=== PATIENT | female | born 1955 | race Two or more races ===

== ENCOUNTER 2024-01-04 19:39 | Inpatient (IN) | payer MEDICARE, MEDICAID ==
[~2024-01-04] VITALS: Ht 154.9 cm; Wt 107.6 kg
[2024-01-04 20:25] LABS: Basophils # (auto) 0 10 ^3/uL (0-0.2); Basophils % (auto) 0.6 % (0.0-2.0); Eosinophils # (auto) 0.1 10 ^3/uL (0-0.8); Hematocrit 40.1 % (36.0-46.0); Hemoglobin 13.9 g/dL (12.2-16.2); Lymphocytes # (auto) 2.1 10 ^3/uL (0.4-5.4); Lymphocytes % (auto) 28.7 % (10.0-50.0); Mean Corpuscular Hemoglobin 30.6 pg (28.0-32.0); Mean Corpuscular Hgb Conc. 34.7 g/dL (32.0-36.0); Mean Corpuscular Volume 88.1 fL (80.0-100.0); Monocytes # (auto) 0.8 10 ^3/uL (0-1.3); Monocytes % (auto) 10.5 % (0.0-12.0); Neutrophils # (auto) 4.2 10 ^3/uL (1.6-8.6); Neutrophils % (auto) 58.2 % (37.0-80.0); Nucleated Red Blood Cells % 0.2 %; Platelet Count (auto) 289 10^3/uL (140-450); Red Blood Cells 4.55 10^6/uL (4.0-5.20); Red Cell Distribution Width 13.6 % (11.8-14.3); White Blood Cell 7.3 10^3/uL (4.4-10.8)
[2024-01-04 20:43] LABS: Alanine Aminotransferase 28 U/L (7-40); Alkaline Phosphatase 104 U/L (46-116); Anion Gap 3 (5-15); Aspartate Aminotransferase 57 U/L (13-40); BUN/Creatinine Ratio 18.8 (10.0-20.0); Blood Urea Nitrogen 15 mg/dL (9-23); Calcium 10.1 mg/dL (8.7-10.4); Carbon Dioxide 29 mmol/L (20-30); Chloride 106 mmol/L (98-107); Glucose 92 mg/dL (74-106); Lipase 21 U/L (12-53); Potassium 4.5 mmol/L (3.5-5.1); Sodium 138 mmol/L (136-145)
[2024-01-04 20:44] LABS: Albumin 3.9 g/dL (3.2-4.8); Bilirubin, Total 0.5 mg/dL (0.2-1.0); Total Protein 7.4 g/dL (5.7-8.2)
[2024-01-04 21:49] VITALS: PULSE 92; RESP 16; O2SAT 97
[2024-01-04] MEDS: HYDROcodone-ACET 10/325MG TAB PO ONE (23:04)
[2024-01-04 23:56] LABS: Urine Bacteria FEW /hpf (None Seen); Urine Blood Negative /uL (Negative); Urine Clarity Clear (Clear); Urine Color Light-Yellow (Yellow); Urine Mucus FEW (None Seen); Urine Protein, UAD Negative (Negative); Urine Specific Gravity 1.015 (1.001-1.035); Urine Urobilinogen Normal (Negative); Urine WBC 1 /hpf (0 - 5)
[2024-01-05] MEDS: ONDANSETRON ODT 4 MG TAB PO ONE (00:20)
[2024-01-05] MEDS: MORPHINE SULFATE 4 MG/ML SYR/VIAL IV ONE (00:22)
[2024-01-05 01:00] VITALS: PULSE 99; RESP 14; O2SAT 94
[2024-01-05] MEDS ORDERED: DOCUSATE SOD 100 MG CAP PO PRN (01:30)
[2024-01-05] MEDS ORDERED: ACETAMINOPHEN 325 MG TAB PO PRN (01:30)
[2024-01-05] MEDS ORDERED: hydrALAZINE HCL 20 MG/ML VL IV PRN (01:30)
[2024-01-05] MEDS ORDERED: DEXTROSE (50%) 50ML SYRG IV PRN (01:30)
[2024-01-05] MEDS: hydrALAZINE HCL 20 MG/ML VL IV ONE (02:44)
[2024-01-05] MEDS: MORPHINE SULFATE INJ 2 MG/ml SYRG IV PRN (03:42)
[2024-01-05] MEDS: ONDANSETRON HCL 4 MG/2 ML VIAL IV PRN (03:42)
[2024-01-05] MEDS: TEMAZEPAM 15 MG CAP PO ONE (05:00)
[2024-01-05 05:18] LABS: Basophils # (auto) 0.1 10 ^3/uL (0-0.2); Basophils % (auto) 0.7 % (0.0-2.0); Eosinophils # (auto) 0.2 10 ^3/uL (0-0.8); Eosinophils % (auto) 2.1 % (0.0-7.0); Hematocrit 39.8 % (36.0-46.0); Hemoglobin 13.8 g/dL (12.2-16.2); Lymphocytes # (auto) 3.1 10 ^3/uL (0.4-5.4); Lymphocytes % (auto) 41.1 % (10.0-50.0); Mean Corpuscular Hemoglobin 30.9 pg (28.0-32.0); Mean Corpuscular Hgb Conc. 34.6 g/dL (32.0-36.0); Mean Corpuscular Volume 89.2 fL (80.0-100.0); Monocytes # (auto) 0.7 10 ^3/uL (0-1.3); Monocytes % (auto) 8.7 % (0.0-12.0); Neutrophils # (auto) 3.6 10 ^3/uL (1.6-8.6); Neutrophils % (auto) 47.4 % (37.0-80.0); Nucleated Red Blood Cells % 0.4 %; Platelet Count (auto) 284 10^3/uL (140-450); Red Blood Cells 4.46 10^6/uL (4.0-5.20); Red Cell Distribution Width 13.4 % (11.8-14.3); White Blood Cell 7.6 10^3/uL (4.4-10.8)
[2024-01-05 05:21] LABS: Alanine Aminotransferase 23 U/L (7-40); Albumin 3.7 g/dL (3.2-4.8); Alkaline Phosphatase 93 U/L (46-116); Anion Gap 10 (5-15); Aspartate Aminotransferase 57 U/L (13-40); BUN/Creatinine Ratio 16.2 (10.0-20.0); Bilirubin, Total 0.6 mg/dL (0.2-1.0); Blood Urea Nitrogen 12 mg/dL (9-23); Calcium 9.8 mg/dL (8.7-10.4); Carbon Dioxide 24 mmol/L (20-30); Chloride 105 mmol/L (98-107); Glucose 124 mg/dL (74-106); Potassium 4.1 mmol/L (3.5-5.1); Sodium 139 mmol/L (136-145); Total Protein 7.2 g/dL (5.7-8.2)
[2024-01-05] MEDS: SODIUM CHLOR 0.9% PF (SALINE LOCK) 10ML VIAL/SYR IV SCH (06:11)
[2024-01-05] MEDS: GABAPENTIN 300 MG CAP PO ONE (06:19)
[2024-01-05] MEDS: ACCU-CHEK COMFORT CURVE STRIP VI SCH (06:19)
[2024-01-05] MEDS: HYDROcodone-ACET 5/325MG TAB PO PRN (06:19)
[2024-01-05] MEDS: InsuLIN REG 1unit/0.01ml Soln (100units/ml) SC SCH ×2 (06:28→21:11)
[2024-01-05] MEDS ORDERED: MORPHINE SULFATE INJ 2 MG/ml SYRG IV PRN (06:30)
[2024-01-05] MEDS ORDERED: NITROGLYCERIN 0.4 MG SL TAB SL PRN (06:30)
[2024-01-05 08:00] VITALS: PULSE 104; RESP 21; O2SAT 93
[2024-01-05 16:15] VITALS: PULSE 86; RESP 18; O2SAT 96
[2024-01-05 16:43] VITALS: BP 145/83; PULSE 104; RESP 19; TEMP 98.3; O2SAT 96
[2024-01-05 21:00] VITALS: BP 152/79; PULSE 104; RESP 18; TEMP 99; O2SAT 95
[2024-01-05] MEDS: GABAPENTIN 400 MG CAP PO SCH (21:10)
[2024-01-06 01:00] VITALS: BP 105/76; PULSE 98; RESP 20; TEMP 98.4; O2SAT 94
[2024-01-06 05:00] VITALS: BP 106/58; PULSE 75; RESP 20; TEMP 98.1; O2SAT 93
[2024-01-06 07:13] LABS: Basophils # (auto) 0 10 ^3/uL (0-0.2); Basophils % (auto) 0.4 % (0.0-2.0); Eosinophils # (auto) 0.2 10 ^3/uL (0-0.8); Eosinophils % (auto) 2.4 % (0.0-7.0); Hemoglobin 13.4 g/dL (12.2-16.2); Lymphocytes # (auto) 2.7 10 ^3/uL (0.4-5.4); Lymphocytes % (auto) 35.4 % (10.0-50.0); Mean Corpuscular Hemoglobin 31.7 pg (28.0-32.0); Mean Corpuscular Hgb Conc. 35.2 g/dL (32.0-36.0); Mean Corpuscular Volume 89.9 fL (80.0-100.0); Monocytes # (auto) 0.7 10 ^3/uL (0-1.3); Monocytes % (auto) 9.5 % (0.0-12.0); Neutrophils % (auto) 52.3 % (37.0-80.0); Platelet Count (auto) 274 10^3/uL (140-450); Red Blood Cells 4.23 10^6/uL (4.0-5.20); Red Cell Distribution Width 13.7 % (11.8-14.3); White Blood Cell 7.5 10^3/uL (4.4-10.8)
[2024-01-06 07:35] LABS: Alanine Aminotransferase 23 U/L (7-40); Alkaline Phosphatase 86 U/L (46-116); Anion Gap 7 (5-15); BUN/Creatinine Ratio 14.8 (10.0-20.0); Blood Urea Nitrogen 12 mg/dL (9-23); Calcium 9.7 mg/dL (8.7-10.4); Carbon Dioxide 26 mmol/L (20-30); Chloride 102 mmol/L (98-107); Glucose 231 mg/dL (74-106); Potassium 4.8 mmol/L (3.5-5.1); Sodium 135 mmol/L (136-145)
[2024-01-06 07:36] LABS: Albumin 3.4 g/dL (3.2-4.8); Aspartate Aminotransferase 47 U/L (13-40); Bilirubin, Total 0.5 mg/dL (0.2-1.0); Total Protein 6.7 g/dL (5.7-8.2)
[2024-01-06 09:00] VITALS: BP 112/65; PULSE 74; RESP 20; TEMP 98.7; O2SAT 93
[2024-01-06 12:57] VITALS: BP 108/54; PULSE 72; RESP 18; TEMP 97.7; O2SAT 90
[2024-01-06 17:00] VITALS: BP 108/58; PULSE 71; RESP 18; TEMP 98.1; O2SAT 94
[2024-01-06 21:00] VITALS: BP 117/71; PULSE 94; RESP 18; TEMP 98.8; O2SAT 96
[2024-01-07 01:00] VITALS: BP 144/69; PULSE 98; RESP 18; TEMP 99; O2SAT 95
[2024-01-07 05:00] VITALS: BP 107/68; PULSE 76; RESP 16; TEMP 98.3; O2SAT 96
[2024-01-07 09:00] VITALS: BP 104/64; PULSE 73; RESP 16; TEMP 98.5; O2SAT 90
[2024-01-07 13:00] VITALS: BP 105/62; PULSE 78; RESP 16; TEMP 98.6; O2SAT 92
[2024-01-07 17:00] VITALS: BP 120/69; PULSE 79; RESP 16; TEMP 98.4; O2SAT 93
[2024-01-07 21:00] VITALS: BP 105/59; PULSE 94; RESP 17; TEMP 98; O2SAT 93
[2024-01-07] MEDS: TEMAZEPAM 15 MG CAP PO PRN (22:32)
[2024-01-08 01:00] VITALS: BP 119/94; PULSE 102; RESP 17; TEMP 98.2; O2SAT 94
[2024-01-08 05:00] VITALS: BP 123/75; PULSE 88; RESP 17; TEMP 97.9; O2SAT 94
[2024-01-08 09:00] VITALS: BP 113/76; PULSE 85; RESP 16; TEMP 97.6; O2SAT 92
[2024-01-08] MEDS ORDERED: HYDR-4902 PO (09:54)
[2024-01-08 13:00] VITALS: BP 99/63; PULSE 93; RESP 16; TEMP 98.2; O2SAT 92
[2024-01-08 17:25] VITALS: BP 127/71; PULSE 94; RESP 16; TEMP 98.1; O2SAT 97
== END 2024-01-08 18:00 | disposition home health service (06) | DRG 552 ==
LOC: ER 19:39 → EDBD 19:39 → OVERFLOW 01-05 06:27 → EAST 01-05 16:23
PROVIDERS: ADMIT Nurse Practitioner Family; ATTEND Family Medicine
DX: M47.26 Other spondylosis with radiculopathy, lumbar region (principal); M31.8 Other specified necrotizing vasculopathies; M51.17 Intervertebral disc disorders with radiculopathy, lumbosacral region; M48.062 Spinal stenosis, lumbar region with neurogenic claudication; E11.40 Type 2 diabetes mellitus with diabetic neuropathy, unspecified; E11.65 Type 2 diabetes mellitus with hyperglycemia; E66.01 Morbid (severe) obesity due to excess calories; E11.42 Type 2 diabetes mellitus with diabetic polyneuropathy; E11.41 Type 2 diabetes mellitus with diabetic mononeuropathy; G89.29 Other chronic pain; Z79.899 Other long term (current) drug therapy; Z68.35 Body mass index [BMI] 35.0-35.9, adult
CPT/HCPCS: 36415; 72131; 72148; 80053; 81001; 82962; 83605; 83690; 83880; 84484; 85025; 93925; 93970; 97163; G0378; J1815; J2405; Q0162

== ENCOUNTER 2024-03-29 02:34 | Inpatient (IN) | payer MEDICARE, MEDICAID ==
[~2024-03-29] VITALS: Ht 154.9 cm; Wt 110.1 kg
[~2024-03-29 02:34] MED LIST: HYDR-4902 PO
--- NOTE | 2024-03-29 02:54 | ED.PDOC ---
History of Present Illness HPI Comments 68-year-old female who came to ER via EMS for weakness. Patient does have history of degenerative joint disease lumbosacral spine, and diabetic neuropathy. States for the past 3 days, she has been experiencing generalized body weakness, and generalized body/muscle and joint pains. Also complaining of left lower extremity pain, and recent stuttering in her speech. Chief Complaint: Weakness Time Seen by MD: 02:54 Reviewed Notes: Nurses Notes Allergies: Coded Allergies: NO KNOWN ALLERGIES (Unverified , 01/05/24) Home Meds Active Scripts Hydrocodone-Acetaminophen (Hydrocodone Bitartrate/AC 5-325 mg) 1 Tab Tab, 1 TAB PO QID PRN, #30 TAB Prov:GABRIELLA ANDUJAR MD 01/08/24 Information Source: Patient Mode of Arrival: EMS Severity: Moderate Timing: Hours Duration: Since onset Prehospital treatment: None Past Medical History PAST MEDICAL HISTORY: DM, Denies Past Medical History (Other): Degenerative joint disease lumbosacral spine, diabetic neuropathy Surgical History: Denies all surgeries 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 History Family History Family History: Reviewed,noncontributory to illness Social History Smoker: Non-Smoker Alcohol: Denies ETOH Use Drugs: Denies Drug Use Lives In: Home Constitutional: reports: weakness, others (Generalized muscle and joint pains); denies: chills, diaphoresis, fatigue, fever, malaise, sweats EENTM: denies: blurred vision, double vision, ear bleeding, ear discharge, ear drainage, ear pain, ear ringing, eye pain, eye redness, hearing loss, mouth pain, mouth swelling, nasal discharge, nose bleeding, nose congestion, nose pain, photophobia, tearing, throat pain, throat swelling, voice changes, others Respiratory: denies: cough, hemoptysis, orthopnea, SOB at rest, shortness of breath, SOB with excertion, stridor, wheezing, others Cardiovascular: denies: chest pain, dizzy spells, diaphoresis, Dyspnea on exertion, edema, irregular heart beat, left arm pain, lightheadedness, palpitations, PND, syncope, others Gastrointestinal: denies: abdomen distended, abdominal pain, blood streaked bowels, constipated, diarrhea, dysphagia, difficulty swallowing, hematemesis, melena, nausea, poor appetite, poor fluid intake, rectal bleeding, rectal pain, vomiting, others Genitourinary: denies: abnormal vagina bleeding, burning, dyspareunia, dysuria, flank pain, frequency, hematuria, incontinence, pain, , vagina discharge, urgency, others Neurological: denies: dizziness, fainting, headache, left sided numbness, left sided weakness, numbness, paresthesia, pre-existing deficit, right sided numbness, right sided weakness, seizure, speech problems, tingling, tremors, weakness, others Musculoskeletal: denies: back pain, gout, joint pain, joint swelling, muscle pain, muscle stiffness, neck pain, others Integumetry: denies: bruises, change in color, change in hair/nails, dryness, laceration, lesions, lumps, rash, wounds, others Allergic/Immunocompromised: denies: Difficulty Healing, Frequent Infections, Hives, Itching, others Hematologic/Lymphatic: denies: anemia, blood clots, easy bleeding, easy bruising, swollen glands, others Endocrine: denies: excessive hunger, excessive sweating, excessive thirst, excessive urination, flushing, intolerance to cold, intolerance to heat, unexplained weight gain, unexplained weight loss, others Psychiatric: denies: anxiety, bipolar disorder, depression, hopeless, panic disorder, schizophrenia, sleepless, suicidal, others Physical Exam General Appearance: No Apparent Distress, Normal HEENT: Normal ENT Inspection, Pharynx Normal, TMs Normal Neck: Full Range of Motion, Non-Tender, Normal, Normal Inspection Respiratory: Chest Non-Tender, Lungs Clear, No Accessory Muscle Use, No Respiratory Distress, Normal Breath Sounds Cardiovascular: No Edema, No JVD, No Murmur, No Gallop, Normal Peripheral Pulses, Regular Rate/Rhythm Breast Exam: Deferred Gastrointestinal: No Organomegaly, Non Tender, No Pulsatile Mass, Normal Bowel Sounds, Soft Genitalia: Deferred Pelvic: Deferred Rectal: Deferred Extremities: No calf tenderness, Normal capillary refill, Normal inspection, Normal range of motion, Non-tender, No pedal edema Musculoskeletal : Apperance: Normal Neurologic: Alert, clinical psychology professor II-XII nml as Tested, No Motor Deficits, Normal Affect, Normal Mood, No Sensory Deficits Cerebellar Function: Normal Reflexes: Normal Skin: Dry, Normal Color, Warm Lymphatic: No Adenopathy Was a procedure done? Was a procedure done?: No Differential Dx Considerations may include: Anemia, electrolyte imbalance, degenerative joint disease, diabetic neuropathy X-Ray, Labs, Meds, VS Vital Signs Date Time Temp Pulse Resp B/P (MAP) Pulse Ox O2 Delivery O2 Flow Rate FiO2 03/29/24 04:16 101 20 162/97 03/29/24 02:34 97.6 102 14 129/82 (98) 99 Lab Test 03/29/24 03:50 03/29/24 03:00 Range/Units Urine Color Yellow Yellow Urine Clarity Turbid H Clear Urine pH 6.0 5.0-9.0 Urine Specific [place] 1.023 1.001-1.035 Urine Protein Trace H Negative Urine Ketones Negative Negative Urine Blood Negative Negative /uL Urine Nitrite Negative Negative Urine Bilirubin Negative Negative Urine Urobilinogen Normal Negative mg/dL Urine Leukocyte Esterase 2+ Negative /uL Urine RBC 1 0 - 4 /hpf Urine WBC 41 0 - 5 /hpf Urine Squamous Epithelial Cells Few <5 /hpf Urine Bacteria Few H None Seen /hpf Urine Mucus Few None Seen Urine Glucose 4+ H Normal mg/dL Troponin I High Sensitivity Pending 3 L </=34 ng/L White Blood Count 9.6 4.4-10.8 10^3/uL Red Blood Count 4.99 4.0-5.20 10^6/uL Hemoglobin 15.3 12.2-16.2 g/dL Hematocrit 45.2 36.0-46.0 % Mean Corpuscular Volume 90.5 80.0-100.0 fL Mean Corpuscular Hemoglobin 30.6 28.0-32.0 pg Mean Corpuscular Hemoglobin Concent 33.9 32.0-36.0 g/dL Red Cell Distribution Width 14.4 H 11.8-14.3 % Platelet Count 273 140-450 10^3/uL Mean Platelet Volume 8.0 6.9-10.8 fL Neutrophils (%) (Auto) 66.1 37.0-80.0 % Lymphocytes (%) (Auto) 25.6 10.0-50.0 % Monocytes (%) (Auto) 7.2 0.0-12.0 % Eosinophils (%) (Auto) 0.5 0.0-7.0 % Basophils (%) (Auto) 0.6 0.0-2.0 % Neutrophils # (Auto) 6.4 1.6-8.6 10 ^3/uL Lymphocytes # (Auto) 2.5 0.4-5.4 10 ^3/uL Monocytes # (Auto) 0.7 0-1.3 10 ^3/uL Eosinophils # (Auto) 0 0-0.8 10 ^3/uL Basophils # (Auto) 0.1 0-0.2 10 ^3/uL Nucleated Red Blood Cells 0.1 % Sodium Level 138 136-145 mmol/L Potassium Level 3.5 3.5-5.1 mmol/L Chloride Level 102 98-107 mmol/L Carbon Dioxide Level 28 20-31 mmol/L Anion Gap 8 5-15 Blood Urea Nitrogen 9 9-23 mg/dL Creatinine 0.73 0.550-1.02 mg/dL Glomerular Filtration Rate Calc 91 >90 mL/min BUN/Creatinine Ratio 12.3 10.0-20.0 Serum Glucose 224 H 74-106 mg/dL Calcium Level 9.9 8.7-10.4 mg/dL Current Medications Medications (Trade) Dose Ordered Sig/Ibrahima Route Start Time Stop Time Status Last Admin Morphine Sulfate 4 mg ONCE ONCE IV 03/29/24 04:00 03/29/24 04:01 DC 03/29/24 04:16 Ondansetron HCl (Zofran) 4 mg ONCE ONCE IV 03/29/24 04:00 03/29/24 04:01 DC 03/29/24 04:15 Time of 1ST Reevaluation: 02:49 Reevaluation 1ST: Unchanged Patient Education/Counseling: Diagnosis, Treatment Family Education/Counseling: Diagnosis, Treatment Departure 1 Departure Time of Disposition: 04:36 (Patient with worsening weakness and fatigue. Found to have a urinary tract infection. Treating patient with antibiotics and we will admit patient for further workup.) Impression: Primary Impression: Generalized weakness Additional Impression: Urinary tract infection Qualified Codes: N30.00 - Acute cystitis without hematuria Disposition: ADMITTED INPATIENT Admit to: Med Surg Condition: Serious Critical Care Note Critical Care Time?: No Stability Stability form required: No Heart Score Heart Score: Heart Score Response (Comments) Value History N/A 0 EKG N/A 0 Age N/A 0 Risk Factors N/A 0 Troponin N/A 0 Total 0 I personally scribed for HUMERA MCKINNON MD ([email or web address]) on 03/29/24 at 02:54. Electronically submitted by Olayinka Tobias ([email or web address]). HUMERA MCKINNON MD Mar 29, 2024 02:54
[2024-03-29 03:00] VITALS: PULSE 101; RESP 12; O2SAT 93
[2024-03-29 03:27] LABS: Basophils # (auto) 0.1 10 ^3/uL (0-0.2); Basophils % (auto) 0.6 % (0.0-2.0); Eosinophils # (auto) 0 10 ^3/uL (0-0.8); Eosinophils % (auto) 0.5 % (0.0-7.0); Hematocrit 45.2 % (36.0-46.0); Hemoglobin 15.3 g/dL (12.2-16.2); Lymphocytes # (auto) 2.5 10 ^3/uL (0.4-5.4); Lymphocytes % (auto) 25.6 % (10.0-50.0); Mean Corpuscular Hemoglobin 30.6 pg (28.0-32.0); Mean Corpuscular Hgb Conc. 33.9 g/dL (32.0-36.0); Mean Corpuscular Volume 90.5 fL (80.0-100.0); Monocytes # (auto) 0.7 10 ^3/uL (0-1.3); Monocytes % (auto) 7.2 % (0.0-12.0); Neutrophils # (auto) 6.4 10 ^3/uL (1.6-8.6); Neutrophils % (auto) 66.1 % (37.0-80.0); Nucleated Red Blood Cells % 0.1 %; Platelet Count (auto) 273 10^3/uL (140-450); Red Blood Cells 4.99 10^6/uL (4.0-5.20); Red Cell Distribution Width 14.4 % (11.8-14.3); White Blood Cell 9.6 10^3/uL (4.4-10.8)
[2024-03-29 03:32] LABS: Chloride 102 mmol/L (98-107); Potassium 3.5 mmol/L (3.5-5.1); Sodium 138 mmol/L (136-145)
[2024-03-29 03:33] LABS: Anion Gap 8 (5-15); Calcium 9.9 mg/dL (8.7-10.4); Carbon Dioxide 28 mmol/L (20-31)
[2024-03-29 03:38] LABS: BUN/Creatinine Ratio 12.3 (10.0-20.0); Blood Urea Nitrogen 9 mg/dL (9-23)
[2024-03-29 03:55] LABS: Glucose 224 mg/dL (74-106)
--- NOTE | 2024-03-29 04:07 | DVH ---
EXAM: CT HEAD WITHOUT CONTRAST INDICATION: weakness TECHNIQUE: CT of the head without intravenous contrast. Radiation Dose Information: CT Dose: CTDI volume is 25 mGy. Dose-length product is 250 mGy*cm The dose indicators for CT are the volume Computed Tomography (CT) Dose Index (CTDIvol) and the Dose Length Product (DLP), and are measured in units of mGy and mGy-cm, respectively. These indicators are not patient dose, but values generated from the CT scanner acquisition factors. The report includes radiation exposure data for exposures received during this examination. COMPARISON: CT LS SPINE WO CONTRAST on DOS: 01/04/24 FINDINGS: There is no evidence of acute intracranial hemorrhage, extra-axial collection, mass effect, midline s hift, herniation or hydrocephalus. The ventricles, sulci and cisterns are age appropriate. The purvis-white differentiation is intact. Patchy periventricular and subcortical white matter hypoattenuation is nonspecific but may be related to small vessel ischemic disease. The visualized paranasal sinuses and mastoid air cells are clear. The surrounding soft tissues and osseous structures are unremarkable. IMPRESSION: No acute intracranial abnormality.
[2024-03-29 04:09] LABS: Urine Bacteria FEW /hpf (None Seen); Urine Blood Negative /uL (Negative); Urine Clarity Turbid (Clear); Urine Color Yellow (Yellow); Urine Mucus FEW (None Seen); Urine Protein, UAD TRACE (Negative); Urine Specific Gravity 1.023 (1.001-1.035); Urine Urobilinogen Normal (Negative); Urine WBC 41 /hpf (0 - 5)
[2024-03-29] MEDS: ONDANSETRON HCL 4 MG/2 ML VIAL IV ONE (04:15)
[2024-03-29] MEDS: MORPHINE SULFATE 4 MG/ML SYR/VIAL IV ONE (04:16)
--- NOTE | 2024-03-29 04:21 | DVH ---
CHEST RADIOGRAPH Indication: weakness Technique: Single frontal view of the chest was obtained Comparison: None IMPRESSION: The heart is prominent in size. No sizable effusion, focal airspace opacity, or pneumothorax. Calcif ications of the aortic knob.
[2024-03-29] MEDS ORDERED: ACETAMINOPHEN 325 MG TAB PO PRN (04:45)
[2024-03-29] MEDS ORDERED: DOCUSATE SOD 100 MG CAP PO PRN (04:45)
[2024-03-29] MEDS ORDERED: hydrALAZINE HCL 20 MG/ML VL IV PRN (04:45)
[2024-03-29] MEDS ORDERED: DEXTROSE (50%) 50ML SYRG IV PRN (04:45)
[2024-03-29 05:22] LABS: Anion Gap 8 (5-15); BUN/Creatinine Ratio 12.3 (10.0-20.0); Blood Urea Nitrogen 9 mg/dL (9-23); Calcium 9.8 mg/dL (8.7-10.4); Carbon Dioxide 27 mmol/L (20-31); Chloride 103 mmol/L (98-107); Potassium 3.9 mmol/L (3.5-5.1); Sodium 138 mmol/L (136-145)
[2024-03-29 05:23] LABS: Bilirubin, Total 0.6 mg/dL (0.2-1.0)
[2024-03-29 05:25] LABS: Alanine Aminotransferase 49 U/L (7-40); Alkaline Phosphatase 133 U/L (46-116); Aspartate Aminotransferase 53 U/L (13-40); Glucose 234 mg/dL (74-106)
[2024-03-29] MEDS: SODIUM CHLORIDE 0.9% 1,000 ML IV SCH (05:34)
[2024-03-29] MEDS: cefTRIAXone 1GM/50ML D5W 50 ML IV ONE (05:34)
--- NOTE | 2024-03-29 05:49 | DVHHP2 ---
History of Present Illness Reason for Visit: Generalized weakness History of Present Illness The patient is a 68-year-old female with past medical history of diabetes mellitus, hypertension, and DJD who presented to [facility] ED with complaint of generalized weakness. Patient reports for the past 3 days, she has been experiencing generalized body weakness, left lower extremity pain, and recent stuttering in her speech, generalized body/muscle and joint pains. Patient was seen and evaluated in the ED, laboratory data shows WBC 9.6, platelets 273, sodium 138, potassium 3.5, BUN 9, creatinine 0.73, glucose 224, troponin 3, urinalysis positive for urinary tract infection. Patient was started on IV antibiotic regimen Rocephin, please see medication orders section in the computer. On my assessment, patient denied chest pain, no headache, no dizziness, no diaphoresis, no shortness of breath, no nausea, no vomiting, no fever, no chills. Patient was admitted for further evaluation and medical management. Past Medical History DM, Hypertension, Degenerative joint disease, Lumbosacral spine, Diabetic neuropathy Past Surgical History Denies all surgeries Family History Reviewed, noncontributory to the management of this case. Past Social History The patient lives at home, denies smoking, alcohol or illicit drugs abuse. Review of Systems Constitutional: Yes: Weakness; No: Fever, Chills, Sweats, Malaise, Other Eyes: No: Pain, Vision change, Conjunctivae inflammation, Eyelid inflammation, Other, Redness ENT: No: Ear pain, Ear discharge, Nose pain, Nose discharge, Nose congestion, Mouth pain, Mouth swelling, Throat pain, Throat swelling, Other Respiratory: No: Cough, Dry, Shortness of breath, SOB with excertion, Wheezing, Hemoptysis, Pleuritic Pain, Sputum, Wheezing, Other Cardiovascular: No: Chest Pain, Palpitations, Orthopnea, Paroxysmal Noc. Dyspnea, Edema, Lt Headedness, Other Gastrointestinal: No: Nausea, Vomiting, Abdominal Pain, Diarrhea, Constipation, Melena, Hematochezia, Other Genitourinary: No Dysuria, No Frequency, No Incontinence, No Hematuria, No Retention, No Other Musculoskeletal: No: other, neck pain, shoulder pain, arm pain, back pain, hand pain, leg pain, foot pain Skin: No: Rash, Lesions, Jaundice, Bruising, Other Neurological: No: Weakness, Numbness, Incoordination, Change in speech, Confusion, Seizures, Other Allergies: Coded Allergies: NO KNOWN ALLERGIES (Unverified , 01/05/24) Medications Current Medications Medications Dose Ordered Sig/Ibrahima Route Start Time Stop Time Status Last Admin Dose Admin Ceftriaxone Sodium 50 ml @ 100 mls/hr DAILY@09 IV 03/30/24 09:00 Hydralazine HCl 10 mg Q6HP PRN IV 03/29/24 04:45 Diagnostic Test (Pha) 1 strip ACHS 03/29/24 07:00 Insulin Human Regular HS SC 03/29/24 22:00 Insulin Human Regular AC SC 03/29/24 07:00 Dextrose 50 ml UD PRN IV 03/29/24 04:45 Sodium Chloride 1,000 ml @ 60 mls/hr [id number] IV 03/29/24 04:45 03/29/24 05:34 60 MLS/HR Acetaminophen/ Hydrocodone Bitart 1 tab Q4HP PRN PO 03/29/24 04:45 Ondansetron HCl 4 mg Q4HP PRN IV 03/29/24 04:45 Docusate Sodium 100 mg BIDPRN PRN PO 03/29/24 04:45 Acetaminophen 650 mg Q6HP PRN PO 03/29/24 04:45 Morphine Sulfate 2 mg Q4HPRN PRN IV 03/29/24 04:45 Exam Vital Signs Vital Signs Date Time Temp Pulse Resp B/P (MAP) Pulse Ox O2 Delivery O2 Flow Rate FiO2 03/29/24 05:00 95 16 127/74 (91) 100 03/29/24 03:00 Room Air* 0 21 21 03/29/24 03:00 98.3 98.3 General Appearance: Alert, Oriented X3, Cooperative, No acute distress HEENT: Atraumatic, PERRLA, EOMI, Mucous membr. moist/pink Respiratory: Clear to auscultation, Normal air movement Cardiovascular: Regular rate, Normal S1, Normal S2, No murmurs Abdominal: Normal bowel sounds, Soft, No tenderness, No hepatospenomegaly, No masses Extremities: No clubbing, No cyanosis, No edema, Normal pulses, No tenderness/swelling Skin: No rashes, No breakdown, No significant lesion Neuro: Normal speech, Normal tone, Sensation intact, Cranial nerves 3-12 NL, Reflexes 2+, Other (Generalized weakness) Psych/Mental Status: Mental status NL, Mood NL Labs/Xrays Labs Test 03/29/24 03:50 03/29/24 03:00 Range/Units Urine Color Yellow Yellow Urine Clarity Turbid H Clear Urine pH 6.0 5.0-9.0 Urine Specific [place] 1.023 1.001-1.035 Urine Protein Trace H Negative Urine Ketones Negative Negative Urine Blood Negative Negative /uL Urine Nitrite Negative Negative Urine Bilirubin Negative Negative Urine Urobilinogen Normal Negative mg/dL Urine Leukocyte Esterase 2+ Negative /uL Urine RBC 1 0 - 4 /hpf Urine WBC 41 0 - 5 /hpf Urine Squamous Epithelial Cells Few <5 /hpf Urine Bacteria Few H None Seen /hpf Urine Mucus Few None Seen Urine Glucose 4+ H Normal mg/dL Sodium Level 138 136-145 mmol/L Potassium Level 3.9 3.5-5.1 mmol/L Chloride Level 103 98-107 mmol/L Carbon Dioxide Level 27 20-31 mmol/L Anion Gap 8 5-15 Blood Urea Nitrogen 9 9-23 mg/dL Creatinine 0.73 0.550-1.02 mg/dL Glomerular Filtration Rate Calc 91 >90 mL/min BUN/Creatinine Ratio 12.3 10.0-20.0 Serum Glucose 234 H 74-106 mg/dL Calcium Level 9.8 8.7-10.4 mg/dL Total Bilirubin 0.6 0.2-1.0 mg/dL Aspartate Amino Transferase (AST) 53 H 13-40 U/L Alanine Aminotransferase (ALT) 49 H 7-40 U/L Alkaline Phosphatase 133 H 46-116 U/L Troponin I High Sensitivity < 3 L </=34 ng/L Total Protein 8.0 5.7-8.2 g/dL Albumin 4.0 3.2-4.8 g/dL White Blood Count 9.6 4.4-10.8 10^3/uL Red Blood Count 4.99 4.0-5.20 10^6/uL Hemoglobin 15.3 12.2-16.2 g/dL Hematocrit 45.2 36.0-46.0 % Mean Corpuscular Volume 90.5 80.0-100.0 fL Mean Corpuscular Hemoglobin 30.6 28.0-32.0 pg Mean Corpuscular Hemoglobin Concent 33.9 32.0-36.0 g/dL Red Cell Distribution Width 14.4 H 11.8-14.3 % Platelet Count 273 140-450 10^3/uL Mean Platelet Volume 8.0 6.9-10.8 fL Neutrophils (%) (Auto) 66.1 37.0-80.0 % Lymphocytes (%) (Auto) 25.6 10.0-50.0 % Monocytes (%) (Auto) 7.2 0.0-12.0 % Eosinophils (%) (Auto) 0.5 0.0-7.0 % Basophils (%) (Auto) 0.6 0.0-2.0 % Neutrophils # (Auto) 6.4 1.6-8.6 10 ^3/uL Lymphocytes # (Auto) 2.5 0.4-5.4 10 ^3/uL Monocytes # (Auto) 0.7 0-1.3 10 ^3/uL Eosinophils # (Auto) 0 0-0.8 10 ^3/uL Basophils # (Auto) 0.1 0-0.2 10 ^3/uL Nucleated Red Blood Cells 0.1 % PATIENT: OVIDIO ZENDEJASACCT: [id number] UNIT: [id number] : 1955 LOC: ER ROOM / BED: / AGE / SEX: 68 / F ADM STATUS: REG ER SERVICE 025 ORDERING PHYSICIAN: HUMERA MCKINNON MD PROCEDURE(s): HWOCT - HEAD WITHOUT CONTRAST REASON: weakness ORDER NUMBER(s): [id number], ACCESSION NUMBER(s): [id number] EXAM: CT HEAD WITHOUT CONTRAST INDICATION: weakness TECHNIQUE: CT of the head without intravenous contrast. Radiation Dose Information: CT Dose: CTDI volume is 25 mGy. Dose-length product is 250 mGy*cm The dose indicators for CT are the volume Computed Tomography (CT) Dose Index (CTDIvol) and the Dose Length Product (DLP), and are measured in units of mGy and mGy-cm, respectively. These indicators are not patient dose, but values generated from the CT scanner acquisition factors. The report includes radiation exposure data for exposures received during this examination. COMPARISON: CT LS SPINE WO CONTRAST on DOS: 01/04/24 FINDINGS: There is no evidence of acute intracranial hemorrhage, extra-axial collection, mass effect, midline shift, herniation or hydrocephalus. The ventricles, sulci and cisterns are age appropriate. The purvis-white differentiation is intact. Patchy periventricular and subcortical white matter hypoattenuation is nonspecific but may be related to small vessel ischemic disease. The visualized paranasal sinuses and mastoid air cells are clear. The surrounding soft tissues and osseous structures are unremarkable. IMPRESSION: No acute intracranial abnormality. ORDERING PHYSICIAN: HUMERA MCKINNON MD PROCEDURE(s): CXRP - CHEST PORTABLE REASON: weakness ORDER NUMBER(s): [id number], ACCESSION NUMBER(s): [id number] CHEST RADIOGRAPH Indication: weakness Technique: Single frontal view of the chest was obtained Comparison: None IMPRESSION: The heart is prominent in size. No sizable effusion, focal airspace opacity, or pneumothorax. Calcifications of the aortic knob. Assessment/Plan Assessment/Plan Generalized weakness Urinary tract infection Acute cystitis without hematuria Diabetes mellitus with hyperglycemia Plan 1. Admit to med surge unit 2. Breathing treatment 3. Pain control management 4. IV antibiotic management 5. Management of fluids and electrolytes 6. Consultation for hospitalist 7. Diagnostic test chest x-ray 8. DVT prophylaxis-on SCDs 9. Repeat labs CBC, CMP in a.m. 10. Home medication reviewed and reconciled 11. Continue with current medical management 12. Treatment plan discussed with patient and RN. Patient verbalized understanding. Plan discussed with: Patient, Other (RN) My Orders Orders - ANGELA LION DNP Procedure Category Date Status Time Consistent DIET 03/29/24 Transmitted Carb(Ccho)Diabetes Breakfast Hydralazine Injection PHA 03/29/24 In Process (Apresoline Inject 04:45 Glucose Blood PHA 03/29/24 In Process (Accu-Chek Comfort 07:00 Insulin R (Human) PHA 03/29/24 In Process (Insulin R) 22:00 Insulin R (Human) PHA 03/29/24 In Process (Insulin R) 07:00 Dextrose 50% Syringe PHA 03/29/24 In Process 04:45 Allergies MAI 03/29/24 In Process 04:41 Code Status CODE 03/29/24 Transmitted 04:41 Sodium Chloride 0.9% PHA 03/29/24 In Process 04:45 Oxygen Per Hour RT 03/29/24 Transmitted 04:41 Hydrocodone-Acet PHA 03/29/24 In Process 5/325mg Tab ([place] 04:45 Ondansetron Hcl PHA 03/29/24 In Process (Zofran) 04:45 Docusate Sodium PHA 03/29/24 In Process Capsule (Colace 04:45 Complete Blood Count LAB 03/30/24 Verified 04:00 Comprehensive LAB 03/30/24 Verified Metabolic Panel 04:00 Condition: Serious MAI 03/29/24 In Process 04:41 Acetaminophen Tablet PHA 03/29/24 In Process (Tylenol Tablet) 04:45 Bedrest With Bathroom MAI 03/29/24 In Process Privileg 04:41 Morphine Sulfate PHA 03/29/24 In Process Injection 04:45 Sequential MAI 03/29/24 In Process Compression Device Urine Bacterial CARMEN 03/29/24 In Process Culture 04:46 Ceftriaxone 1gm/50ml PHA 03/30/24 In Process D5w (Rocephin) 09:00 Admit ADMIT 03/29/24 Verified 05:46 Nitroglycerin PHA 03/29/24 Verified Sublingual (Ntrostat 06:00 Morphine Sulfate PHA 03/29/24 Verified Injection 06:00 Notify Md Of Changes MAI 03/29/24 Verified From Base 05:46 Emergency Dysrhythmia [facility] 03/29/24 Verified Protocol 05:46 Oxygen By Nasal RT 03/29/24 Verified Cannula 05:46 Problem List: (1) Generalized weakness (2) Urinary tract infection (3) Acute cystitis without hematuria (4) Diabetes mellitus with hyperglycemia Date of Service: Mar 29, 2024 Billing Provider: ANGELA LION DNP Common Visit Codes: 40654-GXGQFSY INP/OBS CARE (HIGH) ANGELA LION DNP Mar 29, 2024 05:49
[2024-03-29] MEDS ORDERED: NITROGLYCERIN 0.4 MG SL TAB SL PRN (06:00)
[2024-03-29] MEDS: ACCU-CHEK COMFORT CURVE STRIP VI SCH (06:01)
[2024-03-29] MEDS: InsuLIN REG 1unit/0.01ml Soln (100units/ml) SC SCH ×2 (06:07→22:00)
[2024-03-29 09:00] VITALS: PULSE 98; RESP 18; O2SAT 96
[2024-03-29] MEDS: MORPHINE SULFATE INJ 2 MG/ml SYRG IV PRN (09:25)
[2024-03-29] MEDS: HYDROcodone-ACET 5/325MG TAB PO PRN (11:56)
--- NOTE | 2024-03-29 12:53 | DVHPN2 ---
Reviewed: Care Plan, H&P, Labs, Medications, Previous Orders, Radiology Changes from previous H/P or p: No Changes Eyes: No Pain, No Vision change, No Conjunctivae inflammation, No Eyelid inflammation, No Other, No Redness ENT: No Ear pain, No Ear discharge, No Nose pain, No Nose discharge, No Nose congestion, No Mouth pain, No Mouth swelling, No Throat pain, No Throat swelling, No Other Cardiovascular: No Chest Pain, No Palpitations, No Orthopnea, No Paroxysmal Noc. Dyspnea, No Edema, No Lt Headedness, No Other Respiratory: No Cough, No Dry, No Shortness of breath, No SOB with excertion, No Wheezing, No Hemoptysis, No Pleuritic Pain, No Sputum, No Other Gastrointestinal: No Nausea, No Vomiting, No Abdominal Pain, No Diarrhea, No Constipation, No Melena, No Hematochezia, No Other Genitourinary: No Dysuria, No Frequency, No Incontinence, No Hematuria, No Retention, No Other Musculoskeletal: No other, No neck pain, No shoulder pain, No arm pain, No back pain, No hand pain, No leg pain, No foot pain Skin: No Rash, No Lesions, No Jaundice, No Bruising, No Other Objective Vitals Vital Signs Date Time Temp Pulse Resp B/P (MAP) Pulse Ox O2 Delivery O2 Flow Rate FiO2 03/29/24 10:15 96 16 138/83 03/29/24 09:43 95 03/29/24 09:00 Nasal Cannula* 2 28 03/29/24 03:00 98.3 98.3 Intake/Output Intake and Output 03/29/24 07:00 Intake Total 90 ml Balance 90 ml Intake IV Total 90 ml Medications Current Medications Medications Dose Ordered Sig/Ibrahima Route Start Time Stop Time Status Last Admin Dose Admin Ceftriaxone Sodium 50 ml @ 100 mls/hr DAILY@09 IV 03/30/24 09:00 Hydralazine HCl 10 mg Q6HP PRN IV 03/29/24 04:45 Diagnostic Test (Pha) 1 strip ACHS 03/29/24 07:00 03/29/24 11:42 1 STRIP Insulin Human Regular HS SC 03/29/24 22:00 Insulin Human Regular AC SC 03/29/24 07:00 03/29/24 11:53 9 UNITS Dextrose 50 ml UD PRN IV 03/29/24 04:45 Sodium Chloride 1,000 ml @ 60 mls/hr [id number] IV 03/29/24 04:45 03/29/24 05:34 60 MLS/HR Acetaminophen/ Hydrocodone Bitart 1 tab Q4HP PRN PO 03/29/24 04:45 03/29/24 11:56 1 TAB Ondansetron HCl 4 mg Q4HP PRN IV 03/29/24 04:45 Docusate Sodium 100 mg BIDPRN PRN PO 03/29/24 04:45 Acetaminophen 650 mg Q6HP PRN PO 03/29/24 04:45 Morphine Sulfate 2 mg Q4HPRN PRN IV 03/29/24 04:45 03/29/24 09:25 2 MG Nitroglycerin 0.4 mg Q5MINP PRN SL 03/29/24 06:00 Morphine Sulfate 2 mg Q30M PRN IV 03/29/24 06:00 Laboratory Results Laboratory Tests 03/29/24 03:00 03/29/24 03:50 Chemistry Test 03/29/24 03:00 03/29/24 03:50 Calcium Level 9.9 mg/dL (8.7-10.4) 9.8 mg/dL (8.7-10.4) Albumin 4.0 g/dL (3.2-4.8) Total Protein 8.0 g/dL (5.7-8.2) LFT Test 03/29/24 03:50 Alanine Aminotransferase (ALT) 49 U/L (7-40) H Alkaline Phosphatase 133 U/L (46-116) H Aspartate Amino Transferase (AST) 53 U/L (13-40) H Total Bilirubin 0.6 mg/dL (0.2-1.0) Urinalysis Test 03/29/24 03:50 Urine Color Yellow (Yellow) Urine Clarity Turbid (Clear) H Urine pH 6.0 (5.0-9.0) Urine Specific [place] 1.023 (1.001-1.035) Urine Protein Trace (Negative) H Urine Ketones Negative (Negative) Urine Blood Negative /uL (Negative) Urine Nitrite Negative (Negative) Urine Bilirubin Negative (Negative) Urine Urobilinogen Normal mg/dL (Negative) Urine Leukocyte Esterase 2+ /uL (Negative) Urine RBC 1 /hpf (0 - 4) Urine WBC 41 /hpf (0 - 5) Urine Squamous Epithelial Cells Few /hpf (<5) Urine Bacteria Few /hpf (None Seen) H Urine Mucus Few (None Seen) Urine Glucose 4+ mg/dL (Normal) H Labs and/or images reviewed: Labs reviewed by me, Image(s) reviewed by me Assessment/Plan Assessment/Plan Secondary to urinary tract infection: Blood cultures urine cultures Acute urinary tract infection: Rocephin 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 Oro advised conservative management pain medication and physical therapy Uncontrolled diabetes: Insulin sliding scale Diabetic neuropathy vasculopathy: Gabapentin Peripheral arterial disease and DVT ruled out during the previous visit Time spent 45 minutes Patient is full code Advanced care planning time 20 minutes Plan discussed with: Patient Date of Service: Mar 29, 2024 Billing Provider: GABRIELLA ANDUJAR MD Common Visit Codes: [id number] INP/OBS CARE(HIGH) Secondary Visit Codes: [id number] CARE PLAN 30 MINUTES GABRIELLA ANDUJAR MD Mar 29, 2024 12:53
[2024-03-29] MEDS: OXYCODONE W/ ACETAMINOPHEN 5/325MG TABLET PO SCH (18:32)
[2024-03-29 19:58] VITALS: PULSE 91; RESP 16; O2SAT 94
[2024-03-29 21:35] VITALS: BP 142/76; PULSE 54; RESP 22; TEMP 98.3; O2SAT 97
[2024-03-29 21:52] VITALS: PULSE 54; RESP 22; O2SAT 2
[2024-03-30] VITALS (8 sets, daily range): BP systolic 142–170; BP diastolic 70–92; PULSE 75–104; RESP 18–20; TEMP 97.8–98.7; O2SAT 93–99
[2024-03-30 07:04] LABS: Basophils # (auto) 0 10 ^3/uL (0-0.2); Basophils % (auto) 0.3 % (0.0-2.0); Eosinophils # (auto) 0.2 10 ^3/uL (0-0.8); Eosinophils % (auto) 2.3 % (0.0-7.0); Hematocrit 41.7 % (36.0-46.0); Hemoglobin 13.8 g/dL (12.2-16.2); Lymphocytes # (auto) 2.9 10 ^3/uL (0.4-5.4); Mean Corpuscular Hemoglobin 29.8 pg (28.0-32.0); Mean Corpuscular Hgb Conc. 33.2 g/dL (32.0-36.0); Mean Corpuscular Volume 89.9 fL (80.0-100.0); Monocytes # (auto) 0.7 10 ^3/uL (0-1.3); Monocytes % (auto) 8.8 % (0.0-12.0); Neutrophils # (auto) 4.3 10 ^3/uL (1.6-8.6); Neutrophils % (auto) 52.6 % (37.0-80.0); Nucleated Red Blood Cells % 0.1 %; Platelet Count (auto) 243 10^3/uL (140-450); Red Blood Cells 4.64 10^6/uL (4.0-5.20); Red Cell Distribution Width 14.1 % (11.8-14.3); White Blood Cell 8.2 10^3/uL (4.4-10.8)
[2024-03-30 07:14] LABS: Albumin 3.4 g/dL (3.2-4.8); Alkaline Phosphatase 112 U/L (46-116); Anion Gap 5 (5-15); BUN/Creatinine Ratio 17.6 (10.0-20.0); Bilirubin, Total 0.5 mg/dL (0.2-1.0); Blood Urea Nitrogen 12 mg/dL (9-23); Calcium 9.6 mg/dL (8.7-10.4); Carbon Dioxide 28 mmol/L (20-31); Chloride 105 mmol/L (98-107); Potassium 4.1 mmol/L (3.5-5.1); Sodium 138 mmol/L (136-145); Total Protein 6.8 g/dL (5.7-8.2)
[2024-03-30 07:16] LABS: Alanine Aminotransferase 42 U/L (7-40); Aspartate Aminotransferase 49 U/L (13-40); Glucose 146 mg/dL (74-106)
[2024-03-30] MEDS: cefTRIAXone 1GM/50ML D5W 50 ML IV SCH (08:59)
--- NOTE | 2024-03-30 09:34 | DVHPN2 ---
Reviewed: Care Plan, H&P, Labs, Medications, Previous Orders, Radiology Changes from previous H/P or p: No Changes Eyes: No Pain, No Vision change, No Conjunctivae inflammation, No Eyelid inflammation, No Other, No Redness ENT: No Ear pain, No Ear discharge, No Nose pain, No Nose discharge, No Nose congestion, No Mouth pain, No Mouth swelling, No Throat pain, No Throat swelling, No Other Cardiovascular: No Chest Pain, No Palpitations, No Orthopnea, No Paroxysmal Noc. Dyspnea, No Edema, No Lt Headedness, No Other Respiratory: No Cough, No Dry, No Shortness of breath, No SOB with excertion, No Wheezing, No Hemoptysis, No Pleuritic Pain, No Sputum, No Other Gastrointestinal: No Nausea, No Vomiting, No Abdominal Pain, No Diarrhea, No Constipation, No Melena, No Hematochezia, No Other Genitourinary: No Dysuria, No Frequency, No Incontinence, No Hematuria, No Retention, No Other Musculoskeletal: No other, No neck pain, No shoulder pain, No arm pain, No back pain, No hand pain, No leg pain, No foot pain Skin: No Rash, No Lesions, No Jaundice, No Bruising, No Other Objective Vitals Vital Signs Date Time Temp Pulse Resp B/P (MAP) Pulse Ox O2 Delivery O2 Flow Rate FiO2 03/30/24 08:28 97.8 88 20 160/92 (114) 95 97.8 03/29/24 21:52 Nasal Cannula* 2 28 Intake/Output Intake and Output 03/30/24 07:00 Intake Total 720 ml Balance 720 ml Intake IV Total 720 ml Medications Current Medications Medications Dose Ordered Sig/Ibrahima Route Start Time Stop Time Status Last Admin Dose Admin Ceftriaxone Sodium 50 ml @ 100 mls/hr DAILY@09 IV 03/30/24 09:00 03/30/24 08:59 100 MLS/HR Hydralazine HCl 10 mg Q6HP PRN IV 03/29/24 04:45 Diagnostic Test (Pha) 1 strip ACHS 03/29/24 07:00 03/30/24 06:14 1 STRIP Insulin Human Regular HS SC 03/29/24 22:00 03/29/24 22:00 6 UNITS Insulin Human Regular AC SC 03/29/24 07:00 03/30/24 06:17 2 UNITS Dextrose 50 ml UD PRN IV 03/29/24 04:45 Sodium Chloride 1,000 ml @ 60 mls/hr [id number] IV 03/29/24 04:45 03/29/24 21:25 60 MLS/HR Ondansetron HCl 4 mg Q4HP PRN IV 03/29/24 04:45 Docusate Sodium 100 mg BIDPRN PRN PO 03/29/24 04:45 Nitroglycerin 0.4 mg Q5MINP PRN SL 03/29/24 06:00 Morphine Sulfate 2 mg Q30M PRN IV 03/29/24 06:00 Oxycodone/ Acetaminophen 2 tab Q6HP PO 03/29/24 18:00 03/30/24 06:02 2 TAB Laboratory Results Laboratory Tests 03/30/24 05:49 Chemistry Test 03/30/24 05:49 Albumin 3.4 g/dL (3.2-4.8) Calcium Level 9.6 mg/dL (8.7-10.4) Total Protein 6.8 g/dL (5.7-8.2) LFT Test 03/30/24 05:49 Alanine Aminotransferase (ALT) 42 U/L (7-40) H Alkaline Phosphatase 112 U/L (46-116) Aspartate Amino Transferase (AST) 49 U/L (13-40) H Total Bilirubin 0.5 mg/dL (0.2-1.0) Urinalysis Test 03/29/24 03:50 Urine Color Yellow (Yellow) Urine Clarity Turbid (Clear) H Urine pH 6.0 (5.0-9.0) Urine Specific [place] 1.023 (1.001-1.035) Urine Protein Trace (Negative) H Urine Ketones Negative (Negative) Urine Blood Negative /uL (Negative) Urine Nitrite Negative (Negative) Urine Bilirubin Negative (Negative) Urine Urobilinogen Normal mg/dL (Negative) Urine Leukocyte Esterase 2+ /uL (Negative) Urine RBC 1 /hpf (0 - 4) Urine WBC 41 /hpf (0 - 5) Urine Squamous Epithelial Cells Few /hpf (<5) Urine Bacteria Few /hpf (None Seen) H Urine Mucus Few (None Seen) Urine Glucose 4+ mg/dL (Normal) H Microbiology Microbiology Date/Time Source Procedure Growth Status 03/29/24 03:50 Voided Urine Urine Culture - Preliminary Resulted Labs and/or images reviewed: Labs reviewed by me, Image(s) reviewed by me Assessment/Plan Assessment/Plan Sepsis Secondary to urinary tract infection: Blood cultures pending, urine cultures growing Gram-negative rods and Enterococcus species, add Zyvox, continue Rocephin until final culture results Acute urinary tract infection: Rocephin 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 Oro advised conservative management pain medication and physical therapy Uncontrolled diabetes: Insulin sliding scale Diabetic neuropathy vasculopathy: Gabapentin Peripheral arterial disease and DVT ruled out during the previous visit Time spent 45 minutes Patient is full code Advanced care planning time 20 minutes Plan discussed with: Patient My Orders Orders - GABRIELLA ANDUJAR MD Procedure Category Date Status Time Blood Culture CARMEN 03/29/24 In Process 12:54 Oxycodone W/ Acet PHA 03/29/24 In Process 5/325mg Tab (Percocet 18:00 Date of Service: Mar 30, 2024 Billing Provider: GABRIELLA ANDUJAR MD Common Visit Codes: [id number] INP/OBS CARE(HIGH) GABRIELLA ANDUJAR MD Mar 30, 2024 09:34
[2024-03-30] MEDS: OXYCODONE W/ ACETAMINOPHEN 5/325MG TABLET PO SCH (10:07)
[2024-03-30] MEDS: LINEZOLID 600MG/300ML 300 ML IV SCH (10:09)
[2024-03-31 01:00] VITALS: BP 177/81; PULSE 97; RESP 19; TEMP 98.1; O2SAT 97
[2024-03-31] MEDS: ZOLPIDEM TARTRATE 5 MG TAB PO PRN (01:21)
[2024-03-31 05:00] VITALS: BP 137/59; PULSE 87; RESP 19; TEMP 98.6; O2SAT 93
[2024-03-31 09:14] VITALS: BP 155/92; PULSE 90; RESP 17; TEMP 97.9; O2SAT 95
--- NOTE | 2024-03-31 09:47 | DVHPN2 ---
Reviewed: Care Plan, H&P, Labs, Medications, Previous Orders, Radiology Changes from previous H/P or p: No Changes Eyes: No Pain, No Vision change, No Conjunctivae inflammation, No Eyelid inflammation, No Other, No Redness ENT: No Ear pain, No Ear discharge, No Nose pain, No Nose discharge, No Nose congestion, No Mouth pain, No Mouth swelling, No Throat pain, No Throat swelling, No Other Cardiovascular: No Chest Pain, No Palpitations, No Orthopnea, No Paroxysmal Noc. Dyspnea, No Edema, No Lt Headedness, No Other Respiratory: No Cough, No Dry, No Shortness of breath, No SOB with excertion, No Wheezing, No Hemoptysis, No Pleuritic Pain, No Sputum, No Other Gastrointestinal: No Nausea, No Vomiting, No Abdominal Pain, No Diarrhea, No Constipation, No Melena, No Hematochezia, No Other Genitourinary: No Dysuria, No Frequency, No Incontinence, No Hematuria, No Retention, No Other Musculoskeletal: No other, No neck pain, No shoulder pain, No arm pain, No back pain, No hand pain, No leg pain, No foot pain Skin: No Rash, No Lesions, No Jaundice, No Bruising, No Other Objective Vitals Vital Signs Date Time Temp Pulse Resp B/P (MAP) Pulse Ox O2 Delivery O2 Flow Rate FiO2 03/31/24 09:14 97.9 90 17 155/92 (113) 95 97.9 03/30/24 20:00 Room Air* 0 21 Intake/Output Intake and Output 03/31/24 07:00 Intake Total 2820 ml Output Total 1575 ml Balance 1245 ml Intake Oral 1570 ml IV Total 1250 ml Output Urine Total 1575 ml # Voids 4 Medications Current Medications Medications Dose Ordered Sig/Ibrahima Route Start Time Stop Time Status Last Admin Dose Admin Ceftriaxone Sodium 50 ml @ 100 mls/hr DAILY@09 IV 03/30/24 09:00 03/30/24 08:59 100 MLS/HR Hydralazine HCl 10 mg Q6HP PRN IV 03/29/24 04:45 Diagnostic Test (Pha) 1 strip ACHS 03/29/24 07:00 03/31/24 06:24 1 STRIP Insulin Human Regular HS SC 03/29/24 22:00 03/30/24 22:28 6 UNITS Insulin Human Regular AC SC 03/29/24 07:00 03/31/24 06:18 3 UNITS Dextrose 50 ml UD PRN IV 03/29/24 04:45 Sodium Chloride 1,000 ml @ 60 mls/hr [id number] IV 03/29/24 04:45 03/30/24 14:05 60 MLS/HR Ondansetron HCl 4 mg Q4HP PRN IV 03/29/24 04:45 Docusate Sodium 100 mg BIDPRN PRN PO 03/29/24 04:45 Nitroglycerin 0.4 mg Q5MINP PRN SL 03/29/24 06:00 Morphine Sulfate 2 mg Q30M PRN IV 03/29/24 06:00 Linezolid 300 ml @ 150 mls/hr Q12HR IV 03/30/24 10:00 03/30/24 22:00 150 MLS/HR Oxycodone/ Acetaminophen 2 tab Q4HR PO 03/30/24 10:00 03/31/24 06:17 2 TAB Zolpidem Tartrate 10 mg HSPRN PRN PO 03/30/24 09:45 03/31/24 01:21 10 MG Laboratory Results Laboratory Tests 03/30/24 05:49 Urinalysis Test 03/29/24 03:50 Urine Color Yellow (Yellow) Urine Clarity Turbid (Clear) H Urine pH 6.0 (5.0-9.0) Urine Specific [place] 1.023 (1.001-1.035) Urine Protein Trace (Negative) H Urine Ketones Negative (Negative) Urine Blood Negative /uL (Negative) Urine Nitrite Negative (Negative) Urine Bilirubin Negative (Negative) Urine Urobilinogen Normal mg/dL (Negative) Urine Leukocyte Esterase 2+ /uL (Negative) Urine RBC 1 /hpf (0 - 4) Urine WBC 41 /hpf (0 - 5) Urine Squamous Epithelial Cells Few /hpf (<5) Urine Bacteria Few /hpf (None Seen) H Urine Mucus Few (None Seen) Urine Glucose 4+ mg/dL (Normal) H Microbiology Microbiology Date/Time Source Procedure Growth Status 03/29/24 13:27 Blood Blood Culture - Preliminary NO GROWTH AFTER 24 HOURS OF INCUBATION. 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 Oro advised conservative management pain medication and physical therapy Uncontrolled diabetes: Insulin sliding scale Diabetic neuropathy vasculopathy: Gabapentin Peripheral arterial disease and DVT ruled out during the previous visit Physical therapy ordered A1c ordered Time spent 45 minutes Patient is full code Advanced care planning time 20 minutes Plan discussed with: Patient Date of Service: Mar 31, 2024 Billing Provider: GABRIELLA ANDUJAR MD Common Visit Codes: [id number] INP/OBS CARE(HIGH) GABRIELLA ANDUJAR MD Mar 31, 2024 09:47
--- NOTE | 2024-03-31 11:39 | DVH ---
CLINICAL INFORMATION: 68 years old, Female; Pain and swelling. TECHNIQUE: Axial CT images of the right knee were obtained without IV contrast. Coronal and sagittal reformatted images were obtained, reviewed, and stored. All CT scans at this medical facility are performed using dose modulation techniques as appropriate to a performed exam including the following : Automated exposure control was utilized; adjustment of the MA and/or KV according to patient size; and use of iterative reconstruction technique. CTDIvol = 0.07, 0.07, 7.99, 8.03 mGy DLP = 464.63 mGy-cm COMPARISON: No prior imaging of the right knee was available for comparison at the time of dictation. 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 Beam hardening artifact from the pro sthesis limits evaluation of adjacent structures. No abnormal lucency visualized adjacent to the femo ral or tibial components of the prosthesis to suggest loosening. The prosthesis appears intact. There is patella baja with low-lying patella, and in Insall-Salvati ratio of 1.8. No evidence of acute fra cture. No significant soft tissue abnormality identified. IMPRESSION: 1. 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 2. Patella baja. 3. No evidence of acute fracture. No CT evidence for loosening of the femoral or tibial components of the prosthesis.
--- NOTE | 2024-03-31 11:45 | DVH ---
CLINICAL INFORMATION: 68 years old, Female; Pain and swelling. TECHNIQUE: Axial CT images of the left knee were obtained without IV contrast. Coronal and sagittal r eformatted images were obtained, reviewed, and stored. All CT scans at this medical facility are p erformed using dose modulation techniques as appropriate to a performed exam including the following: Automated exposure control was utilized; adjustment of the MA and/or KV according to patient size; a nd use of iterative reconstruction technique. CTDIvol = 0.07, 0.07, 7.99, 8.03 mGy DLP = 464.63 mGy-cm COMPARISON: None. FINDINGS: Severe tricompartmental arthritic changes with joint space narrowing, subchondral sclerosis , subchondral cystic change, and prominent marginal osteophytes, greatest in the medial and patellofe moral compartments. No evidence of acute fracture. Severe arthritic changes also noted at the proxima l tibiofibular joint. There is [id number] subcutaneous edema along the anterolateral aspect of the knee. No significant joint effusion. No other significant findings are seen. IMPRESSION: 1. Severe arthritic changes involving all 3 compartments of the right knee and severe arthritic martines es in the proximal tibiofibular joint. 2. Nonspecific lykp-bq-wcdaaeen subcutaneous edema along the anterolateral aspect of the knee, may be inflammatory or due to soft tissue contusion.
[2024-03-31 12:41] VITALS: BP 138/89; PULSE 67; RESP 17; TEMP 96.9; O2SAT 97
[2024-03-31 16:30] VITALS: BP 145/97; PULSE 85; RESP 17; TEMP 97.7; O2SAT 96
[2024-03-31 21:00] VITALS: BP 160/94; PULSE 93; RESP 18; TEMP 97.8; O2SAT 95
[2024-04-01] VITALS (8 sets, daily range): BP systolic 138–162; BP diastolic 72–103; PULSE 91–107; RESP 17–19; TEMP 97.9–98.6; O2SAT 94–97
--- NOTE | 2024-04-01 11:04 | DVHPN2 ---
Reviewed: Care Plan, H&P, Labs, Medications, Previous Orders, Radiology Changes from previous H/P or p: No Changes Eyes: No Pain, No Vision change, No Conjunctivae inflammation, No Eyelid inflammation, No Other, No Redness ENT: No Ear pain, No Ear discharge, No Nose pain, No Nose discharge, No Nose congestion, No Mouth pain, No Mouth swelling, No Throat pain, No Throat swelling, No Other Cardiovascular: No Chest Pain, No Palpitations, No Orthopnea, No Paroxysmal Noc. Dyspnea, No Edema, No Lt Headedness, No Other Respiratory: No Cough, No Dry, No Shortness of breath, No SOB with excertion, No Wheezing, No Hemoptysis, No Pleuritic Pain, No Sputum, No Other Gastrointestinal: No Nausea, No Vomiting, No Abdominal Pain, No Diarrhea, No Constipation, No Melena, No Hematochezia, No Other Genitourinary: No Dysuria, No Frequency, No Incontinence, No Hematuria, No Retention, No Other Musculoskeletal: No other, No neck pain, No shoulder pain, No arm pain, No back pain, No hand pain, No leg pain, No foot pain Skin: No Rash, No Lesions, No Jaundice, No Bruising, No Other Objective Vitals Vital Signs Date Time Temp Pulse Resp B/P (MAP) Pulse Ox O2 Delivery O2 Flow Rate FiO2 04/01/24 09:00 97.9 91 18 138/72 (94) 95 97.9 03/31/24 20:00 Room Air* 0 21 Intake/Output Intake and Output 04/01/24 07:00 Intake Total 1600 ml Balance 1600 ml Intake Oral 1250 ml IV Total 350 ml # Voids 22 Medications Current Medications Medications Dose Ordered Sig/Ibrahima Route Start Time Stop Time Status Last Admin Dose Admin Ceftriaxone Sodium 50 ml @ 100 mls/hr DAILY@09 IV 03/30/24 09:00 04/01/24 08:41 100 MLS/HR Hydralazine HCl 10 mg Q6HP PRN IV 03/29/24 04:45 Diagnostic Test (Pha) 1 strip ACHS 03/29/24 07:00 04/01/24 06:01 1 STRIP Insulin Human Regular HS SC 03/29/24 22:00 03/31/24 22:42 3 UNITS Insulin Human Regular AC SC 03/29/24 07:00 04/01/24 06:03 238 UNITS Dextrose 50 ml UD PRN IV 03/29/24 04:45 Ondansetron HCl 4 mg Q4HP PRN IV 03/29/24 04:45 Docusate Sodium 100 mg BIDPRN PRN PO 03/29/24 04:45 Nitroglycerin 0.4 mg Q5MINP PRN SL 03/29/24 06:00 Morphine Sulfate 2 mg Q30M PRN IV 03/29/24 06:00 Linezolid 300 ml @ 150 mls/hr Q12HR IV 03/30/24 10:00 03/31/24 22:29 150 MLS/HR Oxycodone/ Acetaminophen 2 tab Q4HR PO 03/30/24 10:00 04/01/24 07:33 2 TAB Zolpidem Tartrate 10 mg HSPRN PRN PO 03/30/24 09:45 03/31/24 22:29 10 MG Laboratory Results Laboratory Tests 03/30/24 05:49 Urinalysis Test 03/29/24 03:50 Urine Color Yellow (Yellow) Urine Clarity Turbid (Clear) H Urine pH 6.0 (5.0-9.0) Urine Specific [place] 1.023 (1.001-1.035) Urine Protein Trace (Negative) H Urine Ketones Negative (Negative) Urine Blood Negative /uL (Negative) Urine Nitrite Negative (Negative) Urine Bilirubin Negative (Negative) Urine Urobilinogen Normal mg/dL (Negative) Urine Leukocyte Esterase 2+ /uL (Negative) Urine RBC 1 /hpf (0 - 4) Urine WBC 41 /hpf (0 - 5) Urine Squamous Epithelial Cells Few /hpf (<5) Urine Bacteria Few /hpf (None Seen) H Urine Mucus Few (None Seen) Urine Glucose 4+ mg/dL (Normal) H Microbiology Microbiology Date/Time Source Procedure Growth Status 03/29/24 13:27 Blood Blood Culture - Preliminary NO GROWTH AFTER 48 HOURS OF INCUBATION. 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 Oro advised conservative management pain medication and physical therapy Uncontrolled diabetes: Insulin sliding scale Diabetic neuropathy vasculopathy: Gabapentin Peripheral arterial disease and DVT ruled out during the previous visit Physical therapy ordered A1c 9.2 Time spent 45 minutes Physical therapy ordered Brianna test ordered Patient is full code Advanced care planning time 20 minutes Plan discussed with: Patient My Orders Orders - GABRIELLA ANDUJAR MD Procedure Category Date Status Time Levofloxacin Levaquin PHA 04/02/24 Transmitted 10:00 Levofloxacin Levaquin PHA 04/01/24 Transmitted 11:15 Date of Service: Apr 01, 2024 Billing Provider: GABRIELLA ANDUJAR MD Common Visit Codes: [id number] INP/OBS CARE(HIGH) GABRIELLA ANDUJAR MD Apr 01, 2024 11:04
[2024-04-01] MEDS ORDERED: levoFLOXacin 500MG 100 ML IV ONE (11:15)
[2024-04-01] MEDS: levoFLOXacin 250MG 100 ML IV ONE (13:38)
[2024-04-01] MEDS: MORPHINE SULFATE INJ 2 MG/ml SYRG IV PRN (14:03)
[2024-04-01] MEDS: levoFLOXacin 250MG 50 ML IV SCH (16:23)
[2024-04-01] MEDS: HYDROcodone-ACET 5/325MG TAB PO PRN (21:26)
[2024-04-02] VITALS (7 sets, daily range): BP systolic 138–169; BP diastolic 65–99; PULSE 97–111; RESP 19–20; TEMP 98.2–98.5; O2SAT 93–97
[2024-04-02] MEDS: levoFLOXacin 250MG 50 ML IV SCH (10:00)
--- NOTE | 2024-04-02 11:03 | DVHPN2 ---
Reviewed: Care Plan, H&P, Labs, Medications, Previous Orders, Radiology Changes from previous H/P or p: No Changes Eyes: No Pain, No Vision change, No Conjunctivae inflammation, No Eyelid inflammation, No Other, No Redness ENT: No Ear pain, No Ear discharge, No Nose pain, No Nose discharge, No Nose congestion, No Mouth pain, No Mouth swelling, No Throat pain, No Throat swelling, No Other Cardiovascular: No Chest Pain, No Palpitations, No Orthopnea, No Paroxysmal Noc. Dyspnea, No Edema, No Lt Headedness, No Other Respiratory: No Cough, No Dry, No Shortness of breath, No SOB with excertion, No Wheezing, No Hemoptysis, No Pleuritic Pain, No Sputum, No Other Gastrointestinal: No Nausea, No Vomiting, No Abdominal Pain, No Diarrhea, No Constipation, No Melena, No Hematochezia, No Other Genitourinary: No Dysuria, No Frequency, No Incontinence, No Hematuria, No Retention, No Other Musculoskeletal: No other, No neck pain, No shoulder pain, No arm pain, No back pain, No hand pain, No leg pain, No foot pain Skin: No Rash, No Lesions, No Jaundice, No Bruising, No Other Objective Vitals Vital Signs Date Time Temp Pulse Resp B/P (MAP) Pulse Ox O2 Delivery O2 Flow Rate FiO2 04/02/24 05:00 98.5 111 19 142/78 (99) 93 98.5 04/01/24 20:00 Room Air* 0 21 Intake/Output Intake and Output 04/02/24 07:00 Intake Total 1194 ml Balance 1194 ml Intake Oral 944 ml IV Total 250 ml # Voids 6 # Bowel Movements 2 Medications Current Medications Medications Dose Ordered Sig/Ibrahima Route Start Time Stop Time Status Last Admin Dose Admin Hydralazine HCl 10 mg Q6HP PRN IV 03/29/24 04:45 Diagnostic Test (Pha) 1 strip ACHS 03/29/24 07:00 04/01/24 21:27 1 STRIP Insulin Human Regular HS SC 03/29/24 22:00 04/01/24 21:31 4 UNITS Insulin Human Regular AC SC 03/29/24 07:00 04/01/24 17:58 2 UNITS Dextrose 50 ml UD PRN IV 03/29/24 04:45 Ondansetron HCl 4 mg Q4HP PRN IV 03/29/24 04:45 Docusate Sodium 100 mg BIDPRN PRN PO 03/29/24 04:45 Nitroglycerin 0.4 mg Q5MINP PRN SL 03/29/24 06:00 Morphine Sulfate 2 mg Q30M PRN IV 03/29/24 06:00 04/01/24 14:03 2 MG Zolpidem Tartrate 10 mg HSPRN PRN PO 03/30/24 09:45 04/01/24 21:26 10 MG Acetaminophen/ Hydrocodone Bitart 1 tab Q8HPRN PRN PO 04/01/24 21:00 04/01/24 21:26 1 TAB Levofloxacin 50 ml @ 50 mls/hr DAILY@1000,1100 IV 04/02/24 10:00 Laboratory Results Laboratory Tests 03/30/24 05:49 Urinalysis Test 03/29/24 03:50 Urine Color Yellow (Yellow) Urine Clarity Turbid (Clear) H Urine pH 6.0 (5.0-9.0) Urine Specific [place] 1.023 (1.001-1.035) Urine Protein Trace (Negative) H Urine Ketones Negative (Negative) Urine Blood Negative /uL (Negative) Urine Nitrite Negative (Negative) Urine Bilirubin Negative (Negative) Urine Urobilinogen Normal mg/dL (Negative) Urine Leukocyte Esterase 2+ /uL (Negative) Urine RBC 1 /hpf (0 - 4) Urine WBC 41 /hpf (0 - 5) Urine Squamous Epithelial Cells Few /hpf (<5) Urine Bacteria Few /hpf (None Seen) H Urine Mucus Few (None Seen) Urine Glucose 4+ mg/dL (Normal) H Microbiology Microbiology Date/Time Source Procedure Growth Status 03/29/24 13:27 Blood Blood Culture - Preliminary NO GROWTH AFTER 72 HOURS OF INCUBATION. 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 Oro advised conservative management pain medication and physical therapy Uncontrolled diabetes: Insulin sliding scale Diabetic neuropathy vasculopathy: Gabapentin Peripheral arterial disease and DVT ruled out during the previous visit Physical therapy ordered A1c 9.2 Time spent 45 minutes Physical therapy ordered Brianna test ordered Patient is full code Advanced care planning time 20 minutes Discussed with the patient's daughter Manasa who lives in [place] [phone] and she is in agreement for the patient to be discharged to nursing home facility for IV antibiotics for two weeks for sepsis for UTI Plan discussed with: Patient My Orders Orders - GABRIELLA ANDUJAR MD Procedure Category Date Status Time Covid19 Antigen Anastasiya LAB 04/01/24 Logged Levofloxacin 250mg PHA 04/02/24 In Process (Levaquin 250mg) 10:00 Date of Service: Apr 02, 2024 Billing Provider: GABRIELLA ANDUJAR MD Common Visit Codes: [id number] INP/OBS CARE(HIGH) GABRIELLA ANDUJAR MD Apr 02, 2024 11:03
--- NOTE | 2024-04-02 13:22 | DVHDS2 ---
Discharge Summary Date of Admission Mar 29, 2024 at 05:46 Date of Discharge: Apr 02, 2024 Admitting Diagnosis Generalized weakness and altered mental status Wounds: None Labs/Diagnostic Data: Laboratory Results Test 04/02/24 11:14 03/31/24 10:26 03/30/24 05:49 03/29/24 06:45 POC Glucose 311 mg/dl (70-106) Hemoglobin A1c 9.2 % A1C (<5.7) White Blood Count 8.2 10^3/uL (4.4-10.8) Red Blood Count 4.64 10^6/uL (4.0-5.20) Hemoglobin 13.8 g/dL (12.2-16.2) Hematocrit 41.7 % (36.0-46.0) Mean Corpuscular Volume 89.9 fL (80.0-100.0) Mean Corpuscular Hemoglobin 29.8 pg (28.0-32.0) Mean Corpuscular Hemoglobin Concent 33.2 g/dL (32.0-36.0) Red Cell Distribution Width 14.1 % (11.8-14.3) Platelet Count 243 10^3/uL (140-450) Mean Platelet Volume 8.1 fL (6.9-10.8) Neutrophils (%) (Auto) 52.6 % (37.0-80.0) Lymphocytes (%) (Auto) 36.0 % (10.0-50.0) Monocytes (%) (Auto) 8.8 % (0.0-12.0) Eosinophils (%) (Auto) 2.3 % (0.0-7.0) Basophils (%) (Auto) 0.3 % (0.0-2.0) Neutrophils # (Auto) 4.3 10 ^3/uL (1.6-8.6) Lymphocytes # (Auto) 2.9 10 ^3/uL (0.4-5.4) Monocytes # (Auto) 0.7 10 ^3/uL (0-1.3) Eosinophils # (Auto) 0.2 10 ^3/uL (0-0.8) Basophils # (Auto) 0 10 ^3/uL (0-0.2) Nucleated Red Blood Cells 0.1 % Sodium Level 138 mmol/L (136-145) Potassium Level 4.1 mmol/L (3.5-5.1) Chloride Level 105 mmol/L (98-107) Carbon Dioxide Level 28 mmol/L (20-31) Anion Gap 5 (5-15) Blood Urea Nitrogen 12 mg/dL (9-23) Creatinine 0.68 mg/dL (0.550-1.02) Glomerular Filtration Rate Calc 96 mL/min (>90) BUN/Creatinine Ratio 17.6 (10.0-20.0) Serum Glucose 146 mg/dL (74-106) Calcium Level 9.6 mg/dL (8.7-10.4) Total Bilirubin 0.5 mg/dL (0.2-1.0) Aspartate Amino Transferase (AST) 49 U/L (13-40) Alanine Aminotransferase (ALT) 42 U/L (7-40) Alkaline Phosphatase 112 U/L (46-116) Total Protein 6.8 g/dL (5.7-8.2) Albumin 3.4 g/dL (3.2-4.8) Troponin I High Sensitivity 3 ng/L (</=34) Test 03/29/24 03:50 Urine Color Yellow (Yellow) Urine Clarity Turbid (Clear) Urine pH 6.0 (5.0-9.0) Urine Specific [place] 1.023 (1.001-1.035) Urine Protein Trace (Negative) Urine Ketones Negative (Negative) Urine Blood Negative /uL (Negative) Urine Nitrite Negative (Negative) Urine Bilirubin Negative (Negative) Urine Urobilinogen Normal mg/dL (Negative) Urine Leukocyte Esterase 2+ /uL (Negative) Urine RBC 1 /hpf (0 - 4) Urine WBC 41 /hpf (0 - 5) Urine Squamous Epithelial Cells Few /hpf (<5) Urine Bacteria Few /hpf (None Seen) Urine Mucus Few (None Seen) Urine Glucose 4+ mg/dL (Normal) Other Laboratory Tests 03/30/24 05:49 Brief Hx & Hospital Course: 68-year-old female with a history of uncontrolled diabetes peripheral arterial disease ruled out last visit history of diabetic neuropathy severe DJD of the LS spine and pain medication came in for altered mental status and confusion found to have sepsis secondary to urinary tract infection blood cultures negative urine cultures grew E: E faecalis placed on Rocephin and changed to Levaquin. Discussed with the patient's daughter who advised penitentiary placement for rehab and for IV antibiotics but the patient does not want to go to penitentiary and wants to be discharged home. 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 Oro advised conservative management pain medication and physical therapy Uncontrolled diabetes: Insulin sliding scale Diabetic neuropathy vasculopathy: Gabapentin Peripheral arterial disease and DVT ruled out during the previous visit Physical therapy ordered A1c 9.2 Discharge Disposition: Home with Health Services Discharge Instruct/Medications Diet: Consistent carbohydrate Activity: Light activity Follow Up/Referral: Follow up with the primary Dr Continue all home medications Medications: Levaquin 500 mg IV daily for two weeks for sepsis and UTI 35 (Time taken for discharge summary 35 minutes) Discharge Statement: "Patient was advised to return to the ER or call 911 if any headaches, dizziness, shortness of breath, chest pain, abdominal pain, bleeding, fevers, or worsening of medical condition. Patient was counseled about treatment plan, medications, possible side effects, patientverbalized understanding. All questions were answered to the best of my ability. 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 Oro advised conservative management pain medication and physical therapy Uncontrolled diabetes: Insulin sliding scale Diabetic neuropathy vasculopathy: Gabapentin Peripheral arterial disease and DVT ruled out during the previous visit Physical therapy ordered A1c 9.2 Date of Service: Apr 02, 2024 Billing Provider: GABRIELLA ANDUJAR MD Common Visit Codes: [id number] DISCH DAY >30min GABRIELLA ANDUJAR MD Apr 02, 2024 13:21
[2024-04-03 01:00] VITALS: BP 139/84; PULSE 118; RESP 17; TEMP 98.5; O2SAT 94
[2024-04-03] MEDS: HYDROcodone-ACET 5/325MG TAB PO PRN (03:19)
[2024-04-03 05:00] VITALS: BP 146/85; PULSE 105; RESP 19; TEMP 98.7; O2SAT 96
[2024-04-03 08:00] VITALS: BP 123/81; PULSE 100; PULSE 98; RESP 17; RESP 18; TEMP 97.4; O2SAT 94
--- NOTE | 2024-04-03 10:15 | DVHPN2 ---
Reviewed: Care Plan, H&P, Labs, Medications, Previous Orders, Radiology Changes from previous H/P or p: No Changes Eyes: No Pain, No Vision change, No Conjunctivae inflammation, No Eyelid inflammation, No Other, No Redness ENT: No Ear pain, No Ear discharge, No Nose pain, No Nose discharge, No Nose congestion, No Mouth pain, No Mouth swelling, No Throat pain, No Throat swelling, No Other Cardiovascular: No Chest Pain, No Palpitations, No Orthopnea, No Paroxysmal Noc. Dyspnea, No Edema, No Lt Headedness, No Other Respiratory: No Cough, No Dry, No Shortness of breath, No SOB with excertion, No Wheezing, No Hemoptysis, No Pleuritic Pain, No Sputum, No Other Gastrointestinal: No Nausea, No Vomiting, No Abdominal Pain, No Diarrhea, No Constipation, No Melena, No Hematochezia, No Other Genitourinary: No Dysuria, No Frequency, No Incontinence, No Hematuria, No Retention, No Other Musculoskeletal: No other, No neck pain, No shoulder pain, No arm pain, No back pain, No hand pain, No leg pain, No foot pain Skin: No Rash, No Lesions, No Jaundice, No Bruising, No Other Objective Vitals Vital Signs Date Time Temp Pulse Resp B/P (MAP) Pulse Ox O2 Delivery O2 Flow Rate FiO2 04/03/24 08:00 98 18 94 Room Air* 0 21 04/03/24 08:00 97.4 123/81 (95) 97.4 Intake/Output Intake and Output 04/03/24 07:00 Intake Total 1272 ml Output Total 400 ml Balance 872 ml Intake Oral 1272 ml Output Urine Total 400 ml # Voids 5 # Bowel Movements 1 Medications Current Medications Medications Dose Ordered Sig/Ibrahima Route Start Time Stop Time Status Last Admin Dose Admin Hydralazine HCl 10 mg Q6HP PRN IV 03/29/24 04:45 Diagnostic Test (Pha) 1 strip ACHS 03/29/24 07:00 04/03/24 07:49 1 STRIP Insulin Human Regular HS SC 03/29/24 22:00 04/02/24 22:00 3 UNITS Insulin Human Regular AC SC 03/29/24 07:00 04/03/24 07:59 12 UNITS Dextrose 50 ml UD PRN IV 03/29/24 04:45 Ondansetron HCl 4 mg Q4HP PRN IV 03/29/24 04:45 Docusate Sodium 100 mg BIDPRN PRN PO 03/29/24 04:45 Nitroglycerin 0.4 mg Q5MINP PRN SL 03/29/24 06:00 Morphine Sulfate 2 mg Q30M PRN IV 03/29/24 06:00 04/01/24 14:03 2 MG Zolpidem Tartrate 10 mg HSPRN PRN PO 03/30/24 09:45 04/02/24 23:39 10 MG Levofloxacin 50 ml @ 50 mls/hr DAILY@1000,1100 IV 04/02/24 10:00 Acetaminophen/ Hydrocodone Bitart 1 tab Q4HPRN PRN PO 04/03/24 03:15 04/03/24 03:19 1 TAB Laboratory Results Laboratory Tests 03/30/24 05:49 Urinalysis Test 03/29/24 03:50 Urine Color Yellow (Yellow) Urine Clarity Turbid (Clear) H Urine pH 6.0 (5.0-9.0) Urine Specific [place] 1.023 (1.001-1.035) Urine Protein Trace (Negative) H Urine Ketones Negative (Negative) Urine Blood Negative /uL (Negative) Urine Nitrite Negative (Negative) Urine Bilirubin Negative (Negative) Urine Urobilinogen Normal mg/dL (Negative) Urine Leukocyte Esterase 2+ /uL (Negative) Urine RBC 1 /hpf (0 - 4) Urine WBC 41 /hpf (0 - 5) Urine Squamous Epithelial Cells Few /hpf (<5) Urine Bacteria Few /hpf (None Seen) H Urine Mucus Few (None Seen) Urine Glucose 4+ mg/dL (Normal) H Microbiology Microbiology Date/Time Source Procedure Growth Status 03/29/24 13:27 Blood Blood Culture - Preliminary NO GROWTH AFTER 72 HOURS OF INCUBATION. 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 Oro advised conservative management pain medication and physical therapy Uncontrolled diabetes: Insulin sliding scale Diabetic neuropathy vasculopathy: Gabapentin Peripheral arterial disease and DVT ruled out during the previous visit Physical therapy ordered A1c 9.2 Time spent 45 minutes Physical therapy ordered Brianna test ordered Patient is full code Advanced care planning time 20 minutes Patient discharged home on home health for two weeks of IV antibiotics for sepsis and UTI on 04/02/2024 Social service working on arranging home health Plan discussed with: Patient My Orders Orders - GABRIELLA ANDUJAR MD Procedure Category Date Status Time Levofloxacin 250mg PHA 04/02/24 In Process (Levaquin 250mg) 10:00 Insert Midline ORDERS 04/02/24 Transmitted 11:54 * Consumer Advocate CONS 04/02/24 Transmitted Consult Refer To Home Health [facility] 04/02/24 In Process 13:17 Discharge DISCHARGE 04/02/24 Transmitted 13:18 Date of Service: Apr 03, 2024 Billing Provider: GABRIELLA ANDUJAR MD Common Visit Codes: [id number] INP/OBS CARE(HIGH) GABRIELLA ANDUJAR MD Apr 03, 2024 10:15
[2024-04-03 12:00] VITALS: BP 131/76; PULSE 99; RESP 18; TEMP 97.8; O2SAT 95
[2024-04-03] MEDS: ONDANSETRON HCL 4 MG/2 ML VIAL IV PRN (12:51)
[2024-04-03 14:29] VITALS: TEMP 36.6
[2024-04-03 17:00] VITALS: BP 141/80; PULSE 101; RESP 17; TEMP 98.6; O2SAT 94
== END 2024-04-03 20:38 | disposition home health service (06) | DRG 689 ==
LOC: EDBD 02:34 → ER 02:34 → OVERFLOW 05:46 → EAST 21:35
PROVIDERS: ADMIT Nurse Practitioner Family; ATTEND Family Medicine
PROC: 05HF33Z Insertion of Infusion Device into Left Cephalic Vein, Percutaneous Approach (ICD-10-PCS; principal; 2024-04-02)
PROC: B54NZZA Ultrasonography of Left Upper Extremity Veins, Guidance (ICD-10-PCS; 2024-04-02)
DX: N39.0 Urinary tract infection, site not specified (principal); G93.41 Metabolic encephalopathy; E11.40 Type 2 diabetes mellitus with diabetic neuropathy, unspecified; E11.65 Type 2 diabetes mellitus with hyperglycemia; M47.817 Spondylosis without myelopathy or radiculopathy, lumbosacral region; I10 Essential (primary) hypertension; B95.2 Enterococcus as the cause of diseases classified elsewhere
CPT/HCPCS: 36415; 70450; 71045; 73700; 80048; 80053; 81001; 82962; 83036; 84484; 85025; 87040; 87086; 87088; 87186; 97110; 97163; 97530; G0378; J1815; J2405

== ENCOUNTER 2024-08-09 00:50 | Inpatient (IN) | payer MEDICARE, MEDICAID ==
[~2024-08-09] VITALS: Ht 177.8 cm; Wt 110.7 kg
--- NOTE | 2024-08-09 01:07 | ED.PDOC ---
History of Present Illness HPI Comments 69-year-old female came to emergency room via EMS for Fall injury. Patient found inside her bedroom lying on the floor by family members. Patient unable to remember how she fell/or way she has had the ground. Noted hematoma on her forehead. Upon arrival paramedics, patient noted to be hypotensive of 90/50 mmHg, with a blood sugar of 218 Chief Complaint: Fall Injury Time Seen by MD: 01:07 Reviewed Notes: Manager Marketing Communications Notes Allergies: Coded Allergies: NO KNOWN ALLERGIES (Unverified , 01/05/24) Home Meds Active Scripts Hydrocodone-Acetaminophen (Hydrocodone Bitartrate/AC 5-325 mg) 1 Tab Tab, 1 TAB PO QID PRN, #30 TAB Prov:GABRIELLA ANDUJAR MD 01/08/24 Information Source: Patient, Emergency Med Personnel Mode of Arrival: EMS Severity: Moderate Timing: Minutes Duration: Since onset Past Medical History PAST MEDICAL HISTORY: DM Surgical History: Denies all surgeries 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 MINER OPERATOR History: No Pertinent BORE MINER OPERATOR History Family History Family History: Reviewed,noncontributory to illness Social History Smoker: Non-Smoker Alcohol: Denies ETOH Use Drugs: Denies Drug Use Lives In: Home Constitutional: reports: weakness; denies: chills, diaphoresis, fatigue, fever, malaise, sweats, others EENTM: denies: blurred vision, double vision, ear bleeding, ear discharge, ear drainage, ear pain, ear ringing, eye pain, eye redness, hearing loss, mouth pain, mouth swelling, nasal discharge, nose bleeding, nose congestion, nose pain, photophobia, tearing, throat pain, throat swelling, voice changes, others Respiratory: denies: cough, hemoptysis, orthopnea, SOB at rest, shortness of breath, SOB with excertion, stridor, wheezing, others Cardiovascular: denies: chest pain, dizzy spells, diaphoresis, Dyspnea on exertion, edema, irregular heart beat, left arm pain, lightheadedness, palpitations, PND, syncope, others Gastrointestinal: denies: abdomen distended, abdominal pain, blood streaked bowels, constipated, diarrhea, dysphagia, difficulty swallowing, hematemesis, melena, nausea, poor appetite, poor fluid intake, rectal bleeding, rectal pain, vomiting, others Genitourinary: denies: abnormal vagina bleeding, burning, dyspareunia, dysuria, flank pain, frequency, hematuria, incontinence, pain, , vagina discharge, urgency, others Neurological: reports: headache; denies: dizziness, fainting, left sided numbness, left sided weakness, numbness, paresthesia, pre-existing deficit, right sided numbness, right sided weakness, seizure, speech problems, tingling, tremors, weakness, others Musculoskeletal: denies: back pain, gout, joint pain, joint swelling, muscle pain, muscle stiffness, neck pain, others Integumetry: denies: bruises, change in color, change in hair/nails, dryness, laceration, lesions, lumps, rash, wounds, others Allergic/Immunocompromised: denies: Difficulty Healing, Frequent Infections, Hives, Itching, others Hematologic/Lymphatic: denies: anemia, blood clots, easy bleeding, easy bru ising, swollen glands, others Endocrine: denies: excessive hunger, excessive sweating, excessive thirst, e xcessive urination, flushing, intolerance to cold, intolerance to heat, unexplained weight gain, unexplained weight loss, others Psychiatric: denies: anxiety, bipolar disorder, depression, hopeless, panic disorder, schizophrenia, sleepless, suicidal, others Physical Exam General Appearance: No Apparent Distress, Normal HEENT: Normal ENT Inspection, Pharynx Normal, TMs Normal Neck: Full Range of Motion, Non-Tender, Normal, Normal Inspection Respiratory: Chest Non-Tender, Lungs Clear, No Accessory Muscle Use, No Re spiratory Distress, Normal Breath Sounds Cardiovascular: No Edema, No JVD, No Murmur, No Gallop, Normal Peripheral Pulses, Regular Rate/Rhythm Breast Exam: Deferred Gastrointestinal: No Organomegaly, Non Tender, No Pulsatile Mass, Normal Bowel Sounds, Soft Genitalia: Deferred Pelvic: Deferred Rectal: Deferred Extremities: No calf tenderness, Normal capillary refill, Normal inspection, Normal range of motion, Non-tender, No pedal edema Musculoskeletal : Apperance: Normal Neurologic: Alert, stand grinder II-XII nml as Tested, No Motor Deficits, Normal Affect, Normal Mood, No Sensory Deficits Cerebellar Function: Normal Reflexes: Normal Skin: Dry, Normal Color, Warm Lymphatic: No Adenopathy Was a procedure done? Was a procedure done?: No Differential Dx Considerations may include: Anemia, electrolyte imbalance, hypotension, head injury, hematoma X-Ray, Labs, Meds, VS Vital Signs Date Time Temp Pulse Resp B/P (MAP) Pulse Ox O2 Delivery O2 Flow Rate FiO2 08/09/24 01:26 59 19 95 Room Air* 0 21 08/09/24 01:26 97.7 59 19 86/44 (58) 95 97.7 08/09/24 01:00 59 08/09/24 00:50 97.6 62 18 104/56 (72) 95 97.6 Lab Test 08/09/24 02:07 08/09/24 01:26 08/09/24 01:08 Range/Units White Blood Count 11.9 H 4.4-10.8 10^3/uL Red Blood Count 3.93 L 4.0-5.20 10^6/uL Hemoglobin 10.8 L 12.2-16.2 g/dL Hematocrit 33.6 L 36.0-46.0 % Mean Corpuscular Volume 85.5 80.0-100.0 fL Mean Corpuscular Hemoglobin 27.6 L 28.0-32.0 pg Mean Corpuscular Hemoglobin Concent 32.3 32.0-36.0 g/dL Red Cell Distribution Width 16.4 H 11.8-14.3 % Platelet Count 302 140-450 10^3/uL Mean Platelet Volume 7.4 6.9-10.8 fL Neutrophils (%) (Auto) 63.4 37.0-80.0 % Lymphocytes (%) (Auto) 27.4 10.0-50.0 % Monocytes (%) (Auto) 8.3 0.0-12.0 % Eosinophils (%) (Auto) 0.5 0.0-7.0 % Basophils (%) (Auto) 0.4 0.0-2.0 % Neutrophils # (Auto) 7.5 1.6-8.6 10 ^3/uL Lymphocytes # (Auto) 3.3 0.4-5.4 10 ^3/uL Monocytes # (Auto) 1.0 0-1.3 10 ^3/uL Eosinophils # (Auto) 0.1 0-0.8 10 ^3/uL Basophils # (Auto) 0.1 0-0.2 10 ^3/uL Nucleated Red Blood Cells 0.1 % Troponin I High Sensitivity Pending < 3 L </=34 ng/L POC Glucose 210 H 70-106 mg/dl Sodium Level 139 136-145 mmol/L Potassium Level 3.4 L 3.5-5.1 mmol/L Chloride Level 102 98-107 mmol/L Carbon Dioxide Level 29 20-31 mmol/L Anion Gap 8 5-15 Blood Urea Nitrogen 19 9-23 mg/dL Creatinine 0.87 0.550-1.02 mg/dL Glomerular Filtration Rate Calc 73 >90 mL/min BUN/Creatinine Ratio 21.8 H 10.0-20.0 Serum Glucose 217 H 74-106 mg/dL Calcium Level 9.3 8.7-10.4 mg/dL Current Medications Medications (Trade) Dose Ordered Sig/Ibrahima Route Start Time Stop Time Status Last Admin Sodium Chloride 1,000 ml @ 1,000 mls/hr Q1H ONCE IV 08/09/24 01:30 08/09/24 02:29 DC 08/09/24 01:28 Time of 1ST Reevaluation: 00:57 Reevaluation 1ST: Unchanged Patient Education/Counseling: Diagnosis, Treatment Family Education/Counseling: No Family Present Departure 1 Departure Time of Disposition: 02:32 (Patient presented with syncope today and should be admitted. Data: 1. I ordered and reviewed the result of at least 3 labs including a CBC, BMP, and troponin. 2. I independently interpreted the following tests: EKG which shows a sinus arrhythmia and a chest x-ray which shows benign chest and a CT head which shows benign brain.Risk:This patient has a high risk of morbidity due to further diagnostic testing or treatment and may suffer from an acute cardiac, neurologic, or infectious disorder. Rationale: Patient should be admitted to the hospital for further management.) Impression: Primary Impression: Syncope and collapse Disposition: ADMITTED INPATIENT Admit to: Med Surg Condition: Serious Critical Care Note Critical Care Time?: No Stability Stability form required: No Heart Score Heart Score: Heart Score Response (Comments) Value History N/A 0 EKG N/A 0 Age N/A 0 Risk Factors N/A 0 Troponin N/A 0 Total 0 I personally scribed for HUMERA MCKINNON MD ([email or web address]) on 08/09/24 at 01:07. Electronically submitted by Olayinka Tobias ([email or web address]). HUMERA MCKINNON MD Aug 09, 2024 01:07
[2024-08-09 01:23] LABS: Chloride 102 mmol/L (98-107); Sodium 139 mmol/L (136-145)
[2024-08-09 01:24] LABS: Anion Gap 8 (5-15); Carbon Dioxide 29 mmol/L (20-31)
[2024-08-09 01:25] LABS: Calcium 9.3 mg/dL (8.7-10.4)
[2024-08-09 01:26] VITALS: PULSE 59; RESP 19; O2SAT 95
[2024-08-09] MEDS: SODIUM CHLORIDE 0.9% 1,000 ML IV ONE (01:28)
[2024-08-09 01:29] LABS: BUN/Creatinine Ratio 21.8 (10.0-20.0); Blood Urea Nitrogen 19 mg/dL (9-23)
[2024-08-09 01:32] LABS: Glucose 217 mg/dL (74-106); Potassium 3.4 mmol/L (3.5-5.1)
--- NOTE | 2024-08-09 01:50 | DVH ---
EXAM: CT HEAD WITHOUT CONTRAST INDICATION: syncope TECHNIQUE: CT of the head without intravenous contrast. Radiation Dose : 1. Head: CT Dose: CTDI volume is 65 mGy. Dose-length product is 1410 mGy*cm The dose indicators for CT are the volume Computed Tomography (CT) Dose Index (CTDIvol) and the Dose Length Product (DLP), and are measured in units of mGy and mGy-cm, respectively. These indicators are not patient dose, but values generated from the CT scanner acquisition factors. The report includes radiation exposure data for exposures received during this examination. COMPARISON: CT HEAD WITHOUT CONTRAST on DOS: 03/29/24 FINDINGS: There is no evidence of acute intracranial hemorrhage, extra-axial collection, mass effect, midline s hift, herniation or hydrocephalus. The ventricles, sulci and cisterns are age appropriate. The purvis-white differentiation is intact. Patchy periventricular and subcortical white matter hypoattenuation is nonspecific but may be related to small vessel ischemic disease. The visualized paranasal sinuses and mastoid air cells are clear. The surrounding soft tissues and osseous structures are unremarkable. IMPRESSION: 1. No acute intracranial abnormality. Radiation optimization: All CT scans at this facility use at least one of these dose optimization clif hniques: automated exposure control mA and/or kV adjustment per patient size (includes targeted exam s where dose is matched to clinical indication) or iterative reconstruction.
--- NOTE | 2024-08-09 01:53 | DVH ---
CHEST RADIOGRAPH Indication: syncope Technique: Single frontal view of the chest was obtained COMPARISON: XY CHEST PORTABLE on DOS: 03/29/24 FINDINGS: Lines and Tubes: None Lungs: Clear Pleura: No effusion. No pneumothorax. Cardiomediastinal contours: Cardiomegaly. Atherosclerotic vascular calcifications. Bones: Unremarkable IMPRESSION: 1. No acute disease. 2. Cardiomegaly.
[2024-08-09 02:23] LABS: Basophils # (auto) 0.1 10 ^3/uL (0-0.2); Basophils % (auto) 0.4 % (0.0-2.0); Eosinophils # (auto) 0.1 10 ^3/uL (0-0.8); Eosinophils % (auto) 0.5 % (0.0-7.0); Hematocrit 33.6 % (36.0-46.0); Hemoglobin 10.8 g/dL (12.2-16.2); Lymphocytes # (auto) 3.3 10 ^3/uL (0.4-5.4); Lymphocytes % (auto) 27.4 % (10.0-50.0); Mean Corpuscular Hemoglobin 27.6 pg (28.0-32.0); Mean Corpuscular Hgb Conc. 32.3 g/dL (32.0-36.0); Mean Corpuscular Volume 85.5 fL (80.0-100.0); Monocytes % (auto) 8.3 % (0.0-12.0); Neutrophils # (auto) 7.5 10 ^3/uL (1.6-8.6); Neutrophils % (auto) 63.4 % (37.0-80.0); Nucleated Red Blood Cells % 0.1 %; Platelet Count (auto) 302 10^3/uL (140-450); Red Blood Cells 3.93 10^6/uL (4.0-5.20); Red Cell Distribution Width 16.4 % (11.8-14.3); White Blood Cell 11.9 10^3/uL (4.4-10.8)
[2024-08-09] MEDS: HYDROcodone-ACET 5/325MG TAB PO ONE (06:04)
[2024-08-09 07:30] VITALS: PULSE 72; RESP 18; O2SAT 100
[2024-08-09] MEDS: OXYCODONE W/ ACETAMINOPHEN 5/325MG TABLET PO ONE (08:43)
[2024-08-09] MEDS ORDERED: NORT75CA37 PO (11:25)
[2024-08-09] MEDS ORDERED: TIZA-142 PO (11:25)
[2024-08-09] MEDS ORDERED: MET25T PO (11:25)
[2024-08-09] MEDS ORDERED: LEVE250T78 PO (11:25)
[2024-08-09] MEDS ORDERED: ASPI-325 PO (11:25)
[2024-08-09] MEDS ORDERED: ATOR40TA52 PO (11:25)
[2024-08-09] MEDS ORDERED: LOSA-534 PO (11:25)
[2024-08-09] MEDS ORDERED: SENN-111 (11:25)
[2024-08-09] MEDS ORDERED: AMLO1TAB23 PO (11:25)
[2024-08-09] MEDS ORDERED: DEXTROSE (50%) 50ML SYRG IV PRN (11:30)
[2024-08-09] MEDS: ACCU-CHEK COMFORT CURVE STRIP VI SCH (11:30)
[2024-08-09] MEDS ORDERED: NITROGLYCERIN 0.4 MG SL TAB SL PRN (11:30)
[2024-08-09] MEDS ORDERED: MORPHINE SULFATE INJ 2 MG/ml SYRG IV PRN (11:30)
--- NOTE | 2024-08-09 11:49 | DVHHP2 ---
History of Present Illness Reason for Visit: Status post mechanical fall History of Present Illness Karolina Hawkins is a 69-year-old female with past medical history of hypertension, diabetes type 2, chronic knee pain, degenerative joint disease, diabetic neuropathy, appendectomy, and right knee replacement who presents to [facility] ED status post fall while transferring out from bed to her wheelchair yesterday. Upon examination patient has a right forehead hematoma with no laceration or bleeding noted. Patient reports that this his her 4th fall recently. Patient reports that she is wheelchair-bound and does not walk. She states that she lives with family however she was just trying to transfer from her bed up to her wheelchair. Patient also reports that 2 months ago she was in [place] visiting her family and was admitted to the hospital diagnosed with sepsis and was given antibiotics to take home and finished the course. She states that she does not know which antibiotic she took. Patient reports of generalized body pain states that it is 8/10 "flat like" in nature and constant. Patient reports that when she fell she fell and hit her head with no loss of consciousness. Patient reports that she uses 2 L of oxygen via nasal cannula at home. She also reports that she uses breathing treatments every so often. Patient denies any chest pain, fever, chills, lightheadedness, weakness, dizziness, recent sick contacts, shortness of breath, abdominal pain, nausea, v omiting, or diarrhea. Cardiovascular: HTN Endocrine: Diabetes Past Medical History Chronic knee pain Degenerative joint disease Diabetic neuropathy Past Surgical History: Appendectomy, Other (Right knee replacement) Family History: Other (Mom with Alzheimer's and ) Smoke: <1 pack per day ALCOHOL: none Drugs: None Lives: with Family Domestic Violence: Neg Review of Systems Musculoskeletal: other (Generalized body pain) Allergies: Coded Allergies: NO KNOWN ALLERGIES (Unverified , 01/05/24) Exam Vital Signs Vital Signs Date Time Temp Pulse Resp B/P (MAP) Pulse Ox O2 Delivery O2 Flow Rate FiO2 08/09/24 10:00 74 16 114/66 (82) 99 08/09/24 07:30 Nasal Cannula* 2 28 08/09/24 07:30 98.0 98.0 General Appearance: Alert, Oriented X3, Cooperative, No acute distress HEENT: Atraumatic, PERRLA, EOMI, Mucous membr. moist/pink Respiratory: Clear to auscultation, Normal air movement Cardiovascular: Normal S1, Normal S2, No murmurs Abdominal: Normal bowel sounds, Soft, No tenderness, No hepatospenomegaly, No masses Extremities: No clubbing, No cyanosis Skin: No significant lesion Neuro: Normal speech, Normal tone, Sensation intact Psych/Mental Status: Mental status NL, Mood NL Labs/Xrays Labs Test 08/09/24 02:07 08/09/24 01:26 08/09/24 01:08 Range/Units White Blood Count 11.9 H 4.4-10.8 10^3/uL Red Blood Count 3.93 L 4.0-5.20 10^6/uL Hemoglobin 10.8 L 12.2-16.2 g/dL Hematocrit 33.6 L 36.0-46.0 % Mean Corpuscular Volume 85.5 80.0-100.0 fL Mean Corpuscular Hemoglobin 27.6 L 28.0-32.0 pg Mean Corpuscular Hemoglobin Concent 32.3 32.0-36.0 g/dL Red Cell Distribution Width 16.4 H 11.8-14.3 % Platelet Count 302 140-450 10^3/uL Mean Platelet Volume 7.4 6.9-10.8 fL Neutrophils (%) (Auto) 63.4 37.0-80.0 % Lymphocytes (%) (Auto) 27.4 10.0-50.0 % Monocytes (%) (Auto) 8.3 0.0-12.0 % Eosinophils (%) (Auto) 0.5 0.0-7.0 % Basophils (%) (Auto) 0.4 0.0-2.0 % Neutrophils # (Auto) 7.5 1.6-8.6 10 ^3/uL Lymphocytes # (Auto) 3.3 0.4-5.4 10 ^3/uL Monocytes # (Auto) 1.0 0-1.3 10 ^3/uL Eosinophils # (Auto) 0.1 0-0.8 10 ^3/uL Basophils # (Auto) 0.1 0-0.2 10 ^3/uL Nucleated Red Blood Cells 0.1 % Troponin I High Sensitivity < 3 L </=34 ng/L POC Glucose 210 H 70-106 mg/dl Sodium Level 139 136-145 mmol/L Potassium Level 3.4 L 3.5-5.1 mmol/L Chloride Level 102 98-107 mmol/L Carbon Dioxide Level 29 20-31 mmol/L Anion Gap 8 5-15 Blood Urea Nitrogen 19 9-23 mg/dL Creatinine 0.87 0.550-1.02 mg/dL Glomerular Filtration Rate Calc 73 >90 mL/min BUN/Creatinine Ratio 21.8 H 10.0-20.0 Serum Glucose 217 H 74-106 mg/dL Calcium Level 9.3 8.7-10.4 mg/dL EXAM: CT HEAD WITHOUT CONTRAST INDICATION: syncope TECHNIQUE: CT of the head without intravenous contrast. Radiation Dose : 1. Head: CT Dose: CTDI volume is 65 mGy. Dose-length product is 1410 mGy*cm The dose indicators for CT are the volume Computed Tomography (CT) Dose Index (C TDIvol) and the Dose Length Product (DLP), and are measured in units of mGy and mGy-cm, respectively. These indicators are not patient dose, but values generated from the CT scanner acquisition factors. The report includes radiation exposure data for exposures received during this examination. COMPARISON: CT HEAD WITHOUT CONTRAST on DOS: 03/29/24 FINDINGS: There is no evidence of acute intracranial hemorrhage, extra-axial collection, mass effect, midline shift, herniation or hydrocephalus. The ventricles, sulci and cisterns are age appropriate. The purvis-white differentiation is intact. Patchy periventricular and subcortical white matter hypoattenuation is nonspecific but may be related to small vessel ischemic disease. The visualized paranasal sinuses and mastoid air cells are clear. The surrounding soft tissues and osseous structures are unremarkable. IMPRESSION: 1. No acute intracranial abnormality. CHEST RADIOGRAPH Indication: syncope Technique: Single frontal view of the chest was obtained COMPARISON: XY CHEST PORTABLE on DOS: 03/29/24 FINDINGS: Lines and Tubes: None Lungs: Clear Pleura: No effusion. No pneumothorax. Cardiomediastinal contours: Cardiomegaly. Atherosclerotic vascular calcifications. Bones: Unremarkable IMPRESSION: 1. No acute disease. 2. Cardiomegaly. Assessment/Plan Assessment/Plan Assessment Sinus bradycardia Right forehead hematoma status post mechanical fall Leukocytosis rule out sepsis Anemia Hypokalemia Oxygen dependence Tobacco use Obesity Diabetes type 2 uncontrolled History of hypertension History of chronic knee pain History of DJD History of diabetic neuropathy History of appendectomy History of right knee replacement Plan Admit to [facility] CT head Pain management Antiemetics NS 1 L given ED EKG Troponin Chest x-ray noted Replete lytes Hemoglobin A1c ISS and Accu-Cheks Lactic level Blood cultures Urine cultures Duo nebs Diet Home medications reconciled DVT prophylaxis-patient on Plavix PUD prophylaxis-Protonix Discussed plan of care with patient and nurse Counseled patient on lifestyle modifications, diet, and exercise Counseled patient on tobacco cessation Cardiology consulted Counseled patient on medication management with beta-blockers when heart rate is less than 60 Plan discussed with: Patient My Orders Orders - LATONIA MILLS LIFE CONSULTANT Procedure Category Date Status Time Aspirin Enteric PHA 08/10/24 Logged Coated Tablet 10:00 Losartan Tablet PHA 08/10/24 Logged (Cozaar Tablet) 10:00 Metoprolol Tartrate PHA 08/09/24 Logged Tablet (Lopressor Ta 22:00 (Nf) Amlodipine PHA 08/10/24 Logged Besylate 10:00 (Nf) Tizanidine PHA 08/09/24 Logged Hydrochloride 14:00 Atorvastatin (Lipitor) PHA 08/09/24 Logged 22:00 Levetiracetam Tablet PHA 08/09/24 Logged (Keppra Tablet) 22:00 Nortriptyline Hcl PHA 08/09/24 Logged Capsule (Pamelor Capsu 22:00 Potassium Er Tablet PHA 08/09/24 Logged (Klor-Con Tablet) 11:30 Blood Culture CARMEN 08/09/24 Logged 11:29 Lactic Acid W/ Reflex LAB 08/09/24 Transmitted Order 11:29 Urine Bacterial CARMEN 08/09/24 Logged Culture 11:29 * Cardiology Consult CONS 08/09/24 Transmitted 11:29 Hemoglobin A1c LAB 08/09/24 Transmitted 11:29 Glucose Blood PHA 08/09/24 Logged (Accu-Chek Comfort 11:30 Insulin R (Human) PHA 08/09/24 Logged (Insulin R) 11:30 Dextrose 50% Syringe PHA 08/09/24 Logged 11:30 Ceftriaxone 1gm/50ml PHA 08/09/24 Logged D5w (Rocephin) 11:30 Admit ADMIT 08/09/24 Transmitted 11:29 Allergies MAI 08/09/24 In Process 11:29 Code Status CODE 08/09/24 Transmitted 11:29 Hydrocodone-Acet PHA 08/09/24 Logged 5/325mg Tab ([place] 11:30 Ondansetron Hcl PHA 08/09/24 Logged (Zofran) 11:30 Enoxaparin Sodium PHA 08/10/24 Logged (Lovenox) 10:00 Complete Blood Count LAB 08/10/24 Verified 04:00 Comprehensive LAB 08/10/24 Verified Metabolic Panel 04:00 Cardiac DIET 08/09/24 Transmitted Diet-2gna,Lofat,Lochol Lunch Acetaminophen Tablet PHA 08/09/24 Logged (Tylenol Tablet) 11:30 Morphine Sulfate PHA 08/09/24 Logged Injection 11:30 Nitroglycerin PHA 08/09/24 Logged Sublingual (Ntrostat 11:30 Morphine Sulfate PHA 08/09/24 Logged Injection 11:30 Stat Ekg For Chest [facility] 08/09/24 In Process Pain 11:29 Notify Md Of Changes [facility] 08/09/24 In Process From Base 11:29 Geochemical Laboratory Technician For [facility] 08/09/24 In Process 24 Hours 11:29 Emergency Dysrhythmia [facility] 08/09/24 In Process Protocol 11:29 Rhythm Strips Once [facility] 08/09/24 In Process Every Shift 11:29 Oxygen By Nasal RT 08/09/24 Transmitted Cannula 11:29 Date of Service: Aug 09, 2024 Billing Provider: LATONIA MILLS Common Visit Codes: [id number] INP/OBS CARE (HIGH) LATONIA MILLS Aug 09, 2024 11:49
[2024-08-09] MEDS: MORPHINE SULFATE INJ 2 MG/ml SYRG IV PRN (12:00)
[2024-08-09] MEDS: InsuLIN REG 1unit/0.01ml Soln (100units/ml) SC SCH (12:08)
[2024-08-09 12:09] VITALS: BP 111/85; PULSE 80; RESP 15; O2SAT 99
[2024-08-09] MEDS: cefTRIAXone 1GM/50ML D5W 50 ML IV SCH (12:21)
[2024-08-09] MEDS: POTASSIUM CHL 20 Meq TABLET PO ONE (12:24)
[2024-08-09] MEDS: amLODIPine BESYLATE 5 MG TAB PO SCH (12:24)
[2024-08-09 12:47] LABS: Urine Bacteria FEW /hpf (None Seen); Urine Blood Negative /uL (Negative); Urine Clarity Clear (Clear); Urine Color Light-Yellow (Yellow); Urine Mucus FEW (None Seen); Urine Protein, UAD Negative (Negative); Urine Specific Gravity 1.016 (1.001-1.035); Urine Squamous Epithelial Cell FEW /hpf (<5); Urine Urobilinogen Normal (Negative); Urine WBC 3 /HPF (0-5); Urine pH 6.5 (5.0-9.0)
[2024-08-09] MEDS: TIZANIDINE HYDROCHLORIDE 4 MG PO SCH (14:00)
--- NOTE | 2024-08-09 16:50 | DVHINCON2 ---
Date Seen: Aug 09, 2024 Referring Physician BRODERICK Art Reason for Consultation Bradycardia History of Present Illness This 69-year-old female presents in the ED with a chief complaint of falls. The patient reports as she was getting out of bed fall on the floor causing right forehead hematoma. In the emergency department, 12 lead ECG revealing sinus rhythm with RBBB, negative troponins and chest x-ray reveals cardiomegaly. Vp & General Counsel consulted for bradycardia. Upon assessment, the patient had an episode of bradycardia early this morning while asleep. The patient denies lightheadedness, chest pain, palpitation, dyspnea, orthopnea, or shortness of breath. The patient is currently taking metoprolol for hypertension. Denies history of CHF, UT, or CAD. Significant Past medical history of diabetes, hypertension, CVA, chronic right knee pain, and obesity. Past Medical History As stated in HPI Past Surgical History Knee surgery Family History: Alzheimer's disease G8 MOTHER FH: prostate cancer Prostate carcinoma G8 FATHER Family History Reviewed, non-contributory to the management of this case. Social History The patient lives at home, denies smoking, alcohol or illicit drugs abuse. Allergies: Coded Allergies: NO KNOWN ALLERGIES (Unverified , 01/05/24) Home Meds Active Scripts Hydrocodone-Acetaminophen (Hydrocodone Bitartrate/AC 5-325 mg) 1 Tab Tab, 1 TAB PO QID PRN, #30 TAB Prov:GABRIELLA ANDUJAR MD 01/08/24 Reported Medications Amlodipine Besylate (Amlodipine Besylate) 10 Mg Tab, 1 TAB PO DAILY 08/09/24 Levetiracetam (Levetiracetam) 250 Mg Tab, TAB PO 08/09/24 Atorvastatin Calcium (ATORVASTATIN CALCIUM) 40 Mg Tab, 1 TAB PO 08/09/24 Losartan Potassium (Losartan Potassium) 50 Mg Tab, 1 TAB PO DAILY 08/09/24 Metoprolol Tartrate (Lopressor) 25 Mg Tb, 1 TAB PO BID 08/09/24 Aspirin (Aspirin Low Dose) 81 Mg Tab, 1 TAB PO DAILY 08/09/24 Senna (EQ NATURAL VEGETABLE LAXA) 8.6 Mg Tab 08/09/24 Tizanidine Hydrochloride (Tizanidine Hcl) 4 Mg Tab, 1 TAB PO TID 08/09/24 Nortriptyline HCl (Nortriptyline Hydrochlori) 75 Mg Cap, 1 CAP PO 08/09/24 Current Medications Current Medications Medications (Trade) Dose Ordered Sig/Ibrahima Route PRN Reason Start Time Stop Time Status Last Admin Aspirin (Ecotrin Enteric Coated Tablet) 81 mg DAILY PO 08/10/24 10:00 Losartan Potassium (Cozaar Tablet) 50 mg DAILY PO 08/10/24 10:00 Metoprolol Tartrate (Lopressor Tablet) 25 mg BID PO 08/09/24 22:00 Amlodipine Besylate (Norvasc Tablet) 10 mg DAILY PO 08/09/24 12:09 08/09/24 12:24 Patient Own Medication 1 tab TID PO 08/09/24 14:00 Atorvastatin Calcium (Lipitor) 40 mg HS PO 08/09/24 22:00 Levetiracetam (Keppra Tablet) 250 mg BID PO 08/09/24 22:00 Nortriptyline HCl (Pamelor Capsule) 75 mg BID PO 08/09/24 22:00 Diagnostic Test (Pha) (Accu-Chek Comfort Curve T) 1 strip ACHS 08/09/24 11:30 08/09/24 11:30 Insulin Human Regular (InsuLIN R) ACHS SC 08/09/24 11:30 08/09/24 12:08 Dextrose 50 ml UD PRN IV Blood Sugar LESS THAN 60 08/09/24 11:30 Ceftriaxone Sodium 50 ml @ 100 mls/hr DAILY@09 IV 08/09/24 11:30 08/09/24 12:21 Acetaminophen/ Hydrocodone Bitart ([place] 5/325MG Tab) 1 tab Q4HP PRN PO MODERATE PAIN (4-6 PAIN SCALE) 08/09/24 11:30 Ondansetron HCl (Zofran) 4 mg Q4HP PRN IV NAUSEA / VOMITING 08/09/24 11:30 Enoxaparin Sodium (Lovenox) 40 mg DAILY SC 08/10/24 10:00 Acetaminophen (Tylenol Tablet) 650 mg Q6HP PRN PO PAIN SCALE 1-3 OR TEMP>100.4 08/09/24 11:30 Morphine Sulfate 2 mg Q4HPRN PRN IV SEVERE PAIN (7-10 PAIN SCALE) 08/09/24 11:30 Nitroglycerin (Ntrostat Sublingual) 0.4 mg Q5MINP PRN SL FOR CHEST PAIN 08/09/24 11:30 Morphine Sulfate 2 mg Q30M PRN IV FOR CHEST PAIN 08/09/24 11:30 Albuterol (Ventolin Medneb) 2.5 mg Q4HPRN PRN NEB SHORTNESS OF BREATH 08/09/24 12:00 Ipratropium [place] (Atrovent Medneb) 0.5 mg Q4HPRN PRN NEB SHORTNESS OF BREATH 08/09/24 12:00 Review of Systems Constitutional: Falls Ears, Nose, & Throat: No symptom reported Eyes: No symptom reported Neurological: No symptoms reported Pulmonary/Respiratory: No symptom reported Cardiovascular: Bradycardia Gastrointestinal: No symptom reported Genitourinary: No symptom reported Musculoskeletal: No symptom reported Skin: No symptom reported Psychiatric: No symptom reported Endocrine: No symptom reported Hematologic/Lymphatic: No symptom reported Vital Signs Vital Signs Date Time Temp Pulse Resp B/P (MAP) Pulse Ox O2 Delivery O2 Flow Rate FiO2 08/09/24 16:00 90 16 116/53 (74) 97 08/09/24 12:09 2.0 08/09/24 07:30 Nasal Cannula* 28 08/09/24 07:30 98.0 98.0 Physical Exam INITIAL VITAL SIGNS: Reviewed by me GENERAL: Alert and interactive. No acute distress. HEAD: Head is normocephalic and atraumatic. EYES: EOMI, PERRL. No scleral icterus. No conjunctival injection. ENT: Moist mucous membranes. NECK: Supple, No masses, Full range of motion. RESPIRATORY: No tachypnea. Clear breath sounds bilaterally. No wheezing, rales, rhonchi. CV: Regular rate and rhythm. No sinus pauses, no AV blocks, no edema GI/: Active bowel sounds, soft, nondistended, nontender. No guarding. No rebound. No masses. No CVA tenderness. INTEGUMENTARY: Left forehead hematoma NEUROLOGIC: Alert and oriented. Face is symmetric. Speech is normal. Moves all extremities equally. Labs/Diagnostic Data Labs Test 08/09/24 12:30 08/09/24 11:58 08/09/24 11:53 08/09/24 02:07 Range/Units Urine Color Light-yellow Yellow Urine Clarity Clear Clear Urine pH 6.5 5.0-9.0 Urine Specific [place] 1.016 1.001-1.035 Urine Protein Negative Negative Urine Ketones Negative Negative Urine Blood Negative Negative /uL Urine Nitrite Negative Negative Urine Bilirubin Negative Negative Urine Urobilinogen Normal Negative mg/dL Urine Leukocyte Esterase Negative Negative /uL Urine RBC 2 0 - 4 /hpf Urine Microscopic WBC 3 0-5 /HPF Urine Squamous Epithelial Cells Few <5 /hpf Urine Bacteria Few H None Seen /hpf Urine Mucus Few None Seen Urine Glucose Normal Normal mg/dL POC Glucose 255 H 70-106 mg/dl Lactic Acid Level 1.4 0.4-2.0 mmol/L White Blood Count 11.9 H 4.4-10.8 10^3/uL Red Blood Count 3.93 L 4.0-5.20 10^6/uL Hemoglobin 10.8 L 12.2-16.2 g/dL Hematocrit 33.6 L 36.0-46.0 % Mean Corpuscular Volume 85.5 80.0-100.0 fL Mean Corpuscular Hemoglobin 27.6 L 28.0-32.0 pg Mean Corpuscular Hemoglobin Concent 32.3 32.0-36.0 g/dL Red Cell Distribution Width 16.4 H 11.8-14.3 % Platelet Count 302 140-450 10^3/uL Mean Platelet Volume 7.4 6.9-10.8 fL Neutrophils (%) (Auto) 63.4 37.0-80.0 % Lymphocytes (%) (Auto) 27.4 10.0-50.0 % Monocytes (%) (Auto) 8.3 0.0-12.0 % Eosinophils (%) (Auto) 0.5 0.0-7.0 % Basophils (%) (Auto) 0.4 0.0-2.0 % Neutrophils # (Auto) 7.5 1.6-8.6 10 ^3/uL Lymphocytes # (Auto) 3.3 0.4-5.4 10 ^3/uL Monocytes # (Auto) 1.0 0-1.3 10 ^3/uL Eosinophils # (Auto) 0.1 0-0.8 10 ^3/uL Basophils # (Auto) 0.1 0-0.2 10 ^3/uL Nucleated Red Blood Cells 0.1 % Hemoglobin A1c 9.0 H <5.7 % A1C Troponin I High Sensitivity < 3 L </=34 ng/L Test 08/09/24 01:08 Range/Units Sodium Level 139 136-145 mmol/L Potassium Level 3.4 L 3.5-5.1 mmol/L Chloride Level 102 98-107 mmol/L Carbon Dioxide Level 29 20-31 mmol/L Anion Gap 8 5-15 Blood Urea Nitrogen 19 9-23 mg/dL Creatinine 0.87 0.550-1.02 mg/dL Glomerular Filtration Rate Calc 73 >90 mL/min BUN/Creatinine Ratio 21.8 H 10.0-20.0 Serum Glucose 217 H 74-106 mg/dL Calcium Level 9.3 8.7-10.4 mg/dL PROCEDURE(s): CXRP - CHEST PORTABLE REASON: syncope ORDER NUMBER(s): [id number], ACCESSION NUMBER(s): [id number] CHEST RADIOGRAPH Indication: syncope Technique: Single frontal view of the chest was obtained COMPARISON: XY CHEST PORTABLE on DOS: 03/29/24 FINDINGS: Lines and Tubes: None Lungs: Clear Pleura: No effusion. No pneumothorax. Cardiomediastinal contours: Cardiomegaly. Atherosclerotic vascular calcifications. Bones: Unremarkable IMPRESSION: 1. No acute disease. 2. Cardiomegaly. Assessment Episodes of Sinus bradycardia Cardiomegaly - rule out structural heart disease Fall out of bed Acute Hypotension Diabetes type 2 hx CVA Chronic lower back pain Obesity Plan/Recommendation Plan/Recommendation (Dr. Navas ): * Echocardiogram to evaluate cardiac function * Continue to monitor on telemetry The patient with episodes of sinus bradycardia while sleeping, asymptomatic, currently taking beta frank, 12 lead ECG with no sinus pauses/SSS or AV block, should continue to be monitored on telemetry. Monitor heart rate closely for possible discontinuation of AV melissa blocking agents. In the setting of unremarkable echocardiogram, we will sign off. This medical document was created using an electronic medical record system with voice recognition software and computerized dictation system. Although this document has been carefully reviewed, there might still be some phonetic and typographical errors. Occasional wrong-word or ``sound-alike substitutions may have occurred due to the inherent limitations of voice recognition software. These areas are purely typographical due to imperfections of the software pro grams and do not reflect any compromise in the patient's medical care. Please read the chart carefully and recognize, using context, where these substitutions have occurred. Plan discussed with: Patient Plan discussed with: Patient, Other (RN) NYHA Physical activity limitations: NA Date of Service: Aug 09, 2024 Billing Provider: JUAN NAVAS MD Cardiology Common Codes: CONSULT ONLY Cardiology Consultation Codes: [id number] CONSULT <45MIN MARII BRITT EGG PASTEURIZER Aug 09, 2024 16:50
[2024-08-09] MEDS ORDERED: CLOP75TA70 PO (16:59)
[2024-08-09] MEDS: PANTOPRAZOLE 40 MG/10 ML VIAL INJ IV SCH (17:39)
[2024-08-09 19:54] VITALS: PULSE 109; RESP 19; O2SAT 99
[2024-08-09] MEDS: IPRATROPIUM BROM 0.5 MG/2.5ML INH SOL NEB PRN (19:55)
[2024-08-09] MEDS: ALBUTEROL SULF 2.5 MG/0.5ML(0.5%) NEB SOLN NEB PRN (19:56)
[2024-08-09 20:00] VITALS: PULSE 108; PULSE 109; RESP 18; RESP 23; O2SAT 100; O2SAT 94
[2024-08-09] MEDS: HYDROcodone-ACET 5/325MG TAB PO PRN (20:18)
--- NOTE | 2024-08-09 20:39 | DVHINCON2 ---
Date Seen: Aug 09, 2024 Referring Physician BRODERICK Art Reason for Consultation Bradycardia History of Present Illness This is a 69 year old female with a PMH of diabetes, hypertension, CVA, chronic right knee pain, and obesity who presented to the ED with complaints of falls. The patient reports as she was getting out of bed fall on the floor causing right forehead hematoma. In the emergency department, 12 lead ECG revealing sinus rhythm with RBBB, negative troponins and chest x-ray reveals cardiomegaly. Content Engineer consulted for bradycardia. Upon assessment, the patient had an episode of bradycardia early this morning while asleep. The patient denies lightheadedness, chest pain, palpitation, dyspnea, orthopnea, or shortness of breath. The patient is currently taking metoprolol for hypertension. Chest x-ray shows cardiomegaly. Past Medical History As stated in HPI Past Surgical History Knee surgery Family History: Alzheimer's disease G8 MOTHER FH: prostate cancer Prostate carcinoma G8 FATHER Allergies: Coded Allergies: NO KNOWN ALLERGIES (Unverified , 01/05/24) Home Meds Active Scripts Hydrocodone-Acetaminophen (Hydrocodone Bitartrate/AC 5-325 mg) 1 Tab Tab, 1 TAB PO QID PRN, #30 TAB Prov:GABRIELLA ANDUJAR MD 01/08/24 Reported Medications Clopidogrel Bisulfate (CLOPIDOGREL) 75 Mg Tab, 1 TAB PO DAILY 08/09/24 Amlodipine Besylate (Amlodipine Besylate) 10 Mg Tab, 1 TAB PO DAILY 08/09/24 Levetiracetam (Levetiracetam) 250 Mg Tab, TAB PO 08/09/24 Atorvastatin Calcium (ATORVASTATIN CALCIUM) 40 Mg Tab, 1 TAB PO 08/09/24 Losartan Potassium (Losartan Potassium) 50 Mg Tab, 1 TAB PO DAILY 08/09/24 Metoprolol Tartrate (Lopressor) 25 Mg Tb, 1 TAB PO BID 08/09/24 Aspirin (Aspirin Low Dose) 81 Mg Tab, 1 TAB PO DAILY 08/09/24 Senna (EQ NATURAL VEGETABLE LAXA) 8.6 Mg Tab 08/09/24 Tizanidine Hydrochloride (Tizanidine Hcl) 4 Mg Tab, 1 TAB PO TID 08/09/24 Nortriptyline HCl (Nortriptyline Hydrochlori) 75 Mg Cap, 1 CAP PO 08/09/24 Current Medications Current Medications Medications (Trade) Dose Ordered Sig/Ibrahima Route PRN Reason Start Time Stop Time Status Last Admin Aspirin (Ecotrin Enteric Coated Tablet) 81 mg DAILY PO 08/10/24 10:00 Losartan Potassium (Cozaar Tablet) 50 mg DAILY PO 08/10/24 10:00 Metoprolol Tartrate (Lopressor Tablet) 25 mg BID PO 08/09/24 22:00 Amlodipine Besylate (Norvasc Tablet) 10 mg DAILY PO 08/09/24 12:09 08/09/24 12:24 Patient Own Medication 1 tab TID PO 08/09/24 14:00 Atorvastatin Calcium (Lipitor) 40 mg HS PO 08/09/24 22:00 Levetiracetam (Keppra Tablet) 250 mg BID PO 08/09/24 22:00 Nortriptyline HCl (Pamelor Capsule) 75 mg BID PO 08/09/24 22:00 Diagnostic Test (Pha) (Accu-Chek Comfort Curve T) 1 strip ACHS 08/09/24 11:30 08/09/24 17:21 Insulin Human Regular (InsuLIN R) ACHS SC 08/09/24 11:30 08/09/24 17:23 Dextrose 50 ml UD PRN IV Blood Sugar LESS THAN 60 08/09/24 11:30 Ceftriaxone Sodium 50 ml @ 100 mls/hr DAILY@09 IV 08/09/24 11:30 08/09/24 12:21 Acetaminophen/ Hydrocodone Bitart ([place] 5/325MG Tab) 1 tab Q4HP PRN PO MODERATE PAIN (4-6 PAIN SCALE) 08/09/24 11:30 08/09/24 20:18 Ondansetron HCl (Zofran) 4 mg Q4HP PRN IV NAUSEA / VOMITING 08/09/24 11:30 Enoxaparin Sodium (Lovenox) 40 mg DAILY SC 08/10/24 10:00 08/09/24 16:45 DC Acetaminophen (Tylenol Tablet) 650 mg Q6HP PRN PO PAIN SCALE 1-3 OR TEMP>100.4 08/09/24 11:30 Morphine Sulfate 2 mg Q4HPRN PRN IV SEVERE PAIN (7-10 PAIN SCALE) 08/09/24 11:30 08/09/24 17:38 Nitroglycerin (Ntrostat Sublingual) 0.4 mg Q5MINP PRN SL FOR CHEST PAIN 08/09/24 11:30 Morphine Sulfate 2 mg Q30M PRN IV FOR CHEST PAIN 08/09/24 11:30 Albuterol (Ventolin Medneb) 2.5 mg Q4HPRN PRN NEB SHORTNESS OF BREATH 08/09/24 12:00 08/09/24 19:56 Ipratropium [place] (Atrovent Medneb) 0.5 mg Q4HPRN PRN NEB SHORTNESS OF BREATH 08/09/24 12:00 08/09/24 19:55 Clopidogrel Bisulfate (Plavix) 75 mg DAILY PO 08/10/24 10:00 Pantoprazole Sodium (Protonix) 40 mg DAILY IV 08/09/24 17:00 08/09/24 17:39 Review of Systems Constitutional: Falls Ears, Nose, & Throat: No symptom reported Eyes: No symptom reported Neurological: No symptoms reported Pulmonary/Respiratory: No symptom reported Cardiovascular: Bradycardia Gastrointestinal: No symptom reported Genitourinary: No symptom reported Musculoskeletal: No symptom reported Skin: No symptom reported Psychiatric: No symptom reported Endocrine: No symptom reported Hematologic/Lymphatic: No symptom reported Vital Signs Vital Signs Date Time Temp Pulse Resp B/P (MAP) Pulse Ox O2 Delivery O2 Flow Rate FiO2 08/09/24 20:00 108 18 100 08/09/24 19:54 Room Air* 0 21 08/09/24 18:07 128/87 08/09/24 07:30 98.0 98.0 Physical Exam GENERAL: Alert and oriented x 3. No acute distress. EYES: PERRL, EOMI. Anicteric. HENT: Moist mucous membranes. LUNGS: Clear to auscultation bilaterally. CARDIOVASCULAR: Regular rate and rhythm. ABDOMEN: Soft, non-tender and non-distended. EXTREMITIES: No edema. NEUROLOGIC: No focal neurological deficits. SKIN: Warm, dry. Left forehead hematoma Labs/Diagnostic Data Labs Test 08/09/24 17:10 08/09/24 12:30 08/09/24 11:53 08/09/24 02:07 Range/Units POC Glucose 289 H 70-106 mg/dl Urine Color Light-yellow Yellow Urine Clarity Clear Clear Urine pH 6.5 5.0-9.0 Urine Specific [place] 1.016 1.001-1.035 Urine Protein Negative Negative Urine Ketones Negative Negative Urine Blood Negative Negative /uL Urine Nitrite Negative Negative Urine Bilirubin Negative Negative Urine Urobilinogen Normal Negative mg/dL Urine Leukocyte Esterase Negative Negative /uL Urine RBC 2 0 - 4 /hpf Urine Microscopic WBC 3 0-5 /HPF Urine Squamous Epithelial Cells Few <5 /hpf Urine Bacteria Few H None Seen /hpf Urine Mucus Few None Seen Urine Glucose Normal Normal mg/dL Lactic Acid Level 1.4 0.4-2.0 mmol/L White Blood Count 11.9 H 4.4-10.8 10^3/uL Red Blood Count 3.93 L 4.0-5.20 10^6/uL Hemoglobin 10.8 L 12.2-16.2 g/dL Hematocrit 33.6 L 36.0-46.0 % Mean Corpuscular Volume 85.5 80.0-100.0 fL Mean Corpuscular Hemoglobin 27.6 L 28.0-32.0 pg Mean Corpuscular Hemoglobin Concent 32.3 32.0-36.0 g/dL Red Cell Distribution Width 16.4 H 11.8-14.3 % Platelet Count 302 140-450 10^3/uL Mean Platelet Volume 7.4 6.9-10.8 fL Neutrophils (%) (Auto) 63.4 37.0-80.0 % Lymphocytes (%) (Auto) 27.4 10.0-50.0 % Monocytes (%) (Auto) 8.3 0.0-12.0 % Eosinophils (%) (Auto) 0.5 0.0-7.0 % Basophils (%) (Auto) 0.4 0.0-2.0 % Neutrophils # (Auto) 7.5 1.6-8.6 10 ^3/uL Lymphocytes # (Auto) 3.3 0.4-5.4 10 ^3/uL Monocytes # (Auto) 1.0 0-1.3 10 ^3/uL Eosinophils # (Auto) 0.1 0-0.8 10 ^3/uL Basophils # (Auto) 0.1 0-0.2 10 ^3/uL Nucleated Red Blood Cells 0.1 % Hemoglobin A1c 9.0 H <5.7 % A1C Troponin I High Sensitivity < 3 L </=34 ng/L Test 08/09/24 01:08 Range/Units Sodium Level 139 136-145 mmol/L Potassium Level 3.4 L 3.5-5.1 mmol/L Chloride Level 102 98-107 mmol/L Carbon Dioxide Level 29 20-31 mmol/L Anion Gap 8 5-15 Blood Urea Nitrogen 19 9-23 mg/dL Creatinine 0.87 0.550-1.02 mg/dL Glomerular Filtration Rate Calc 73 >90 mL/min BUN/Creatinine Ratio 21.8 H 10.0-20.0 Serum Glucose 217 H 74-106 mg/dL Calcium Level 9.3 8.7-10.4 mg/dL Assessment Episodes of sinus bradycardia. Cardiomegaly - rule out structural heart disease. Fall out of bed. Acute Hypotension. Diabetes type 2. History of CVA. Chronic lower back pain. Obesity. Plan/Recommendation I agree with your ongoing assessment and care of plan. Patient has been seen by Lottie Mackay NP on my behalf. We have discussed the plan with the patient. The patient with episodes of sinus bradycardia while sleeping, asymptomatic, currently taking beta frank, 12 lead ECG with no sinus pauses/SSS or AV block, should continue to be monitored on telemetry. Monitor heart rate closely for possible discontinuation of AV melissa blocking agents. Echocardiogram to evaluate cardiac function. Continue to monitor on telemetry. IV antibiotics as ordered. Follow up on cultures. Additional plan as per the hospital course. Plan discussed with: Patient NYHA Physical activity limitations: NA Date of Service: Aug 09, 2024 Billing Provider: JUAN BORREGO MD Cardiology Common Codes: [id number] INP/OBS CARE (High) Cardiology Consultation Codes: [id number] CONSULT <45MIN JUAN BORREGO MD Aug 09, 2024 20:39
[2024-08-09] MEDS: ONDANSETRON HCL 4 MG/2 ML VIAL IV PRN (21:38)
[2024-08-09] MEDS: NORTRIPTYLINE HCL 25 MG CAP PO SCH (22:00)
[2024-08-09 22:43] VITALS: BP 143/85; PULSE 100; PULSE 120; RESP 17; RESP 20; TEMP 98.8; O2SAT 0; O2SAT 93
[2024-08-09] MEDS: ATORVASTATIN 20 MG TAB PO SCH (23:46)
[2024-08-09] MEDS: levETIRAcetam 500 MG TAB PO SCH (23:46)
[2024-08-09] MEDS: METOPROLOL TARTRATE 25 MG TAB PO SCH (23:47)
[2024-08-10] VITALS (12 sets, daily range): BP systolic 92–121; BP diastolic 19–77; PULSE 77–104; RESP 16–18; TEMP 97.9–98.7; O2SAT 18–97
[2024-08-10] MEDS: CLOPIDOGREL BISULFATE 75 MG TAB PO SCH (08:16)
[2024-08-10] MEDS: ASPirin-EC 81 mg tab PO SCH (08:16)
[2024-08-10] MEDS ORDERED: ENOXAPARIN SOD 40 MG/0.4 ML SYRINGE SC SCH (10:00)
[2024-08-10] MEDS: LOSARTAN POTASSIUM 50 MG TAB PO SCH (10:00)
[2024-08-10 11:00] LABS: Basophils # (auto) 0 10 ^3/uL (0-0.2); Basophils % (auto) 0.3 % (0.0-2.0); Eosinophils # (auto) 0.1 10 ^3/uL (0-0.8); Eosinophils % (auto) 1.4 % (0.0-7.0); Hematocrit 32.4 % (36.0-46.0); Hemoglobin 10.9 g/dL (12.2-16.2); Lymphocytes # (auto) 2.2 10 ^3/uL (0.4-5.4); Lymphocytes % (auto) 23.4 % (10.0-50.0); Mean Corpuscular Hemoglobin 27.8 pg (28.0-32.0); Mean Corpuscular Hgb Conc. 33.5 g/dL (32.0-36.0); Mean Corpuscular Volume 82.8 fL (80.0-100.0); Monocytes # (auto) 0.9 10 ^3/uL (0-1.3); Monocytes % (auto) 9.3 % (0.0-12.0); Neutrophils % (auto) 65.6 % (37.0-80.0); Platelet Count (auto) 305 10^3/uL (140-450); Red Blood Cells 3.91 10^6/uL (4.0-5.20); Red Cell Distribution Width 16.3 % (11.8-14.3); White Blood Cell 9.2 10^3/uL (4.4-10.8)
[2024-08-10] MEDS: POTASSIUM CHL 20 Meq TABLET PO ONE (11:02)
[2024-08-10 11:12] LABS: INR 1.07 (0.9-1.15); Partial Thromboplastin Time 27.2 SEC (24.5-34.5); Prothrombin Time 11.3 sec (9.3-11.8)
[2024-08-10 11:15] LABS: Alanine Aminotransferase 52 U/L (7-40); Albumin 3.6 g/dL (3.2-4.8); Alkaline Phosphatase 115 U/L (46-116); Anion Gap 6 (5-15); Aspartate Aminotransferase 48 U/L (13-40); BUN/Creatinine Ratio 17.9 (10.0-20.0); Blood Urea Nitrogen 15 mg/dL (9-23); Calcium 9.2 mg/dL (8.7-10.4); Carbon Dioxide 27 mmol/L (20-31); Chloride 103 mmol/L (98-107); Glucose 288 mg/dL (74-106); Potassium 4.1 mmol/L (3.5-5.1); Sodium 136 mmol/L (136-145); Total Protein 6.8 g/dL (5.7-8.2)
[2024-08-10 11:16] LABS: Bilirubin, Total 0.4 mg/dL (0.2-1.0)
[2024-08-10] MEDS ORDERED: HYDROcodone-ACET 5/325MG TAB PO PRN (11:30)
--- NOTE | 2024-08-10 12:03 | DVHPNRES ---
Progress Note Date Seen: Aug 10, 2024 Resident Creating Document: SUSIE CHOW RESIDENT Has the PT tested + for MRSA If YES, has PT been informed?: No Medical Necessity Reason Pt with a Central, PICC or Fol: No Medical Necessity Reason History of Present Illness Karolina Hawkins is a 69-year-old female with past medical history of hypertension, diabetes type 2, chronic knee pain, degenerative joint disease, diabetic neuropathy, appendectomy, and right knee replacement who presents to the ED status post fall while transferring out from bed to her wheelchair yesterday. Patient reports that she is wheelchair-bound and does not walk. Patient reports that this his her 4th fall recently. She reports living at home with her daughter and uses oxygen on 2L at home. She reports generalized body pain states that it is 8/10 "flat like" in nature and constant. Upon examination patient has a right forehead hematoma with no laceration or bleeding noted. Patient denies any chest pain, fever, chills, lightheadedness, weakness, dizziness, recent sick contacts, shortness of breath, abdominal pain, nausea, vomiting, or diarrhea. Pmhx: hypertension, diabetes type 2, chronic knee pain, degenerative joint disease, diabetic neuropathy Past Surgical History: Appendectomy, Other (Right knee replacement) Family History: Other (Mom with Alzheimer's and ) Social History: <1 pack per day, denies alcohol or drugs, lives with her daughter PN 08/10/2024 Patient is a 69 year of female with significant patient medical history who presented to the ED after a fall and hit her head with a hematoma on her right frontal. According to the patient, she is wheel chair bound since her knee surgery over 15 years ago ( 2009). She had her wheelchair by her bed. She was trying to get into chair to go to the bathroom and she found herself on the floor. She hit her forehead on the floor and noticed a bump. She complains mild headache,but has generalized body pains for which she takes [place]. Of note, patient said earlier this year, she was admitted at a hospital in [facility] and treated for sepsis. She was in the hospital and in recovery for a total of 2 months. At [facility], her vitals: BP: 104/56, HR: 62. RR: 18. Lab work shows leukocytosis, anemia; hyperglycemia with glucose of 210-360 and A1C 9.0 PMHx: DM, Hypertension, Degenerative joint disease, Lumbosacral spine, Diabetic neuropathy Past Surgical History: Appendectomy, Right knee replacement. 2010 Family History: Other (Mom with Alzheimer's and ) Social History: <1 pack per day, denies alcohol or drugs, lives with her daughter Subjective Review of Systems Constitutional: Denies fever no chills no feeling of malaise HEENT: Denies headache, ear pain, ear discharges, conjunctivitis, nasal discharge throat pain Cardiovascular: Denies chest pain, palpitation, orthopnea, PND, or pedal edema Respiratory: Denies shortness of breath, cough cough, sputum production, hemoptysis, GI: Denies abdominal pain, nausea, vomiting, diarrhea, hematemesis, hematochezia, : Denies frequency, urgency, hematuria, Endocrine: Denies unintentional weight gain or weight loss, feeling of hot flashes, Venkat: Denies easy bruising, bleeding disorders, epistaxis Musculoskeletal: Denies joint pains, muscle aches Psych: No evidence of depression, noel, suicidal ideation Objective vital signs Vital Sign Date Time Temp Pulse Resp B/P (MAP) Pulse Ox O2 Delivery O2 Flow Rate FiO2 08/10/24 09:03 97 Room Air 0.0 08/10/24 09:03 21 08/10/24 09:00 98.7 86 18 107/63 (78) 98.7 Total Intake and Output 08/09/24 08/09/24 08/10/24 15:00 23:00 07:00 Intake Total 480 ml Output Total 1000 ml 750 ml Balance -1000 ml -270 ml medications Current Medications Medications Dose Ordered Sig/Ibrahima Route Start Time Stop Time Status Last Admin Dose Admin Aspirin 81 mg DAILY PO 08/10/24 10:00 08/10/24 08:16 81 MG Losartan Potassium 50 mg DAILY PO 08/10/24 10:00 Metoprolol Tartrate 25 mg BID PO 08/09/24 22:00 08/09/24 23:47 25 MG Amlodipine Besylate 10 mg DAILY PO 08/09/24 12:09 08/09/24 12:24 10 MG Patient Own Medication 1 tab TID PO 08/09/24 14:00 Atorvastatin Calcium 40 mg HS PO 08/09/24 22:00 08/09/24 23:46 40 MG Levetiracetam 250 mg BID PO 08/09/24 22:00 08/10/24 08:16 250 MG Nortriptyline HCl 75 mg BID PO 08/09/24 22:00 Diagnostic Test (Pha) 1 strip ACHS 08/09/24 11:30 08/10/24 11:14 1 STRIP Insulin Human Regular ACHS SC 08/09/24 11:30 08/10/24 06:13 6 UNITS Dextrose 50 ml UD PRN IV 08/09/24 11:30 Ceftriaxone Sodium 50 ml @ 100 mls/hr DAILY@09 IV 08/09/24 11:30 08/10/24 08:17 100 MLS/HR Acetaminophen/ Hydrocodone Bitart 1 tab Q4HP PRN PO 08/09/24 11:30 08/10/24 11:03 1 TAB Ondansetron HCl 4 mg Q4HP PRN IV 08/09/24 11:30 08/09/24 21:38 4 MG Acetaminophen 650 mg Q6HP PRN PO 08/09/24 11:30 Morphine Sulfate 2 mg Q4HPRN PRN IV 08/09/24 11:30 08/10/24 08:18 2 MG Nitroglycerin 0.4 mg Q5MINP PRN SL 08/09/24 11:30 Morphine Sulfate 2 mg Q30M PRN IV 08/09/24 11:30 Albuterol 2.5 mg Q4HPRN PRN NEB 08/09/24 12:00 08/09/24 19:56 2.5 MG Ipratropium [place] 0.5 mg Q4HPRN PRN NEB 08/09/24 12:00 08/09/24 19:55 0.5 MG Clopidogrel Bisulfate 75 mg DAILY PO 08/10/24 10:00 08/10/24 08:16 75 MG Pantoprazole Sodium 40 mg DAILY IV 08/09/24 17:00 08/10/24 08:15 40 MG Examination General Appearance: Alert, Oriented X3, Cooperative, No acute distress, lying in bed HEENT: Atraumatic, PERRLA, EOMI, Mucous membrane moist/pink Respiratory: Clear to auscultation, Normal air movement Cardiovascular: Regular rate, Normal S1, Normal S2, No murmurs, no chest wall tenderness Abdominal: NO distention, no tenderness, bowel sounds present, no scars noted, noted some small thickness within the skin Extremities: No clubbing, No cyanosis, No edema, Normal pulses, No tenderness/swelling Skin: No rashes, No breakdown, No significant lesion Neuro: Bedbound Normal speech, Strength at 5/5 X2 ext, Normal tone, Sensation intact, Cranial nerves 3-12 NL, Reflexes 2+ Psych/Mental Status: Mental status NL, Mood NL laboratory and microbiology Laboratory Tests 08/10/24 10:20 Test 08/10/24 10:20 Range/Units Serum Glucose 288 H 74-106 mg/dL Problem List/Assessment/Plan Problem List/Assessment/Plan Assessment Mechanical fall likely due to peripheral neuropathy vs degenerative joint disease vs orthostatic --> fell when trying to get into her wheelchair --> Wheelchair bound --> get orthostatic bp Uncontrolled diabetes type 2 --> A1c: 9.0 --> Blood glucose 210--360 --> lantus 25 unit HS --> mild sliding scale Diabetic neuropathy --> Gabapetin Obesity Grade I --> BMI: 34.4 --> healthy diet Hypertension --> Continue home medication Chronic knee pain --> Degenerative joint disease --> Savanna 10-325 tid prn for pain management S/P Appendectomy S/p right knee surgery Care discussed for 18 year minute: Full code Case and plan discussed with Dr. Goff Plan discussed with: Patient My Orders My Orders Orders - SUSIE CHOW Procedure Category Date Status Time Hydrocodone-Acet PHA 08/10/24 Logged 5/325mg Tab ([place] 11:30 Date of Service: Aug 10, 2024 Billing Provider: AISHA GOFF DO Common Visit Codes: [id number] INP/OBS CARE(HIGH) SUSIE CHOW Aug 10, 2024 12:03 AISHA GOFF DO Aug 11, 2024 07:55
[2024-08-10] MEDS: GABAPENTIN 100 MG CAP PO ONE (13:58)
--- NOTE | 2024-08-10 14:16 | DVHSR ---
APPROVED REPORT EXAM: Two-dimensional and M-mode echocardiogram with Doppler and color Doppler. Blood Pressure: 100/60 mmHg INDICATION Bradycardia RISK FACTORS Obesity: Height: 5'10", Weight: 240 DIMENSIONS LVDd4.6 (3.8-5.7cm)LA (2D)3.7 (1.9-4.0cm)Aortic Root3.5 (2.0-3.7cm) LVDs3.1 (2.5-4.0cm)LA (MM) (1.9-4.0cm)Aortic Cusp Exc2.0 (1.5-2.0cm) EF (%) 60.0 (55-70%)Rt. Atrium3.6 (1.9-4.0cm)Asc. Aorta cm IVSd1.1 (0.7-1.1cm)RV (D)3.8 (1.8-2.4cm) PWd1.0 (0.7-1.1cm) Mitral Valve MitralMitral Stenosis E wave0.77m/sMV Mean GR.mmHg A wave0.71m/sMV Peak GR.mmHg E/A ratio1.12D MVAcm2 DECEL [id number] 1/2 Timems Aortic Valve Aortic ValveAortic Stenosis V10.91m/Sharee Mean GR.3mmHg V21.30m/Sharee Peak GR.7mmHg LVOT Diameter2.1 (1.8-2.4cm)Doppler AVA2.42cm2 Pulmonic Valve V20.83m/s Tricuspid Valve TR Velocity2.82m/s [id number] Conclusion MILD LVH AND MILD LV DIASTOLIC DYSFUNCTION LV EF IS 70% AND IS NORMAL AORTIC SCLEROSIS BUT NO STENOSIS NORMAL MV,TV AND PV SLIGHTLY DILATED RV BUT NORMAL FUNCTION NO EFFUSION RVSP IS 45 MM OF HG AND IS MODERATELY HIGH MODERATE DEGREE PULMONARY HYPERTENSION
[2024-08-10] MEDS: HYDROcodone-ACET 10/325MG TAB PO PRN (18:36)
[2024-08-10] MEDS: INSULIN LANTUS (GLARGINE) 1 /0.01ml (100units/ml) SC SCH (22:21)
--- NOTE | 2024-08-10 23:00 | DVHPN2 ---
Progress Note - Dictate Date Seen: Aug 10, 2024 Has the PT tested + for MRSA If YES, has PT been informed?: No Medical Necessity Reason Pt with a Central, PICC or Fol: No Subjective Patient was seen and evaluated in follow up. Patient is complaining of a headache. GLUC 237, AST 48, ALT 52. Cultures are pending. Telemetry reviewed. vital signs Vital Sign Date Time Temp Pulse Resp B/P (MAP) Pulse Ox O2 Delivery O2 Flow Rate FiO2 08/10/24 17:00 98.2 88 108/62 (77) 95 98.2 08/10/24 15:26 18 08/10/24 10:15 Nasal Cannula 1.0 08/10/24 10:15 24 Total Intake and Output 08/09/24 08/09/24 08/10/24 15:00 23:00 07:00 Intake Total 480 ml Output Total 1000 ml 750 ml Balance -1000 ml -270 ml medications Current Medications Medications Dose Ordered Sig/Ibrahima Route Start Time Stop Time Status Last Admin Dose Admin Aspirin 81 mg DAILY PO 08/10/24 10:00 08/10/24 08:16 81 MG Losartan Potassium 50 mg DAILY PO 08/10/24 10:00 Metoprolol Tartrate 25 mg BID PO 08/09/24 22:00 08/09/24 23:47 25 MG Amlodipine Besylate 10 mg DAILY PO 08/09/24 12:09 08/09/24 12:24 10 MG Atorvastatin Calcium 40 mg HS PO 08/09/24 22:00 08/09/24 23:46 40 MG Levetiracetam 250 mg BID PO 08/09/24 22:00 08/10/24 08:16 250 MG Nortriptyline HCl 75 mg BID PO 08/09/24 22:00 Diagnostic Test (Pha) 1 strip ACHS 08/09/24 11:30 08/10/24 16:53 1 STRIP Insulin Human Regular ACHS SC 08/09/24 11:30 08/10/24 17:14 4 UNITS Dextrose 50 ml UD PRN IV 08/09/24 11:30 Ondansetron HCl 4 mg Q4HP PRN IV 08/09/24 11:30 08/09/24 21:38 4 MG Acetaminophen 650 mg Q6HP PRN PO 08/09/24 11:30 Morphine Sulfate 2 mg Q4HPRN PRN IV 08/09/24 11:30 08/10/24 14:56 2 MG Nitroglycerin 0.4 mg Q5MINP PRN SL 08/09/24 11:30 Morphine Sulfate 2 mg Q30M PRN IV 08/09/24 11:30 Albuterol 2.5 mg Q4HPRN PRN NEB 08/09/24 12:00 08/09/24 19:56 2.5 MG Ipratropium [place] 0.5 mg Q4HPRN PRN NEB 08/09/24 12:00 08/09/24 19:55 0.5 MG Clopidogrel Bisulfate 75 mg DAILY PO 08/10/24 10:00 08/10/24 08:16 75 MG Pantoprazole Sodium 40 mg DAILY IV 08/09/24 17:00 08/10/24 08:15 40 MG Insulin Glargine 25 units HS SC 08/10/24 22:00 Gabapentin 100 mg DAILY PO 08/11/24 10:00 Acetaminophen/ Hydrocodone Bitart 1 tab Q8HP PRN PO 08/10/24 17:45 08/10/24 18:36 1 TAB objective GENERAL: Alert and oriented x 3. No acute distress. EYES: PERRL, EOMI. Anicteric. HENT: Moist mucous membranes. LUNGS: Clear to auscultation bilaterally. CARDIOVASCULAR: Regular rate and rhythm. ABDOMEN: Soft, non-tender and non-distended. EXTREMITIES: No edema. NEUROLOGIC: No focal neurological deficits. SKIN: Warm, dry. Left forehead hematoma laboratory and microbiology Laboratory Tests 08/10/24 10:20 Test 08/10/24 10:20 Range/Units Serum Glucose 288 H 74-106 mg/dL Problem List Episodes of sinus bradycardia. Cardiomegaly - rule out structural heart disease. Fall out of bed. Acute Hypotension. Diabetes type 2. History of CVA. Chronic lower back pain. Obesity. Assessment/Plan Continued all current supportive medical care. Morphine and [place] for pain management. Aspirin, Lipitor, Plavix, Metoprolol. Amlodipine. GI prophylactics. Additional plan as per the hospital course. Plan discussed with: Patient JUAN BORREGO MD Aug 10, 2024 18:54
[2024-08-11] VITALS (12 sets, daily range): BP systolic 99–141; BP diastolic 43–76; PULSE 62–87; RESP 16–19; TEMP 97.3–99.1; O2SAT 93–98
[2024-08-11] MEDS: INSULIN LANTUS (GLARGINE) 1 /0.01ml (100units/ml) SC SCH ×2 (07:15→21:59)
--- NOTE | 2024-08-11 09:25 | ECG ---
[facility] Test Date: 2024-08-09 Test Time: 00:37:45 Pat Name: OVIDIO ZENDEJAS Department: ED Room: 0290T A Gender: F Freight Booker: jenny : 1955 Requested By: HUMERA MCKINNON Order Number: [id number] Reading MD: David Luther Measurements Intervals Gary Rate: 59 P: 46 MD: 203 QRS: 31 QRSD: 82 T: 33 QT: 464 QTc: 460 Interpretive Statements Sinus rhythm Low voltage, precordial leads Electronically Signed On 08-13-2024 12:43:46 PDT by David Luther Please click the below link to view image of tracing.
[2024-08-11] MEDS: GABAPENTIN 100 MG CAP PO SCH (10:17)
[2024-08-11 10:49] LABS: Basophils # (auto) 0.1 10 ^3/uL (0-0.2); Basophils % (auto) 0.7 % (0.0-2.0); Eosinophils # (auto) 0.2 10 ^3/uL (0-0.8); Eosinophils % (auto) 2.7 % (0.0-7.0); Hematocrit 33.6 % (36.0-46.0); Hemoglobin 11.2 g/dL (12.2-16.2); Lymphocytes # (auto) 2.5 10 ^3/uL (0.4-5.4); Lymphocytes % (auto) 37.6 % (10.0-50.0); Mean Corpuscular Hemoglobin 27.7 pg (28.0-32.0); Mean Corpuscular Hgb Conc. 33.4 g/dL (32.0-36.0); Mean Corpuscular Volume 83.2 fL (80.0-100.0); Monocytes # (auto) 0.7 10 ^3/uL (0-1.3); Monocytes % (auto) 10.1 % (0.0-12.0); Neutrophils # (auto) 3.3 10 ^3/uL (1.6-8.6); Neutrophils % (auto) 48.9 % (37.0-80.0); Nucleated Red Blood Cells % 0.1 %; Platelet Count (auto) 315 10^3/uL (140-450); Red Blood Cells 4.04 10^6/uL (4.0-5.20); Red Cell Distribution Width 16.2 % (11.8-14.3); White Blood Cell 6.8 10^3/uL (4.4-10.8)
[2024-08-11 11:12] LABS: Chloride 104 mmol/L (98-107); Potassium 4.2 mmol/L (3.5-5.1); Sodium 138 mmol/L (136-145)
[2024-08-11 11:13] LABS: Anion Gap 5 (5-15); Calcium 9.5 mg/dL (8.7-10.4); Carbon Dioxide 29 mmol/L (20-31)
[2024-08-11 11:18] LABS: BUN/Creatinine Ratio 22.8 (10.0-20.0); Blood Urea Nitrogen 18 mg/dL (9-23)
[2024-08-11 11:26] LABS: Glucose 182 mg/dL (74-106)
[2024-08-11] MEDS: ACETAMINOPHEN 325 MG TAB PO PRN (11:31)
[2024-08-11] MEDS: InsuLIN REG 1unit/0.01ml Soln (100units/ml) SC SCH (11:32)
--- NOTE | 2024-08-11 17:30 | DVHPNRES ---
Progress Note Date Seen: Aug 11, 2024 Resident Creating Document: SUSIE CHOW RESIDENT Has the PT tested + for MRSA If YES, has PT been informed?: No Medical Necessity Reason Pt with a Central, PICC or Fol: No Medical Necessity Reason History of Present Illness Karolina Hawkins is a 69-year-old female with past medical history of hypertension, diabetes type 2, chronic knee pain, degenerative joint disease, diabetic neuropathy, appendectomy, and right knee replacement who presents to the ED status post fall while transferring out from bed to her wheelchair yesterday. Patient reports that she is wheelchair-bound and does not walk. Patient reports that this his her 4th fall recently. She reports living at home with her daughter and uses oxygen on 2L at home. She reports generalized body pain states that it is 8/10 "flat like" in nature and constant. Upon examination patient has a right forehead hematoma with no laceration or bleeding noted. Patient denies any chest pain, fever, chills, lightheadedness, weakness, dizziness, recent sick contacts, shortness of breath, abdominal pain, nausea, vomiting, or diarrhea. Pmhx: hypertension, diabetes type 2, chronic knee pain, degenerative joint disease, diabetic neuropathy Past Surgical History: Appendectomy, Other (Right knee replacement) Family History: Other (Mom with Alzheimer's and ) Social History: <1 pack per day, denies alcohol or drugs, lives with her daughter PN 08/10/2024 Patient is a 69 year of female with significant patient medical history who presented to the ED after a fall and hit her head with a hematoma on her right frontal. According to the patient, she is wheel chair bound since her knee surgery over 15 years ago ( 2009). She had her wheelchair by her bed. She was trying to get into chair to go to the bathroom and she found herself on the floor. She hit her forehead on the floor and noticed a bump. She complains mild headache,but has generalized body pains for which she takes [place]. Of note, patient said earlier this year, she was admitted at a hospital in [facility] and treated for sepsis. She was in the hospital and in recovery for a total of 2 months. At [facility], her vitals: BP: 104/56, HR: 62. RR: 18. Lab work shows leukocytosis, anemia; hyperglycemia with glucose of 210-360 and A1C 9.0 PN: 08/11/2024 Patient seen and examined no the bedside. She has no major concerned. Patient concerned about an mass in her left lower quadrant. Very likely from an injection site. Soft tissue US revealed 5.2 x 1.1 x 1.3 cm nonvascular, hypoechoic lesion with internal septations in the left lower quadrant. Findings are nonspecific. A granuloma is not excluded. Patient was also seen by cardiolgy. Subjective Review of Systems Constitutional: Denies fever no chills no feeling of malaise HEENT: Denies headache, ear pain, ear discharges, conjunctivitis, nasal discharge throat pain Cardiovascular: Denies chest pain, palpitation, orthopnea, PND, or pedal edema Respiratory: Denies shortness of breath, cough cough, sputum production, hemoptysis, GI: Denies abdominal pain, nausea, vomiting, diarrhea, hematemesis, hematochezia, : Denies frequency, urgency, hematuria, Endocrine: Denies unintentional weight gain or weight loss, feeling of hot flashes, Venkat: Denies easy bruising, bleeding disorders, epistaxis Musculoskeletal:Generalized joint pains, muscle aches Psych: No evidence of depression, noel, suicidal ideation Objective vital signs Vital Sign Date Time Temp Pulse Resp B/P (MAP) Pulse Ox O2 Delivery O2 Flow Rate FiO2 08/11/24 16:33 79 16 139/64 08/11/24 13:00 98.6 95 98.6 08/11/24 12:52 Room Air* 0 21 Total Intake and Output 08/10/24 08/10/24 08/11/24 15:00 23:00 07:00 Intake Total 230 ml 400 ml 800 ml Output Total 400 ml 600 ml Balance 230 ml 0 ml 200 ml medications Current Medications Medications Dose Ordered Sig/Ibrahima Route Start Time Stop Time Status Last Admin Dose Admin Aspirin 81 mg DAILY PO 08/10/24 10:00 08/11/24 10:14 81 MG Losartan Potassium 50 mg DAILY PO 08/10/24 10:00 08/11/24 10:17 50 MG Metoprolol Tartrate 25 mg BID PO 08/09/24 22:00 08/11/24 10:15 25 MG Amlodipine Besylate 10 mg DAILY PO 08/09/24 12:09 08/11/24 10:17 10 MG Atorvastatin Calcium 40 mg HS PO 08/09/24 22:00 08/10/24 21:53 40 MG Levetiracetam 250 mg BID PO 08/09/24 22:00 08/10/24 21:55 250 MG Nortriptyline HCl 75 mg BID PO 08/09/24 22:00 08/11/24 10:11 75 MG Diagnostic Test (Pha) 1 strip ACHS 08/09/24 11:30 08/11/24 17:05 1 STRIP Insulin Human Regular ACHS SC 08/09/24 11:30 08/11/24 17:04 6 UNITS Dextrose 50 ml UD PRN IV 08/09/24 11:30 Ondansetron HCl 4 mg Q4HP PRN IV 08/09/24 11:30 08/09/24 21:38 4 MG Acetaminophen 650 mg Q6HP PRN PO 08/09/24 11:30 08/11/24 11:31 650 MG Morphine Sulfate 2 mg Q4HPRN PRN IV 08/09/24 11:30 08/11/24 16:03 2 MG Nitroglycerin 0.4 mg Q5MINP PRN SL 08/09/24 11:30 Morphine Sulfate 2 mg Q30M PRN IV 08/09/24 11:30 Albuterol 2.5 mg Q4HPRN PRN NEB 08/09/24 12:00 08/09/24 19:56 2.5 MG Ipratropium [place] 0.5 mg Q4HPRN PRN NEB 08/09/24 12:00 08/09/24 19:55 0.5 MG Clopidogrel Bisulfate 75 mg DAILY PO 08/10/24 10:00 08/11/24 10:12 75 MG Pantoprazole Sodium 40 mg DAILY IV 08/09/24 17:00 08/10/24 08:15 40 MG Gabapentin 100 mg DAILY PO 08/11/24 10:00 08/11/24 10:17 100 MG Acetaminophen/ Hydrocodone Bitart 1 tab Q8HP PRN PO 08/10/24 17:45 08/11/24 06:11 1 TAB Insulin Glargine 30 units HS SC 08/11/24 07:15 Insulin Human Regular 5 units AC SC 08/11/24 11:30 08/11/24 17:05 5 UNITS Examination General Appearance: Alert, Oriented X3, Cooperative, No acute distress HEENT: Atraumatic, PERRLA, EOMI, Mucous membrane moist/pink, No teeth Respiratory: Clear to auscultation, Normal air movement Cardiovascular: Regular rate, Normal S1, Normal S2, No murmurs, no chest wall tenderness Abdominal: NO distention, no tenderness, bowel sounds present, no scars noted Extremities: No clubbing, No cyanosis, No edema, Normal pulses, No tenderness/swelling Skin: No rashes, No breakdown, No significant lesion Neuro: wheel chair bound over 16 years. normal speech, Strength at 5/5 2 ext, Normal tone, Sensation intact, Cranial nerves 3-12 NL, Reflexes 2+ Psych/Mental Status: Mental status NL, Mood NL laboratory and microbiology Laboratory Tests 08/11/24 10:20 Test 08/11/24 10:20 Range/Units Serum Glucose 182 H 74-106 mg/dL Microbiology Date/Time Source Procedure Growth Status 08/09/24 12:30 Voided Urine Urine Culture - Final Enterococcus faecalis Complete 08/09/24 11:53 Blood Blood Culture - Preliminary NO GROWTH AFTER 48 HOURS OF INCUBATION. Resulted Problem List/Assessment/Plan Problem List/Assessment/Plan Assessment -- Fell out of bed secondary to Acute Hypotension. --> fell when trying to get into her wheelchair --> Wheelchair bound --> Stopped Tizanidine --> get orthostatic bp --> Monitor BP closely Episodes of sinus bradycardia. --> Improved Cardiomegaly - rule out structural heart disease. --> Echo EF : 70% AND IS NORMAL Uncontrolled diabetes type 2 --> A1c: 9.0 --> Blood glucose 210--360 --> lantus 25 unit HS --> mild sliding scale --> peripheral neuropathy vs degenerative joint disease vs orthostatic Diabetic neuropathy --> Gabapetin Obesity Grade I --> BMI: 34.4 --> healthy diet Hypertension --> Continue home medication Chronic knee pain --> Degenerative joint disease --> [place] 10-325 tid prn for pain management Nonvascular 5.2 x 1.1 x 1.3 cm nonvascular, hypoechoic lesion with internal septations in the left lower quadrant. --> Findings are nonspecific. --> A granuloma is not exclude S/P Appendectomy S/p right knee surgery Stopped the Seizure medication Care discussed for 18 minutes: Full code Case and plan discussed with Dr. Chu Plan discussed with: Patient My Orders My Orders Orders - SUSIE CHOW Procedure Category Date Status Time Hydrocodone-Acet PHA 08/10/24 In Process 10/325mg Tab ([place] 17:45 Insulin Lantus PHA 08/11/24 In Process (Glargine) (Lantus) 07:15 Insulin R (Human) PHA 08/11/24 In Process (Insulin R) 11:30 Cardiac DIET 08/11/24 Transmitted Diet-2gna,Lofat,Lochol Dinner Insulin Lantus PHA 08/11/24 Transmitted (Glargine) (Lantus) 22:00 Date of Service: Aug 11, 2024 Billing Provider: AUGIE CHU MD Common Visit Codes: [id number] INP/OBS CARE(HIGH) SUSIE CHOW RESIDENT Aug 11, 2024 17:29 AUGIE CHU MD Aug 13, 2024 22:19
--- NOTE | 2024-08-11 19:00 | DVH ---
COMPLETE ABDOMINAL ULTRASOUND HISTORY: rule out granuloma TECHNIQUE: Grayscale and color-flow Doppler ultrasound examination of the abdomen was performed. COMPARISON: None Findings/Impression: 5.2 x 1.1 x 1.3 cm nonvascular, hypoechoic lesion with internal septations in the left lower quadran t. Findings are nonspecific. A granuloma is not excluded.
--- NOTE | 2024-08-11 23:05 | DVHPN2 ---
Progress Note - Dictate Date Seen: Aug 11, 2024 Has the PT tested + for MRSA If YES, has PT been informed?: No Medical Necessity Reason Pt with a Central, PICC or Fol: No Subjective Patient was seen and evaluated in follow up. No overnight events. Patient is resting in bed. Patient is on 1 LPM NC. Abdominal US shows a 5.2 x 1.1 x 1.3 cm nonvascular, hypoechoic lesion with internal septations in the left lower quadrant. Findings are nonspecific. Urine culture growing enterococcus faecalis. Telemetry reviewed. vital signs Vital Sign Date Time Temp Pulse Resp B/P (MAP) Pulse Ox O2 Delivery O2 Flow Rate FiO2 08/11/24 21:19 70 141/76 08/11/24 20:57 99.1 18 93 99.1 08/11/24 18:42 Nasal Cannula 1.0 08/11/24 18:42 24 Total Intake and Output 08/10/24 08/10/24 08/11/24 15:00 23:00 07:00 Intake Total 230 ml 400 ml 800 ml Output Total 400 ml 600 ml Balance 230 ml 0 ml 200 ml medications Current Medications Medications Dose Ordered Sig/Ibrahima Route Start Time Stop Time Status Last Admin Dose Admin Aspirin 81 mg DAILY PO 08/10/24 10:00 08/11/24 10:14 81 MG Losartan Potassium 50 mg DAILY PO 08/10/24 10:00 08/11/24 10:17 50 MG Metoprolol Tartrate 25 mg BID PO 08/09/24 22:00 08/11/24 21:19 25 MG Amlodipine Besylate 10 mg DAILY PO 08/09/24 12:09 08/11/24 10:17 10 MG Atorvastatin Calcium 40 mg HS PO 08/09/24 22:00 08/11/24 21:04 40 MG Levetiracetam 250 mg BID PO 08/09/24 22:00 08/11/24 21:06 250 MG Nortriptyline HCl 75 mg BID PO 08/09/24 22:00 08/11/24 21:06 75 MG Diagnostic Test (Pha) 1 strip ACHS 08/09/24 11:30 08/11/24 21:26 1 STRIP Insulin Human Regular ACHS SC 08/09/24 11:30 08/11/24 21:59 4 UNITS Dextrose 50 ml UD PRN IV 08/09/24 11:30 Ondansetron HCl 4 mg Q4HP PRN IV 08/09/24 11:30 08/09/24 21:38 4 MG Acetaminophen 650 mg Q6HP PRN PO 08/09/24 11:30 08/11/24 11:31 650 MG Morphine Sulfate 2 mg Q4HPRN PRN IV 08/09/24 11:30 08/11/24 16:03 2 MG Nitroglycerin 0.4 mg Q5MINP PRN SL 08/09/24 11:30 Morphine Sulfate 2 mg Q30M PRN IV 08/09/24 11:30 Albuterol 2.5 mg Q4HPRN PRN NEB 08/09/24 12:00 08/09/24 19:56 2.5 MG Ipratropium [place] 0.5 mg Q4HPRN PRN NEB 08/09/24 12:00 08/09/24 19:55 0.5 MG Clopidogrel Bisulfate 75 mg DAILY PO 08/10/24 10:00 08/11/24 10:12 75 MG Pantoprazole Sodium 40 mg DAILY IV 08/09/24 17:00 08/10/24 08:15 40 MG Gabapentin 100 mg DAILY PO 08/11/24 10:00 08/11/24 10:17 100 MG Acetaminophen/ Hydrocodone Bitart 1 tab Q8HP PRN PO 08/10/24 17:45 08/11/24 21:03 1 TAB Insulin Human Regular 5 units AC SC 08/11/24 11:30 08/11/24 17:05 5 UNITS Insulin Glargine 30 units HS SC 08/11/24 22:00 08/11/24 21:59 30 UNITS objective GENERAL: Alert and oriented x 3. No acute distress. EYES: PERRL, EOMI. Anicteric. HENT: Moist mucous membranes. LUNGS: Clear to auscultation bilaterally. CARDIOVASCULAR: Regular rate and rhythm. ABDOMEN: Soft, non-tender and non-distended. EXTREMITIES: No edema. NEUROLOGIC: No focal neurological deficits. SKIN: Warm, dry. Left forehead hematoma laboratory and microbiology Laboratory Tests 08/11/24 10:20 Test 08/11/24 10:20 Range/Units Serum Glucose 182 H 74-106 mg/dL Problem List Episodes of sinus bradycardia. Cardiomegaly - rule out structural heart disease. Fall out of bed. Acute Hypotension. Diabetes type 2. History of CVA. Chronic lower back pain. Obesity. Assessment/Plan Continued all current supportive medical care. Morphine and [place] for pain management. Aspirin, Lipitor, Plavix, Metoprolol. Amlodipine. GI prophylactics. Additional plan as per the hospital course. Plan discussed with: Patient JUAN BORREGO MD Aug 11, 2024 23:05
[2024-08-12] VITALS (11 sets, daily range): BP systolic 94–148; BP diastolic 55–92; PULSE 61–91; RESP 16–19; TEMP 97.3–99; O2SAT 92–98
[2024-08-12] MEDS: LOSARTAN POTASSIUM 25 MG TAB PO SCH (09:51)
[2024-08-12] MEDS: LACTULOSE 20Gm/30ML SOLN PO ONE (17:09)
--- NOTE | 2024-08-12 22:31 | DVHPN2 ---
Progress Note - Dictate Date Seen: Aug 12, 2024 Has the PT tested + for MRSA If YES, has PT been informed?: No Medical Necessity Reason Pt with a Central, PICC or Fol: No Subjective Patient was seen and evaluated in follow up. No overnight events. Patient is now on room air. BS are in the 150s-200s. Prelim blood cultures are negative for growth. Telemetry reviewed. vital signs Vital Sign Date Time Temp Pulse Resp B/P (MAP) Pulse Ox O2 Delivery O2 Flow Rate FiO2 08/12/24 21:00 98.0 86 19 111/61 (78) 96 98.0 08/12/24 10:00 Room Air* 0 21 Total Intake and Output 08/11/24 08/11/24 08/12/24 15:00 23:00 07:00 Intake Total 480 ml 549 ml 600 ml Output Total 1700 ml 1850 ml Balance 480 ml -1151 ml -1250 ml medications Current Medications Medications Dose Ordered Sig/Ibrahima Route Start Time Stop Time Status Last Admin Dose Admin Aspirin 81 mg DAILY PO 08/10/24 10:00 08/12/24 09:49 81 MG Metoprolol Tartrate 25 mg BID PO 08/09/24 22:00 08/12/24 09:51 25 MG Amlodipine Besylate 10 mg DAILY PO 08/09/24 12:09 Hold 08/11/24 10:17 10 MG Atorvastatin Calcium 40 mg HS PO 08/09/24 22:00 08/11/24 21:04 40 MG Nortriptyline HCl 75 mg BID PO 08/09/24 22:00 08/12/24 09:50 75 MG Diagnostic Test (Pha) 1 strip ACHS 08/09/24 11:30 08/12/24 17:14 1 STRIP Insulin Human Regular ACHS SC 08/09/24 11:30 08/12/24 17:13 2 UNITS Dextrose 50 ml UD PRN IV 08/09/24 11:30 Ondansetron HCl 4 mg Q4HP PRN IV 08/09/24 11:30 08/09/24 21:38 4 MG Acetaminophen 650 mg Q6HP PRN PO 08/09/24 11:30 08/12/24 08:35 650 MG Nitroglycerin 0.4 mg Q5MINP PRN SL 08/09/24 11:30 Clopidogrel Bisulfate 75 mg DAILY PO 08/10/24 10:00 08/12/24 09:50 75 MG Pantoprazole Sodium 40 mg DAILY IV 08/09/24 17:00 08/12/24 09:49 40 MG Gabapentin 100 mg DAILY PO 08/11/24 10:00 08/12/24 09:50 100 MG Acetaminophen/ Hydrocodone Bitart 1 tab Q8HP PRN PO 08/10/24 17:45 08/12/24 17:09 1 TAB Insulin Human Regular 5 units AC SC 08/11/24 11:30 08/12/24 17:14 5 UNITS Insulin Glargine 30 units HS SC 08/11/24 22:00 08/11/24 21:59 30 UNITS Losartan Potassium 25 mg DAILY PO 08/12/24 10:00 08/12/24 09:51 25 MG objective GENERAL: Alert and oriented x 3. No acute distress. EYES: PERRL, EOMI. Anicteric. HENT: Moist mucous membranes. LUNGS: Clear to auscultation bilaterally. CARDIOVASCULAR: Regular rate and rhythm. ABDOMEN: Soft, non-tender and non-distended. EXTREMITIES: No edema. NEUROLOGIC: No focal neurological deficits. SKIN: Warm, dry. Left forehead hematoma laboratory and microbiology Laboratory Tests 08/11/24 10:20 Test 08/11/24 10:20 Range/Units Serum Glucose 182 H 74-106 mg/dL Problem List Episodes of sinus bradycardia. Cardiomegaly - rule out structural heart disease. Fall out of bed. Acute Hypotension. Diabetes type 2. History of CVA. Chronic lower back pain. Obesity. Assessment/Plan Continued all current supportive medical care. Morphine and [place] for pain management. Aspirin, Lipitor, Plavix, Metoprolol. Amlodipine, Losartan. GI prophylactics. Additional plan as per the hospital course. Dietary Evaluation Review Comments: 1) Continue current POC 2) Refer CDE on DC Expected Outcomes/Goals: To meet >75% estimated needs Fu 3-5 days Plan discussed with: Patient JUAN BORREGO MD Aug 12, 2024 21:25
--- NOTE | 2024-08-12 23:26 | DVHPNRES ---
Progress Note Date Seen: Aug 12, 2024 Resident Creating Document: SUSIE CHOW RESIDENT Has the PT tested + for MRSA If YES, has PT been informed?: No Medical Necessity Reason Pt with a Central, PICC or Fol: No Medical Necessity Reason History of Present Illness Karolina Hawkins is a 69-year-old female with past medical history of hypertension, diabetes type 2, chronic knee pain, degenerative joint disease, diabetic neuropathy, appendectomy, and right knee replacement who presents to the ED status post fall while transferring out from bed to her wheelchair yesterday. Patient reports that she is wheelchair-bound and does not walk. Patient reports that this his her 4th fall recently. She reports living at home with her daughter and uses oxygen on 2L at home. She reports generalized body pain states that it is 8/10 "flat like" in nature and constant. Upon examination patient has a right forehead hematoma with no laceration or bleeding noted. Patient denies any chest pain, fever, chills, lightheadedness, weakness, dizziness, recent sick contacts, shortness of breath, abdominal pain, nausea, vomiting, or diarrhea. Pmhx: hypertension, diabetes type 2, chronic knee pain, degenerative joint disease, diabetic neuropathy Past Surgical History: Appendectomy, Other (Right knee replacement) Family History: Other (Mom with Alzheimer's and ) Social History: <1 pack per day, denies alcohol or drugs, lives with her daughter PN 08/10/2024 Patient is a 69 year of female with significant patient medical history who presented to the ED after a fall and hit her head with a hematoma on her right frontal. According to the patient, she is wheel chair bound since her knee surgery over 15 years ago ( 2009). She had her wheelchair by her bed. She was trying to get into chair to go to the bathroom and she found herself on the floor. She hit her forehead on the floor and noticed a bump. She complains mild headache,but has generalized body pains for which she takes [place]. Of note, patient said earlier this year, she was admitted at a hospital in [facility] and treated for sepsis. She was in the hospital and in recovery for a total of 2 months. At [facility], her vitals: BP: 104/56, HR: 62. RR: 18. Lab work shows leukocytosis, anemia; hyperglycemia with glucose of 210-360 and A1C 9.0 PN: 08/11/2024 Patient seen and examined no the bedside. She has no major concerned. Patient concerned about an mass in her left lower quadrant. Very likely from an injection site. Soft tissue US revealed 5.2 x 1.1 x 1.3 cm nonvascular, hypoechoic lesion with internal septations in the left lower quadrant. Findings are nonspecific. A granuloma is not excluded. Patient was also seen by cardiology. PN: 08/12/2024 Patient seen and examined. Patient doing better. Blood pressure is improved. Most likely patients fall is secondary to orthostatic hypotension. Being adjusting her blood pressure medications. Patient want to go to a snf. arrangement are being made for that. Subjective Review of Systems Constitutional: Denies fever no chills no feeling of malaise HEENT: Denies headache, ear pain, ear discharges, conjunctivitis, nasal discharge throat pain Cardiovascular: Denies chest pain, palpitation, orthopnea, PND, or pedal edema Respiratory: Denies shortness of breath, cough cough, sputum production, hemoptysis, GI: Denies abdominal pain, nausea, vomiting, diarrhea, hematemesis, hematochezia, : Denies frequency, urgency, hematuria, Endocrine: Denies unintentional weight gain or weight loss, feeling of hot flashes, Venkat: Denies easy bruising, bleeding disorders, epistaxis Musculoskeletal:Generalized joint pains, muscle aches Psych: No evidence of depression, noel, suicidal ideation Objective vital signs Vital Sign Date Time Temp Pulse Resp B/P (MAP) Pulse Ox O2 Delivery O2 Flow Rate FiO2 08/12/24 21:37 86 111/61 08/12/24 21:00 98.0 19 96 98.0 08/12/24 10:00 Room Air* 0 21 Total Intake and Output 08/11/24 08/11/24 08/12/24 15:00 23:00 07:00 Intake Total 480 ml 549 ml 600 ml Output Total 1700 ml 1850 ml Balance 480 ml -1151 ml -1250 ml medications Current Medications Medications Dose Ordered Sig/Ibrahima Route Start Time Stop Time Status Last Admin Dose Admin Aspirin 81 mg DAILY PO 08/10/24 10:00 08/12/24 09:49 81 MG Metoprolol Tartrate 25 mg BID PO 08/09/24 22:00 08/12/24 21:37 25 MG Amlodipine Besylate 10 mg DAILY PO 08/09/24 12:09 Hold 08/11/24 10:17 10 MG Atorvastatin Calcium 40 mg HS PO 08/09/24 22:00 08/12/24 21:35 40 MG Nortriptyline HCl 75 mg BID PO 08/09/24 22:00 08/12/24 22:01 75 MG Diagnostic Test (Pha) 1 strip ACHS 08/09/24 11:30 08/12/24 21:39 1 STRIP Insulin Human Regular ACHS SC 08/09/24 11:30 08/12/24 21:44 4 UNITS Dextrose 50 ml UD PRN IV 08/09/24 11:30 Ondansetron HCl 4 mg Q4HP PRN IV 08/09/24 11:30 08/09/24 21:38 4 MG Acetaminophen 650 mg Q6HP PRN PO 08/09/24 11:30 08/12/24 08:35 650 MG Nitroglycerin 0.4 mg Q5MINP PRN SL 08/09/24 11:30 Clopidogrel Bisulfate 75 mg DAILY PO 08/10/24 10:00 08/12/24 09:50 75 MG Pantoprazole Sodium 40 mg DAILY IV 08/09/24 17:00 08/12/24 09:49 40 MG Gabapentin 100 mg DAILY PO 08/11/24 10:00 08/12/24 09:50 100 MG Acetaminophen/ Hydrocodone Bitart 1 tab Q8HP PRN PO 08/10/24 17:45 08/12/24 17:09 1 TAB Insulin Human Regular 5 units AC SC 08/11/24 11:30 08/12/24 17:14 5 UNITS Insulin Glargine 30 units HS SC 08/11/24 22:00 08/12/24 21:43 30 UNITS Losartan Potassium 25 mg DAILY PO 08/12/24 10:00 08/12/24 09:51 25 MG Examination General Appearance: Alert, Oriented X3, Cooperative, No acute distress HEENT: Atraumatic, PERRLA, EOMI, Mucous membrane moist/pink, No teeth Respiratory: Clear to auscultation, Normal air movement Cardiovascular: Regular rate, Normal S1, Normal S2, No murmurs, no chest wall tenderness Abdominal: NO distention, no tenderness, bowel sounds present, no scars noted Extremities: No clubbing, No cyanosis, No edema, Normal pulses, No tenderness/swelling Skin: No rashes, No breakdown, No significant lesion Neuro: wheel chair bound over 16 years. normal speech, Strength at 5/5 2 ext, Normal tone, Sensation intact, Cranial nerves 3-12 NL, Reflexes 2+ Psych/Mental Status: Mental status NL, Mood NL laboratory and microbiology Laboratory Tests 08/11/24 10:20 Test 08/11/24 10:20 Range/Units Serum Glucose 182 H 74-106 mg/dL Microbiology Date/Time Source Procedure Growth Status 08/09/24 12:30 Voided Urine Urine Culture - Final Enterococcus faecalis Complete 08/09/24 11:53 Blood Blood Culture - Preliminary NO GROWTH AFTER 72 HOURS OF INCUBATION. Resulted Problem List/Assessment/Plan Problem List/Assessment/Plan Assessment Fell out of bed likely secondary to Acute Hypotension. --> fell when trying to get into her wheelchair --> Wheelchair bound --> Stopped Tizanidine --> get orthostatic bp --> Monitor BP closely Episodes of sinus bradycardia. --> Improved Cardiomegaly - rule out structural heart disease. --> Echo EF : 70% AND IS NORMAL Uncontrolled diabetes type 2 --> A1c: 9.0 --> Blood glucose 210--360 --> lantus 25 unit HS --> mild sliding scale --> peripheral neuropathy vs degenerative joint disease vs orthostatic Diabetic neuropathy --> Gabapetin Obesity Grade I --> BMI: 34.4 --> healthy diet Hypertension --> Continue home medication Chronic knee pain --> Degenerative joint disease --> [place] 10-325 tid prn for pain management Nonvascular 5.2 x 1.1 x 1.3 cm nonvascular, hypoechoic lesion with internal septations in the left lower quadrant. --> Findings are nonspecific. --> A granuloma is not exclude S/P Appendectomy S/p right knee surgery Stopped the Seizure medication Care discussed for 16 minutes: Full code Case and plan discussed with Dr. Ethan Tavera discussed with: Patient My Orders My Orders Orders - SUSIE CHOW RESIDENT Procedure Category Date Status Time Losartan Tablet PHA 08/12/24 In Process (Cozaar Tablet) 10:00 Dietary Evaluation Review Comments: 1) Continue current POC 2) Refer CDE on DC Expected Outcomes/Goals: To meet >75% estimated needs Fu 3-5 days Date of Service: Aug 12, 2024 Billing Provider: AUGIE CHU MD Common Visit Codes: [id number] INP/OBS CARE(HIGH) SUSIE CHOW RESIDENT Aug 12, 2024 23:26 AUGIE CHU MD Aug 13, 2024 22:28
[2024-08-13] VITALS (9 sets, daily range): BP systolic 105–139; BP diastolic 55–73; PULSE 58–92; RESP 17–20; TEMP 97.5–98.5; O2SAT 96–98
--- NOTE | 2024-08-13 13:57 | DVHDSRES ---
Discharge Summary Date of Admission Resident Creating Document: SUSIE CHOW Aug 09, 2024 at 11:29 Date of Discharge: Aug 13, 2024 Admitting Diagnosis s/p fall Labs/Diagnostic Data: PATIENT: BEN HAWKINST: [id number] UNIT: [id number] : 1955 LOC: [facility] ROOM / BED: 0290T / A AGE / SEX: 69 / F ADM STATUS: ADM IN SERVICE 1725 ORDERING PHYSICIAN: SUSIE CHOW PROCEDURE(s): ABDL - ABDOMEN LIMITED REASON: rule out granuloma ORDER NUMBER(s): [id number], ACCESSION NUMBER(s): [id number] COMPLETE ABDOMINAL ULTRASOUND HISTORY: rule out granuloma TECHNIQUE: Grayscale and color-flow Doppler ultrasound examination of the abdomen was performed. COMPARISON: None Findings/Impression: 5.2 x 1.1 x 1.3 cm nonvascular, hypoechoic lesion with internal septations in the left lower quadrant. Findings are nonspecific. A granuloma is not excluded. ATED BY: CONNIE RUTLEDGE DO DICTATED DATE/TIME: 08/11/24 1857 PATIENT: KAROLINA HAWKINSACCT: [id number] UNIT: [id number] : 1955 LOC: ER ROOM / BED: / AGE / SEX: 69 / F ADM STATUS: REG ER SERVICE 0053 ORDERING PHYSICIAN: HUMERA MCKINNON MD PROCEDURE(s): HWOCT - HEAD WITHOUT CONTRAST REASON: syncope ORDER NUMBER(s): [id number], ACCESSION NUMBER(s): [id number] EXAM: CT HEAD WITHOUT CONTRAST INDICATION: syncope TECHNIQUE: CT of the head without intravenous contrast. Radiation Dose : 1. Head: CT Dose: CTDI volume is 65 mGy. Dose-length product is 1410 mGy*cm The dose indicators for CT are the volume Computed Tomography (CT) Dose Index (CTDIvol) and the Dose Length Product (DLP), and are measured in units of mGy and mGy-cm, respectively. These indicators are not patient dose, but values generated from the CT scanner acquisition factors. The report includes radiation exposure data for exposures received during this examination. COMPARISON: CT HEAD WITHOUT CONTRAST on DOS: 03/29/24 FINDINGS: There is no evidence of acute intracranial hemorrhage, extra-axial collection, mass effect, midline shift, herniation or hydrocephalus. The ventricles, sulci and cisterns are age appropriate. The purvis-white differentiation is intact. Patchy periventricular and subcortical white matter hypoattenuation is nonspecific but may be related to small vessel ischemic disease. The visualized paranasal sinuses and mastoid air cells are clear. The surrounding soft tissues and osseous structures are unremarkable. IMPRESSION: 1. No acute intracranial abnormality. Radiation optimization: All CT scans at this facility use at least one of these dose optimization techniques: automated exposure control mA and/or kV adjustment per patient size (includes targeted exams where dose is matched to clinical indication) or iterative reconstruction. ATED BY: MADELYN PADRON MD DICTATED DATE/TIME: 08/09/24 0148 PATIENT: KAROLINA HAWKINSACCT: [id number] UNIT: [id number] : 1955 LOC: ER ROOM / BED: / AGE / SEX: 69 / F ADM STATUS: REG ER SERVICE ORDERING PHYSICIAN: HUMERA MCKINNON MD PROCEDURE(s): CXRP - CHEST PORTABLE REASON: syncope ORDER NUMBER(s): [id number], ACCESSION NUMBER(s): [id number] CHEST RADIOGRAPH Indication: syncope Technique: Single frontal view of the chest was obtained COMPARISON: XY CHEST PORTABLE on DOS: 03/29/24 FINDINGS: Lines and Tubes: None Lungs: Clear Pleura: No effusion. No pneumothorax. Cardiomediastinal contours: Cardiomegaly. Atherosclerotic vascular calcifications. Bones: Unremarkable IMPRESSION: 1. No acute disease. 2. Cardiomegaly. ATED BY: DERIC TORRES MD DICTATED DATE/TIME: 08/09/24 0151 Laboratory Results Test 08/13/24 11:54 08/11/24 10:20 08/10/24 10:20 08/09/24 12:30 POC Glucose 261 mg/dl (70-106) White Blood Count 6.8 10^3/uL (4.4-10.8) Red Blood Count 4.04 10^6/uL (4.0-5.20) Hemoglobin 11.2 g/dL (12.2-16.2) Hematocrit 33.6 % (36.0-46.0) Mean Corpuscular Volume 83.2 fL (80.0-100.0) Mean Corpuscular Hemoglobin 27.7 pg (28.0-32.0) Mean Corpuscular Hemoglobin Concent 33.4 g/dL (32.0-36.0) Red Cell Distribution Width 16.2 % (11.8-14.3) Platelet Count 315 10^3/uL (140-450) Mean Platelet Volume 7.7 fL (6.9-10.8) Neutrophils (%) (Auto) 48.9 % (37.0-80.0) Lymphocytes (%) (Auto) 37.6 % (10.0-50.0) Monocytes (%) (Auto) 10.1 % (0.0-12.0) Eosinophils (%) (Auto) 2.7 % (0.0-7.0) Basophils (%) (Auto) 0.7 % (0.0-2.0) Neutrophils # (Auto) 3.3 10 ^3/uL (1.6-8.6) Lymphocytes # (Auto) 2.5 10 ^3/uL (0.4-5.4) Monocytes # (Auto) 0.7 10 ^3/uL (0-1.3) Eosinophils # (Auto) 0.2 10 ^3/uL (0-0.8) Basophils # (Auto) 0.1 10 ^3/uL (0-0.2) Nucleated Red Blood Cells 0.1 % Sodium Level 138 mmol/L (136-145) Potassium Level 4.2 mmol/L (3.5-5.1) Chloride Level 104 mmol/L (98-107) Carbon Dioxide Level 29 mmol/L (20-31) Anion Gap 5 (5-15) Blood Urea Nitrogen 18 mg/dL (9-23) Creatinine 0.79 mg/dL (0.550-1.02) Glomerular Filtration Rate Calc 82 mL/min (>90) BUN/Creatinine Ratio 22.8 (10.0-20.0) Serum Glucose 182 mg/dL (74-106) Calcium Level 9.5 mg/dL (8.7-10.4) Prothrombin Time 11.3 sec (9.3-11.8) Prothrombin Time INR 1.07 (0.9-1.15) Activated Partial Thromboplast Time 27.2 SEC (24.5-34.5) Total Bilirubin 0.4 mg/dL (0.2-1.0) Aspartate Amino Transferase (AST) 48 U/L (13-40) Alanine Aminotransferase (ALT) 52 U/L (7-40) Alkaline Phosphatase 115 U/L (46-116) Total Protein 6.8 g/dL (5.7-8.2) Albumin 3.6 g/dL (3.2-4.8) Urine Color Light-yellow (Yellow) Urine Clarity Clear (Clear) Urine pH 6.5 (5.0-9.0) Urine Specific [place] 1.016 (1.001-1.035) Urine Protein Negative (Negative) Urine Ketones Negative (Negative) Urine Blood Negative /uL (Negative) Urine Nitrite Negative (Negative) Urine Bilirubin Negative (Negative) Urine Urobilinogen Normal mg/dL (Negative) Urine Leukocyte Esterase Negative /uL (Negative) Urine RBC 2 /hpf (0 - 4) Urine Microscopic WBC 3 /HPF (0-5) Urine Squamous Epithelial Cells Few /hpf (<5) Urine Bacteria Few /hpf (None Seen) Urine Mucus Few (None Seen) Urine Glucose Normal mg/dL (Normal) Test 08/09/24 11:53 08/09/24 02:07 Lactic Acid Level 1.4 mmol/L (0.4-2.0) Hemoglobin A1c 9.0 % A1C (<5.7) Troponin I High Sensitivity < 3 ng/L (</=34) Other Laboratory Tests 08/11/24 10:20 Brief Hx & Hospital Course: History of Present Illness Karolina Hawkins is a 69-year-old female with past medical history of hypertension, diabetes type 2, chronic knee pain, degenerative joint disease, diabetic neuropathy, appendectomy, and right knee replacement who presents to the ED status post fall while transferring out from bed to her wheelchair yesterday. Patient reports that she is wheelchair-bound and does not walk. Patient reports that this his her 4th fall recently. She reports living at home with her daughter and uses oxygen on 2L at home. She reports generalized body pain states that it is 8/10 "flat like" in nature and constant. Upon examination patient has a right forehead hematoma with no laceration or bleeding noted. Patient denies any chest pain, fever, chills, lightheadedness, weakness, dizziness, recent sick contacts, shortness of breath, abdominal pain, nausea, vomiting, or diarrhea. Pmhx: hypertension, diabetes type 2, chronic knee pain, degenerative joint disease, diabetic neuropathy Past Surgical History: Appendectomy, Other (Right knee replacement) Family History: Other (Mom with Alzheimer's and ) Social History: <1 pack per day, denies alcohol or drugs, lives with her daughter Brief Hospital Course Patient is a 69 year of female with significant patient medical history who presented to the ED after a fall and hit her head with a hematoma on her right frontal. According to the patient, she is wheel chair bound since her knee surgery over 15 years ago ( 2009). She had her wheelchair by her bed. She was trying to get into chair to go to the bathroom and she found herself on the floor. She hit her forehead on the floor and noticed a bump. She complains mild headache,but has generalized body pains for which she takes [place]. Of note, patient said earlier this year, she was admitted at a hospital in [facility] and treated for sepsis. She was in the hospital and in recovery for a total of 2 months. At [facility], her vitals: BP: 104/56, HR: 62. RR: 18. Lab work shows leukocytosis, anemia; hyperglycemia with glucose of 210-360 and A1C 9.0. All imaging studies where unremarkable. Patient is on multiple blood pressure medications where we gradually adjusted to prevent her from having orthostatic hypotension. Her blood sugar is improving on lantus 30 and regular in 5 with room for up titration as needed. Patient mentioned about not being treated well at home. Thus will find a place for her to go after her going to SNF for a rehab. Review of Systems Constitutional: Denies fever no chills no feeling of malaise HEENT: Denies headache, ear pain, ear discharges, conjunctivitis, nasal discharge throat pain Cardiovascular: Denies chest pain, palpitation, orthopnea, PND, or pedal edema Respiratory: Denies shortness of breath, cough cough, sputum production, hemoptysis, GI: Denies abdominal pain, nausea, vomiting, diarrhea, hematemesis, hematochezia, : Denies frequency, urgency, hematuria, Endocrine: Denies unintentional weight gain or weight loss, feeling of hot flashes, Venkat: Denies easy bruising, bleeding disorders, epistaxis Musculoskeletal:Generalized joint pains, muscle aches Psych: No evidence of depression, noel, suicidal ideation Examination General Appearance: Alert, Oriented X3, Cooperative, No acute distress HEENT: Atraumatic, PERRLA, EOMI, Mucous membrane moist/pink, No teeth Respiratory: Clear to auscultation, Normal air movement Cardiovascular: Regular rate, Normal S1, Normal S2, No murmurs, no chest wall tenderness Abdominal: NO distention, no tenderness, bowel sounds present, no scars noted Extremities: No clubbing, No cyanosis, No edema, Normal pulses, No tenderness/swelling Skin: No rashes, No breakdown, No significant lesion Neuro: wheel chair bound over 16 years. normal speech, Strength at 5/5 2 ext, Normal tone, Sensation intact, Cranial nerves 3-12 NL, Reflexes 2+ Psych/Mental Status: Mental status NL, Mood NL Diagnoses Fell out of bed likely secondary to Acute Hypotension. Episodes of sinus bradycardia. Cardiomegaly - rule out structural heart disease. Uncontrolled diabetes type 2 Obesity Grade I, BMI: 34.4 Hypertension Chronic knee pain Nonvascular 5.2 x 1.1 x 1.3 cm nonvascular, hypoechoic lesion with internal septations in the left lower quadrant on US. S/P Appendectomy S/p right knee surgery Stopped the Seizure medication Discharge plan Patient is hemodynamically stable Going to SNF for rehab Advised to follow up at the D/C clinic in 2 weeks Medication adherences to the new doses Advised to report to the ED is noticed any changes Discharge plan discussed +Dr. Long Consults/Reason for consult Reason for Consultation Bradycardia Condition at Discharge: Good Final Diagnosis/Problems List Fell out of bed likely secondary to Acute Hypotension. Episodes of sinus bradycardia. Cardiomegaly - rule out structural heart disease. Uncontrolled diabetes type 2 Obesity Grade I, BMI: 34.4 Hypertension Chronic knee pain Nonvascular 5.2 x 1.1 x 1.3 cm nonvascular, hypoechoic lesion with internal septations in the left lower quadrant. S/P Appendectomy S/p right knee surgery Stopped the Seizure medication Discharge Disposition: Nursing Home Facility Discharge Instruct/Medications Diet: Cardiac 2g Na,low cholest Diet comment: DIABETES DIET Activity: No Restrictions, As Tolerated Follow Up/Referral: snf FOR 2 WEEKS for rehab Medications: Blood pressure medication Discharge Statement: "Patient was advised to return to the ER or call 911 if any headaches, dizziness, shortness of breath, chest pain, abdominal pain, bleeding, fevers, or worsening of medical condition. Patient was counseled about treatment plan, medications, possible side effects, patientverbalized understanding. All questions were answered to the best of my ability. This discharge took greater then 30 minutes in planning, reviewing documentation, counseling the patient, and discussing with other team members." DME: Diagnosis: obesity, bedbound ASSESSMENT ASSESSMENT Assessment Fell out of bed likely secondary to Acute Hypotension. Episodes of sinus bradycardia. Cardiomegaly - rule out structural heart disease. Uncontrolled diabetes type 2 Obesity Grade I, BMI: 34.4 Hypertension Chronic knee pain Nonvascular 5.2 x 1.1 x 1.3 cm nonvascular, hypoechoic lesion with internal septations in the left lower quadrant. S/P Appendectomy S/p right knee surgery Stopped the Seizure medication Date of Service: Aug 13, 2024 Billing Provider: AUGIE LONG MD Common Visit Codes: 20671-WSR/[id number] DISCH DAY >30min SUSIE CHOW Aug 13, 2024 13:57 AUGIE LONG MD Aug 14, 2024 13:17
--- NOTE | 2024-08-13 22:57 | DVHPN2 ---
Progress Note - Dictate Date Seen: Aug 13, 2024 Has the PT tested + for MRSA If YES, has PT been informed?: No Medical Necessity Reason Pt with a Central, PICC or Fol: No Subjective Patient was seen and evaluated in follow up. Patient reports feeling better since admission. Patient wishes to go to SNF. GLUC 261. Telemetry reviewed. vital signs Vital Sign Date Time Temp Pulse Resp B/P (MAP) Pulse Ox O2 Delivery O2 Flow Rate FiO2 08/13/24 12:58 98.5 85 18 136/73 (94) 97 98.5 08/12/24 20:00 Room Air* 0 21 Total Intake and Output 08/12/24 08/12/24 08/13/24 15:00 23:00 07:00 Intake Total 1100 ml 820 ml Output Total 950 ml 1150 ml Balance 150 ml -330 ml medications Current Medications Medications Dose Ordered Sig/Ibrahima Route Start Time Stop Time Status Last Admin Dose Admin Aspirin 81 mg DAILY PO 08/10/24 10:00 08/13/24 09:45 81 MG Metoprolol Tartrate 25 mg BID PO 08/09/24 22:00 08/13/24 09:49 25 MG Amlodipine Besylate 10 mg DAILY PO 08/09/24 12:09 Hold 08/11/24 10:17 10 MG Atorvastatin Calcium 40 mg HS PO 08/09/24 22:00 08/12/24 21:35 40 MG Nortriptyline HCl 75 mg BID PO 08/09/24 22:00 08/13/24 09:45 75 MG Diagnostic Test (Pha) 1 strip ACHS 08/09/24 11:30 08/13/24 11:57 1 STRIP Insulin Human Regular ACHS SC 08/09/24 11:30 08/13/24 06:20 3 UNITS Dextrose 50 ml UD PRN IV 08/09/24 11:30 Ondansetron HCl 4 mg Q4HP PRN IV 08/09/24 11:30 08/09/24 21:38 4 MG Acetaminophen 650 mg Q6HP PRN PO 08/09/24 11:30 08/12/24 08:35 650 MG Nitroglycerin 0.4 mg Q5MINP PRN SL 08/09/24 11:30 Clopidogrel Bisulfate 75 mg DAILY PO 08/10/24 10:00 08/13/24 09:45 75 MG Pantoprazole Sodium 40 mg DAILY IV 08/09/24 17:00 08/13/24 09:45 40 MG Gabapentin 100 mg DAILY PO 08/11/24 10:00 08/13/24 09:45 100 MG Acetaminophen/ Hydrocodone Bitart 1 tab Q8HP PRN PO 08/10/24 17:45 08/13/24 09:48 1 TAB Insulin Human Regular 5 units AC SC 08/11/24 11:30 08/13/24 12:26 5 UNITS Insulin Glargine 30 units HS SC 08/11/24 22:00 08/12/24 21:43 30 UNITS Losartan Potassium 25 mg DAILY PO 08/12/24 10:00 08/13/24 09:47 25 MG objective GENERAL: Alert and oriented x 3. No acute distress. EYES: PERRL, EOMI. Anicteric. HENT: Moist mucous membranes. LUNGS: Clear to auscultation bilaterally. CARDIOVASCULAR: Regular rate and rhythm. ABDOMEN: Soft, non-tender and non-distended. EXTREMITIES: No edema. NEUROLOGIC: No focal neurological deficits. SKIN: Warm, dry. Left forehead hematoma laboratory and microbiology Laboratory Tests 08/11/24 10:20 Test 08/11/24 10:20 Range/Units Serum Glucose 182 H 74-106 mg/dL Problem List Episodes of sinus bradycardia. Cardiomegaly - rule out structural heart disease. Fall out of bed. Acute Hypotension. Diabetes type 2. History of CVA. Chronic lower back pain. Obesity. Assessment/Plan Continued all current supportive medical care. Morphine and [place] for pain management. Aspirin, Lipitor, Plavix, Metoprolol. Amlodipine, Losartan. GI prophylactics. Additional plan as per the hospital course. Dietary Evaluation Review Comments: 1) Continue current POC 2) Refer CDE on DC Expected Outcomes/Goals: To meet >75% estimated needs Fu 3-5 days Plan discussed with: Patient JUAN BORREGO MD Aug 13, 2024 14:18
[2024-08-14 05:00] VITALS: BP 90/53; PULSE 64; RESP 17; TEMP 97.5; O2SAT 96
[2024-08-14] MEDS: InsuLIN REG 1unit/0.01ml Soln (100units/ml) SC SCH (06:08)
[2024-08-14 08:00] VITALS: PULSE 62
[2024-08-14 08:21] VITALS: BP 92/55; PULSE 64; RESP 20; TEMP 97.8; O2SAT 97
[2024-08-14 09:00] VITALS: BP 116/73; PULSE 64; RESP 20; TEMP 97.8; O2SAT 97
[2024-08-14 10:00] VITALS: O2SAT 97
--- NOTE | 2024-08-14 22:36 | DVHPNRES ---
Progress Note Date Seen: Aug 14, 2024 Resident Creating Document: SUSIE CHOW RESIDENT Has the PT tested + for MRSA If YES, has PT been informed?: No Medical Necessity Reason Pt with a Central, PICC or Fol: No Medical Necessity Reason History of Present Illness Karolina Hawkins is a 69-year-old female with past medical history of hypertension, diabetes type 2, chronic knee pain, degenerative joint disease, diabetic neuropathy, appendectomy, and right knee replacement who presents to the ED status post fall while transferring out from bed to her wheelchair yesterday. Patient reports that she is wheelchair-bound and does not walk. Patient reports that this his her 4th fall recently. She reports living at home with her daughter and uses oxygen on 2L at home. She reports generalized body pain states that it is 8/10 "flat like" in nature and constant. Upon examination patient has a right forehead hematoma with no laceration or bleeding noted. Patient denies any chest pain, fever, chills, lightheadedness, weakness, dizziness, recent sick contacts, shortness of breath, abdominal pain, nausea, vomiting, or diarrhea. Pmhx: hypertension, diabetes type 2, chronic knee pain, degenerative joint disease, diabetic neuropathy Past Surgical History: Appendectomy, Other (Right knee replacement) Family History: Other (Mom with Alzheimer's and ) Social History: <1 pack per day, denies alcohol or drugs, lives with her daughter PN 08/10/2024 Patient is a 69 year of female with significant patient medical history who presented to the ED after a fall and hit her head with a hematoma on her right frontal. According to the patient, she is wheel chair bound since her knee surgery over 15 years ago ( 2009). She had her wheelchair by her bed. She was trying to get into chair to go to the bathroom and she found herself on the floor. She hit her forehead on the floor and noticed a bump. She complains mild headache,but has generalized body pains for which she takes [place]. Of note, patient said earlier this year, she was admitted at a hospital in [facility] and treated for sepsis. She was in the hospital and in recovery for a total of 2 months. At [facility], her vitals: BP: 104/56, HR: 62. RR: 18. Lab work shows leukocytosis, anemia; hyperglycemia with glucose of 210-360 and A1C 9.0 PN: 08/11/2024 Patient seen and examined no the bedside. She has no major concerned. Patient concerned about an mass in her left lower quadrant. Very likely from an injection site. Soft tissue US revealed 5.2 x 1.1 x 1.3 cm nonvascular, hypoechoic lesion with internal septations in the left lower quadrant. Findings are nonspecific. A granuloma is not excluded. Patient was also seen by cardiology. PN: 08/12/2024 Patient seen and examined. Patient doing better. Blood pressure is improved. Most likely patients fall is secondary to orthostatic hypotension. Being adjusting her blood pressure medications. Patient want to go to a snf. arrangement are being made for that. PN 08/14/2024 Patient was discharged to SNF yesterday. But due to transportation, she was unable to leave yessterday. Patient was picked up this morning at 10 am. She doing well. Has no complaints. Subjective Review of Systems Review of Systems Constitutional: Denies fever no chills no feeling of malaise HEENT: Denies headache, ear pain, ear discharges, conjunctivitis, nasal discharge throat pain Cardiovascular: Denies chest pain, palpitation, orthopnea, PND, or pedal edema Respiratory: Denies shortness of breath, cough cough, sputum production, hemoptysis, GI: Denies abdominal pain, nausea, vomiting, diarrhea, hematemesis, hematochezia, : Denies frequency, urgency, hematuria, Endocrine: Denies unintentional weight gain or weight loss, feeling of hot flashes, Venkat: Denies easy bruising, bleeding disorders, epistaxis Musculoskeletal:Generalized joint pains, muscle aches improved Psych: No evidence of depression, noel, suicidal ideation Objective vital signs Vital Sign Date Time Temp Pulse Resp B/P (MAP) Pulse Ox O2 Delivery O2 Flow Rate FiO2 08/14/24 10:00 97 Room Air* 0 21 08/14/24 09:00 97.8 64 20 116/73 (87) 97.8 Total Intake and Output 08/13/24 08/13/24 08/14/24 15:00 23:00 07:00 Intake Total 500 ml 1200 ml Output Total 1000 ml 1150 ml Balance -500 ml 50 ml Examination General Appearance: Alert, Oriented X3, Cooperative, No acute distress HEENT: Atraumatic, PERRLA, EOMI, Mucous membrane moist/pink, No teeth Respiratory: Clear to auscultation, Normal air movement Cardiovascular: Regular rate, Normal S1, Normal S2, No murmurs, no chest wall tenderness Abdominal: NO distention, no tenderness, bowel sounds present, no scars noted Extremities: No clubbing, No cyanosis, No edema, Normal pulses, No tenderness/swelling Skin: No rashes, No breakdown, No significant lesion Neuro: wheel chair bound over 16 years. normal speech, Strength at 5/5 2 ext, Normal tone, Sensation intact, Cranial nerves 3-12 NL, Reflexes 2+ Psych/Mental Status: Mental status NL, Mood NL laboratory and microbiology laboratory and microbiology Laboratory Tests 08/11/24 10:20 Test 08/11/24 10:20 Range/Units Serum Glucose 182 H 74-106 mg/dL Microbiology Date/Time Source Procedure Growth Status 08/10/24 01:56 Nose MRSA Screen - Final Complete 08/09/24 12:30 Voided Urine Urine Culture - Final Enterococcus faecalis Complete 08/09/24 11:53 Blood Blood Culture - Final NO GROWTH AFTER 5 DAYS OF INCUBATION. Complete Problem List/Assessment/Plan Problem List/Assessment/Plan Assessment -- Fell out of bed secondary to Acute Hypotension.--> improved --> fell when trying to get into her wheelchair --> Wheelchair bound --> Stopped Tizanidine --> get orthostatic bp --> Monitor BP closely Episodes of sinus bradycardia. --> Improved Cardiomegaly - rule out structural heart disease. --> Echo EF : 70% AND IS NORMAL Uncontrolled diabetes type 2 --> A1c: 9.0 --> Blood glucose 210--360 --> lantus 25 unit HS --> mild sliding scale --> peripheral neuropathy vs degenerative joint disease vs orthostatic Diabetic neuropathy --> Gabapetin Obesity Grade I --> BMI: 34.4 --> healthy diet Hypertension --> Continue home medication Chronic knee pain --> Degenerative joint disease --> [place] 10-325 tid prn for pain management Nonvascular 5.2 x 1.1 x 1.3 cm nonvascular, hypoechoic lesion with internal septations in the left lower quadrant. --> Findings are nonspecific. --> A granuloma is not exclude S/P Appendectomy S/p right knee surgery Stopped the Seizure medication Care discussed for 18 minutes: Full code Case and plan discussed with Dr. Chu Plan discussed with: Patient Dietary Evaluation Review Comments: 1) Continue current POC 2) Refer CDE on DC Expected Outcomes/Goals: To meet >75% estimated needs Fu 3-5 days Date of Service: Aug 14, 2024 Billing Provider: AUGIE CHU MD Common Visit Codes: [id number] INP/OBS CARE(MOD) SUSIE CHOW RESIDENT Aug 14, 2024 22:36 AUGIE CHU MD Aug 15, 2024 21:20
--- NOTE | 2024-08-14 23:03 | DVHPN2 ---
Progress Note - Dictate Date Seen: Aug 14, 2024 Has the PT tested + for MRSA If YES, has PT been informed?: No Medical Necessity Reason Pt with a Central, PICC or Fol: No Subjective Patient was seen and evaluated in follow up. Patient has no new complaints at this time. Patient denies any cardiac symptoms. Patient is cardiac stable for discharge. Telemetry reviewed. vital signs Vital Sign Date Time Temp Pulse Resp B/P (MAP) Pulse Ox O2 Delivery O2 Flow Rate FiO2 08/14/24 10:00 97 Room Air* 0 21 08/14/24 09:00 97.8 64 20 116/73 (87) 97.8 Total Intake and Output 08/13/24 08/13/24 08/14/24 15:00 23:00 07:00 Intake Total 500 ml 1200 ml Output Total 1000 ml 1150 ml Balance -500 ml 50 ml objective GENERAL: Alert and oriented x 3. No acute distress. EYES: PERRL, EOMI. Anicteric. HENT: Moist mucous membranes. LUNGS: Clear to auscultation bilaterally. CARDIOVASCULAR: Regular rate and rhythm. ABDOMEN: Soft, non-tender and non-distended. EXTREMITIES: No edema. NEUROLOGIC: No focal neurological deficits. SKIN: Warm, dry. Left forehead hematoma laboratory and microbiology Laboratory Tests 08/11/24 10:20 Test 08/11/24 10:20 Range/Units Serum Glucose 182 H 74-106 mg/dL Problem List Episodes of sinus bradycardia. Cardiomegaly - rule out structural heart disease. Fall out of bed. Acute Hypotension. Diabetes type 2. History of CVA. Chronic lower back pain. Obesity. Assessment/Plan Continued all current supportive medical care. Morphine and [place] for pain management. Aspirin, Lipitor, Plavix, Metoprolol. Amlodipine, Losartan. GI prophylactics. Additional plan as per the hospital course. Dietary Evaluation Review Comments: 1) Continue current POC 2) Refer CDE on DC Expected Outcomes/Goals: To meet >75% estimated needs Fu 3-5 days Plan discussed with: Patient JUAN BORREGO MD Aug 14, 2024 11:48
== END 2024-08-14 10:04 | DRG 315 ==
LOC: ER 00:50 → EDBD 00:50 → EDUNIT# 00:50 → ER 02:44 → OVERFLOW 11:29 → TELE-WESTW 22:15
PROVIDERS: ADMIT Student in an Organized Health Care Education/Training Program; ATTEND Student in an Organized Health Care Education/Training Program
DX: I95.89 Other hypotension (principal); E66.2 Morbid (severe) obesity with alveolar hypoventilation; J96.11 Chronic respiratory failure with hypoxia; S00.83XA Contusion of other part of head, initial encounter; E87.6 Hypokalemia; E66.9 Obesity, unspecified; D64.9 Anemia, unspecified; I11.9 Hypertensive heart disease without heart failure; G89.29 Other chronic pain; E11.40 Type 2 diabetes mellitus with diabetic neuropathy, unspecified; I45.10 Unspecified right bundle-branch block; Z86.73 Personal history of transient ischemic attack (TIA), and cerebral infarction without residual deficits; Z68.34 Body mass index [BMI] 34.0-34.9, adult; Z99.3 Dependence on wheelchair; Z90.49 Acquired absence of other specified parts of digestive tract; Z96.651 Presence of right artificial knee joint; Z82.0 Family history of epilepsy and other diseases of the nervous system; Z99.81 Dependence on supplemental oxygen; W06.XXXA Fall from bed, initial encounter; Y93.89 Activity, other specified; Y92.89 Other specified places as the place of occurrence of the external cause; Y99.8 Other external cause status
CPT/HCPCS: 36415; 70450; 71045; 76705; 80048; 80053; 81001; 82962; 83036; 83605; 84484; 85025; 85610; 85730; 87040; 87081; 87086; 87088; 87186; 93005; 93306; 94640; 96360; 97163; G0378; J1815; J2405; J2470

== ENCOUNTER 2025-02-09 18:13 | Inpatient (IN) | payer MEDICARE, MEDICAID ==
[~2025-02-09] VITALS: Ht 162.6 cm; Wt 106.6 kg
[~2025-02-09 18:13] MED LIST changes: +AMLO1TAB23 PO; +ASPI-325 PO; +ATOR40TA52 PO; +CLOP75TA70 PO; +LEVE250T78 PO; +LOSA-534 PO; +MET25T PO; +NORT75CA37 PO; +SENN-111; +TIZA-142 PO
--- NOTE | 2025-02-09 19:50 | DVH ---
CLINICAL HISTORY: right shoulder pain TECHNIQUE: 3 views of the right shoulder were obtained. COMPARISON: None FINDINGS: No acute fracture or dislocation is seen. No soft tissue abnormality is evident. There are mild degen erative changes of the acromioclavicular joint with osteophyte formation. There are mild degenerative changes of the glenohumeral joint with osteophyte formation. There is a subacromial spur. IMPRESSION: NO ACUTE RADIOGRAPHIC ABNORMALITY OF THE RIGHT SHOULDER.
--- NOTE | 2025-02-09 19:54 | DVH ---
EXAM: XY R KNEE 3V XRAY INDICATION: right knee pain TECHNIQUE: 4 views of the right knee COMPARISON: CT CT R KNEE WO CONTRAST on DOS: 03/31/24 FINDINGS/IMPRESSION: No radiographic evidence of an acute osseous abnormality. There is no acute fracture, osseous malalig nment, or aggressive focal osseous lesion. Right total knee arthroplasty. No osseous lucency along t he hardware bone interfaces. No perihardware fracture.
[2025-02-09] MEDS ORDERED: CLIN1CAP70 PO (20:36)
--- NOTE | 2025-02-09 20:36 | ED.PDOC ---
Musculoskeletal HPI Comments 69-year-old female presents to ER for pain management. Patient presents to ER VIA EMS, with past medical history significant for chronic right shoulder pain and chronic right knee pain stating that she was sent to ER by her caregiver for pain management of her chronic pain. Reports that she has been taking oxycodone as prescribed for chronic pain with slight relief and rates her current pain a 10/10 to right shoulder and right knee. Patient also reports swelling/redness to right index finger x1 day, denying any injury to this finger. Patient also endorses that her flat folder "left her to go to [place]" and is locked out of her home until Sunday. Denies fever, body aches, chills, trauma/falls or any further symptoms/complaints Chief Complaint: Upper Extremity Time Seen by MD: 18:53 Primary Care Provider: n/a Reviewed Notes: Nurses Notes, Medications, Allergies Allergies: Coded Allergies: NO KNOWN ALLERGIES (Unverified , 01/05/24) Home Meds Active Scripts Hydrocodone-Acetaminophen (Hydrocodone Bitartrate/AC 5-325 mg) 1 Tab Tab, 1 TAB PO QID PRN, #30 TAB Prov:GABRIELLA ANDUJAR MD 01/08/24 Reported Medications Clopidogrel Bisulfate (CLOPIDOGREL) 75 Mg Tab, 1 TAB PO DAILY 08/09/24 Amlodipine Besylate (Amlodipine Besylate) 10 Mg Tab, 1 TAB PO DAILY 08/09/24 Levetiracetam (Levetiracetam) 250 Mg Tab, TAB PO 08/09/24 Atorvastatin Calcium (ATORVASTATIN CALCIUM) 40 Mg Tab, 1 TAB PO 08/09/24 Losartan Potassium (Losartan Potassium) 50 Mg Tab, 1 TAB PO DAILY 08/09/24 Metoprolol Tartrate (Lopressor) 25 Mg Tb, 1 TAB PO BID 08/09/24 Aspirin (Aspirin Low Dose) 81 Mg Tab, 1 TAB PO DAILY 08/09/24 Senna (EQ NATURAL VEGETABLE LAXA) 8.6 Mg Tab 08/09/24 Tizanidine Hydrochloride (Tizanidine Hcl) 4 Mg Tab, 1 TAB PO TID 08/09/24 Nortriptyline HCl (Nortriptyline Hydrochlori) 75 Mg Cap, 1 CAP PO 08/09/24 Discontinued Scripts Clindamycin Hcl (Clindamycin Hcl) 300 Mg Cap, 300 MG PO QID for 7 Days, #28 CAP 0 Refills Prov:MIROSLAVA LOCKE 02/09/25 Information Source: Patient Mode of Arrival: EMS Past Medical History PAST MEDICAL HISTORY: DM (Poorly controlled) Past Medical History (Other): Diabetic neuropathy Chronic right shoulder pain Chronic right knee pain Surgical History (Other): Right knee replacement COMPUTER EQUIPMENT REPAIRER History: No Pertinent COMPUTER EQUIPMENT REPAIRER History Family History Family History: Unknown Social History Smoker: Non-Smoker Alcohol: Denies ETOH Use Drugs: Denies Drug Use Lives In: Home Constitutional: denies: chills, diaphoresis, fatigue, fever, malaise, sweats, weakness, others EENTM: denies: blurred vision, double vision, ear bleeding, ear discharge, ear drainage, ear pain, ear ringing, eye pain, eye redness, hearing loss, mouth pain, mouth swelling, nasal discharge, nose bleeding, nose congestion, nose pain, photophobia, tearing, throat pain, throat swelling, voice changes, others Respiratory: denies: cough, hemoptysis, orthopnea, SOB at rest, shortness of breath, SOB with excertion, stridor, wheezing, others Cardiovascular: denies: chest pain, dizzy spells, diaphoresis, Dyspnea on exertion, edema, irregular heart beat, left arm pain, lightheadedness, palpitations, PND, syncope, others Gastrointestinal: denies: abdomen distended, abdominal pain, blood streaked bowels, constipated, diarrhea, dysphagia, difficulty swallowing, hematemesis, melena, nausea, poor appetite, poor fluid intake, rectal bleeding, rectal pain, vomiting, others Genitourinary: denies: abnormal vagina bleeding, burning, dyspareunia, dysuria, flank pain, frequency, hematuria, incontinence, pain, , vagina discharge, urgency, others Neurological: denies: dizziness, fainting, headache, left sided numbness, left sided weakness, numbness, paresthesia, pre-existing deficit, right sided numbness, right sided weakness, seizure, speech problems, tingling, tremors, weakness, others Musculoskeletal: reports: others (As stated in HPI) Integumetry: reports: others (As stated in HPI) Allergic/Immunocompromised: denies: Difficulty Healing, Frequent Infections, Hives, Itching, others Hematologic/Lymphatic: denies: anemia, blood clots, easy bleeding, easy bruising, swollen glands, others Endocrine: denies: excessive hunger, excessive sweating, excessive thirst, excessive urination, flushing, intolerance to cold, intolerance to heat, unexplained weight gain, unexplained weight loss, others Psychiatric: denies: anxiety, bipolar disorder, depression, hopeless, panic disorder, schizophrenia, sleepless, suicidal, others Physical Exam General Appearance: No Apparent Distress, Obese HEENT: PERRL/EOMI Neck: Full Range of Motion, Non-Tender, Normal Respiratory: Chest Non-Tender, Lungs Clear, No Accessory Muscle Use, No Respiratory Distress, Normal Breath Sounds Cardiovascular: No Murmur, No Gallop, Regular Rate/Rhythm Breast Exam: Deferred Gastrointestinal: NOT DONE Genitalia: Deferred Pelvic: Deferred Rectal: Deferred Extremities: Normal capillary refill, Normal range of motion Musculoskeletal : Extremity Location: Knee (TTP to right anterior knee noted. Scars noted from previous right knee replacement. No erythema/swelling/skin changes appreciated), Shoulder (TTP to right proximal humerus noted. No skin changes/deformity noted.) Neurologic: Alert, Normal Affect, Normal Mood, No Sensory Deficits Cerebellar Function: Normal Reflexes: Normal Skin: Dry, Warm, Other (TTP/mild swelling/erythema noted to right index finger. No bony tenderness/drainage noted) Peripheral Pulses: 2+ Radial (R), 2+ Radial (L), 2+ Brachial (R), 2+ Brachial (L) Lymphatic: No Adenopathy Was a procedure done? Was a procedure done?: No Sedation Sedation?: No Differential Diagnosis EXT Differential Diagnosis: Fracture, Dislocation, Septic, Neurovascular injury X-Ray, Labs, Meds, VS Vital Signs Date Time Temp Pulse Resp B/P (MAP) Pulse Ox O2 Delivery O2 Flow Rate FiO2 02/09/25 18:19 98.2 110 14 152/74 96 98.2 Lab Test 02/09/25 23:35 02/09/25 23:30 Range/Units POC Glucose 292 H 70-106 mg/dl White Blood Count 10.2 4.4-10.8 10^3/uL Red Blood Count 4.37 4.0-5.20 10^6/uL Hemoglobin 12.5 12.2-16.2 g/dL Hematocrit 37.0 36.0-46.0 % Mean Corpuscular Volume 84.7 80.0-100.0 fL Mean Corpuscular Hemoglobin 28.7 28.0-32.0 pg Mean Corpuscular Hemoglobin Concent 33.9 32.0-36.0 g/dL Red Cell Distribution Width 16.3 H 11.8-14.3 % Platelet Count 320 140-450 10^3/uL Mean Platelet Volume 7.6 6.9-10.8 fL Neutrophils (%) (Auto) 74.5 37.0-80.0 % Lymphocytes (%) (Auto) 16.7 10.0-50.0 % Monocytes (%) (Auto) 7.6 0.0-12.0 % Eosinophils (%) (Auto) 0.6 0.0-7.0 % Basophils (%) (Auto) 0.6 0.0-2.0 % Neutrophils # (Auto) 7.6 1.6-8.6 10 ^3/uL Lymphocytes # (Auto) 1.7 0.4-5.4 10 ^3/uL Monocytes # (Auto) 0.8 0-1.3 10 ^3/uL Eosinophils # (Auto) 0.1 0-0.8 10 ^3/uL Basophils # (Auto) 0.1 0-0.2 10 ^3/uL Nucleated Red Blood Cells 0.1 % Sodium Level 137 136-145 mmol/L Potassium Level 3.8 3.5-5.1 mmol/L Chloride Level 102 98-107 mmol/L Carbon Dioxide Level 27 20-31 mmol/L Anion Gap 8 5-15 Blood Urea Nitrogen 15 9-23 mg/dL Creatinine 0.76 0.550-1.02 mg/dL Glomerular Filtration Rate Calc 86 >90 mL/min BUN/Creatinine Ratio 19.7 10.0-20.0 Serum Glucose 299 H 74-106 mg/dL Calcium Level 9.4 8.7-10.4 mg/dL Current Medications Medications (Trade) Dose Ordered Sig/Ibrahima Route Start Time Stop Time Status Last Admin Ceftriaxone Sodium (Rocephin) 1,000 mg ONCE ONCE IM 02/09/25 20:45 02/09/25 20:46 DC 02/09/25 20:48 Acetaminophen/ Hydrocodone Bitart ([place] 10/325MG Tab) 1 tab ONCE ONCE PO 02/09/25 20:45 02/09/25 20:46 DC 02/09/25 20:48 Clindamycin Phosphate 50 ml @ 50 mls/hr ONCE ONCE IV 02/09/25 23:15 02/10/25 00:14 DC 02/10/25 00:41 Sodium Chloride 1,000 ml @ 1,000 mls/hr Q1H ONCE IV 02/09/25 23:45 02/10/25 00:44 DC 02/09/25 23:45 PATIENT: OVIDIO ZENDEJASACCT: [id number]: [id number] : 1955 LOC: ER ROOM / BED: / AGE / SEX: 69 / F ADM STATUS: REG ER SERVICE 55 ORDERING PHYSICIAN: MIROSLAVA LOCKE PROCEDURE(s): RSHD2 - R SHOULDER 2+ VIEW XRAY REASON: right shoulder pain ORDER NUMBER(s): [id number], ACCESSION NUMBER(s): [id number] CLINICAL HISTORY: right shoulder pain TECHNIQUE: 3 views of the right shoulder were obtained. COMPARISON: None FINDINGS: No acute fracture or dislocation is seen. No soft tissue abnormality is evident. There are mild degenerative changes of the acromioclavicular joint with osteophyte formation. There are mild degenerative changes of the glenohumeral joint with osteophyte formation. There is a subacromial spur. IMPRESSION: NO ACUTE RADIOGRAPHIC ABNORMALITY OF THE RIGHT SHOULDER. ATED BY: DAVID NAVAS MD DICTATED DATE/TIME: 02/09/251946 SIGNED BY: DAVID NAVAS MD SIGNED DATE/TIME: 02/09/251946 CC: PATIENT: OVIDIO ZENDEJASACCT: [id number] UNIT: [id number] : 1955 LOC: ER ROOM / BED: / AGE / SEX: 69 / F ADM STATUS: REG ER SERVICE 55 ORDERING PHYSICIAN: MIROSLAVA LOCKE PROCEDURE(s): RKN3 - R KNEE 3V XRAY REASON: right knee pain ORDER NUMBER(s): [id number], ACCESSION NUMBER(s): [id number] EXAM: XY R KNEE 3V XRAY INDICATION: right knee pain TECHNIQUE: 4 views of the right knee COMPARISON: CT CT R KNEE WO CONTRAST on DOS: 03/31/24 FINDINGS/IMPRESSION: No radiographic evidence of an acute osseous abnormality. There is no acute fracture, osseous malalignment, or aggressive focal osseous lesion. Right total knee arthroplasty. No osseous lucency along the hardware bone interfaces. No perihardware fracture. ATED BY: SHAHNAZ LEW MD DICTATED DATE/TIME: 02/09/251950 SIGNED BY: SHAHNAZ LEW MD SIGNED DATE/TIME: 02/09/251950 CC: Right shoulder x-ray reviewed Right knee x-ray reviewed Rocephin 1 g IM ordered [place] 10/325 mg p.o. ordered Hep-lock IV ordered Clindamycin 600 mg IV ordered NS 1 liter IV ordered CBC reviewed without any significant abnormalities BMP reviewed- serum glucose 299 Patient with PMH significant for poorly controlled DM states her flat folder left her to go to [place] and is locked out of her home until Sunday Social work consult placed Patient admitted to hospitalist for poorly controlled DM/need for social work consult Images Reviewed?: Images reviewed and evaluated by me Time of 1ST Reevaluation: 20:04 Reevaluation 1ST: N/A Patient Education/Counseling: Diagnosis, Treatment, Prognosis, Need For Follow Up Family Education/Counseling: No Family Present Departure 1 Departure Time of Disposition: 20:33 Impression: Primary Impression: Poorly controlled diabetes mellitus Additional Impressions: Chronic right shoulder pain Chronic pain of right knee Cellulitis of right index finger Disposition: ADMITTED INPATIENT Condition: Stable Critical Care Note Critical Care Time?: No Stability Stability form required: No Heart Score Heart Score: Heart Score Response (Comments) Value History N/A 0 EKG N/A 0 Age N/A 0 Risk Factors N/A 0 Troponin N/A 0 Total 0 MIROSLAVA LOCKE Feb 09, 2025 20:36
[2025-02-09] MEDS: cefTRIAXone SOD 1,000 MG VL IM ONE (20:48)
[2025-02-09] MEDS: HYDROcodone-ACET 10/325MG TAB PO ONE (20:48)
[2025-02-09] MEDS: SODIUM CHLORIDE 0.9% 1,000 ML IV ONE (23:45)
[2025-02-09 23:51] LABS: Hematocrit 37.0 % (36.0-46.0); Hemoglobin 12.5 g/dL (12.2-16.2); Mean Corpuscular Hemoglobin 28.7 pg (28.0-32.0); Mean Corpuscular Volume 84.7 fL (80.0-100.0); Nucleated Red Blood Cells % 0.1 %
[2025-02-10] VITALS (8 sets, daily range): BP systolic 137–152; BP diastolic 76–88; PULSE 89–94; RESP 12–20; TEMP 98–98.8; O2SAT 94–97
[2025-02-10] LABS: Chloride 102 mmol/L (98-107); Potassium 3.8 mmol/L (3.5-5.1); Sodium 137 mmol/L (136-145)
[2025-02-10] MEDS ORDERED: ONDANSETRON HCL 4 MG/2 ML VIAL IV PRN
[2025-02-10] MEDS ORDERED: ACETAMINOPHEN 325 MG TAB PO PRN
[2025-02-10 00:01] LABS: Anion Gap 8 (5-15); Calcium 9.4 mg/dL (8.7-10.4); Carbon Dioxide 27 mmol/L (20-31)
[2025-02-10 00:06] LABS: BUN/Creatinine Ratio 19.7 (10.0-20.0); Blood Urea Nitrogen 15 mg/dL (9-23)
[2025-02-10 00:07] LABS: Glucose 299 mg/dL (74-106)
[2025-02-10] MEDS: METOPROLOL TARTRATE 25 MG TAB PO ONE (00:40)
[2025-02-10] MEDS: CLINDAMYCIN 600MG IV 50 ML IV ONE (00:41)
[2025-02-10] MEDS: HYDROcodone-ACET 5/325MG TAB PO PRN (00:41)
--- NOTE | 2025-02-10 01:33 | DVHHP2 ---
History of Present Illness Reason for Visit: Right index finger infection History of Present Illness 69-year-old female presents for evaluation of possible infection to her right index finger. The patient reports a two day history of swelling to her right index finger. Denies fever or chills. Patient is diabetic. She also reports chronic right shoulder and knee pain. Past Medical History Hypertension and diabetes mellitus Past Surgical History Right knee replacement Family History Noncontributory Smoke: No ALCOHOL: none Drugs: None Review of Systems Review of Systems Review of systems are currently negative otherwise addressed in HPI. Allergies: Coded Allergies: NO KNOWN ALLERGIES (Unverified , 01/05/24) Medications Current Medications Medications Dose Ordered Sig/Ibrahima Route Start Time Stop Time Status Last Admin Dose Admin Metoprolol Tartrate 25 mg BID PO 02/10/25 10:00 Atorvastatin Calcium 40 mg HS PO 02/10/25 22:00 Acetaminophen/ Hydrocodone Bitart 1 tab Q4HP PRN PO 02/10/25 00:00 02/10/25 00:41 1 TAB Ondansetron HCl 4 mg Q4HP PRN IV 02/10/25 00:00 Acetaminophen 650 mg Q6HP PRN PO 02/10/25 00:00 Clindamycin Phosphate 50 ml @ 50 mls/hr Q8H IV 02/10/25 09:00 Hydralazine HCl 10 mg Q6HP PRN IV 02/10/25 01:15 Amlodipine Besylate 10 mg DAILY PO 02/10/25 10:00 Aspirin 81 mg DAILY PO 02/10/25 10:00 Exam Vital Signs Vital Signs Date Time Temp Pulse Resp B/P (MAP) Pulse Ox O2 Delivery O2 Flow Rate FiO2 02/10/25 00:40 93 203/111 02/10/25 00:23 12 97 Room Air* 0 21 02/09/25 18:19 98.2 98.2 Exam Gen: 69-year-old female in mild distress Skin: Warm, dry, normal color and texture, no rash. HEENT: Normocephalic atraumatic, mucous membranes moist and pink. Neck: Cervical and supraclavicular nodes normal without enlargement, trachea is midline, thyroid gland is normal without masses. Pulmonary: Clear to auscultation and percussion bilaterally. Cardiac: Regular rate and rhythm. No murmur Abdomen: Soft, nontender, nondistended, bowel sounds present all 4 quadrants, no guarding, no rigidity, no organomegaly. Extremities: No cyanosis, clubbing, right index finger swelling with cellulitis Neuro: Cranial nerves II through XII grossly intact, normal affect and speech, no focal motor deficits. Labs/Xrays Labs Test 02/09/25 23:35 02/09/25 23:30 Range/Units POC Glucose 292 H 70-106 mg/dl White Blood Count 10.2 4.4-10.8 10^3/uL Red Blood Count 4.37 4.0-5.20 10^6/uL Hemoglobin 12.5 12.2-16.2 g/dL Hematocrit 37.0 36.0-46.0 % Mean Corpuscular Volume 84.7 80.0-100.0 fL Mean Corpuscular Hemoglobin 28.7 28.0-32.0 pg Mean Corpuscular Hemoglobin Concent 33.9 32.0-36.0 g/dL Red Cell Distribution Width 16.3 H 11.8-14.3 % Platelet Count 320 140-450 10^3/uL Mean Platelet Volume 7.6 6.9-10.8 fL Neutrophils (%) (Auto) 74.5 37.0-80.0 % Lymphocytes (%) (Auto) 16.7 10.0-50.0 % Monocytes (%) (Auto) 7.6 0.0-12.0 % Eosinophils (%) (Auto) 0.6 0.0-7.0 % Basophils (%) (Auto) 0.6 0.0-2.0 % Neutrophils # (Auto) 7.6 1.6-8.6 10 ^3/uL Lymphocytes # (Auto) 1.7 0.4-5.4 10 ^3/uL Monocytes # (Auto) 0.8 0-1.3 10 ^3/uL Eosinophils # (Auto) 0.1 0-0.8 10 ^3/uL Basophils # (Auto) 0.1 0-0.2 10 ^3/uL Nucleated Red Blood Cells 0.1 % Sodium Level 137 136-145 mmol/L Potassium Level 3.8 3.5-5.1 mmol/L Chloride Level 102 98-107 mmol/L Carbon Dioxide Level 27 20-31 mmol/L Anion Gap 8 5-15 Blood Urea Nitrogen 15 9-23 mg/dL Creatinine 0.76 0.550-1.02 mg/dL Glomerular Filtration Rate Calc 86 >90 mL/min BUN/Creatinine Ratio 19.7 10.0-20.0 Serum Glucose 299 H 74-106 mg/dL Calcium Level 9.4 8.7-10.4 mg/dL SEPSIS Sepsis Screen Date sepsis recognized/suspect: Feb 10, 2025 Time Sepsis recognized/suspect: 0026 Recent Procedure: No On Antibiotic Therapy: Yes Respiratory Rate >20: No Heart Rate >90: No Temp<36 C (96.8 F) or >38.3 C: No SBP <90 or MAP <65 mmHG: No New Acute Mental Status Change: No Is the patient on CPAP, BIPAP,: No Physician Orders R Knee 3v Xray (02/09/25 18:56) R Shoulder 2+ View Xray (02/09/25 18:56) Heplock Iv (02/09/25 ) * Bundler [employer] Consult (02/09/25 ) Admit (02/09/25 23:59) Metoprolol Tartrate Tablet (Lopressor Ta (02/10/25 10:00) Consistent Carb(Ccho)Diabetes (02/10/25 Breakfast) Atorvastatin (Lipitor) (02/10/25 22:00) Hydrocodone-Acet 5/325mg Tab ([place] 5/32 (02/10/25 00:00) Ondansetron Hcl (Zofran) (02/10/25 00:00) Condition: Stable (02/10/25 00:00) Acetaminophen Tablet (Tylenol Tablet) (02/10/25 00:00) Bedrest With Bathroom Privileg (02/10/25 00:00) Blood Culture (02/10/25 01:04) Clindamycin 600mg Iv (Cleocin Iv) (02/10/25 09:00) Hydralazine Injection (Apresoline Inject (02/10/25 01:15) Amlodipine Tablet (Norvasc Tablet) (02/10/25 10:00) Aspirin Tablet (02/10/25 10:00) Vital Signs Date Time Temp Pulse Resp B/P (MAP) Pulse Ox O2 Delivery O2 Flow Rate FiO2 02/10/25 00:40 93 203/111 02/10/25 00:23 89 12 97 Room Air* 0 21 02/09/25 18:19 98.2 110 14 152/74 96 98.2 Laboratory Tests Test 02/09/25 23:30 White Blood Count 10.2 10^3/uL (4.4-10.8) Medications Medications Dose Ordered Sig/Ibrahima Route Start Time Stop Time Status Last Admin Dose Admin Acetaminophen/ Hydrocodone Bitart 1 tab ONCE ONCE PO 02/09/25 20:45 02/09/25 20:46 DC 02/09/25 20:48 1 TAB Acetaminophen/ Hydrocodone Bitart 1 tab Q4HP PRN PO 02/10/25 00:00 02/10/25 00:41 1 TAB Ceftriaxone Sodium 1,000 mg ONCE ONCE IM 02/09/25 20:45 02/09/25 20:46 DC 02/09/25 20:48 1,000 MG Clindamycin Phosphate 50 ml @ 50 mls/hr ONCE ONCE IV 02/09/25 23:15 02/10/25 00:14 DC 02/10/25 00:41 50 MLS/HR Metoprolol Tartrate 25 mg ONCE ONCE PO 02/10/25 00:00 02/10/25 00:21 DC 02/10/25 00:40 25 MG Sodium Chloride 1,000 ml @ 1,000 mls/hr Q1H ONCE IV 02/09/25 23:45 02/10/25 00:44 DC 02/09/25 23:45 1,000 MLS/HR Assessment/Plan Assessment/Plan Assessment Uncontrolled diabetes mellitus Hypertensive crisis Chronic pain syndrome Right index finger cellulitis Plan Admit the patient to [facility] to the hospitalist Rocephin/clindamycin Blood cultures pending Resume home medications Continue treatment per orders. Plan discussed with: Patient My Orders Orders - YOLI HALE AGACNP Procedure Category Date Status Time Admit ADMIT 02/09/25 Transmitted 23:59 Metoprolol Tartrate PHA 02/10/25 In Process Tablet (Lopressor Ta 10:00 Consistent DIET 02/10/25 Transmitted Carb(Ccho)Diabetes Breakfast Atorvastatin (Lipitor) PHA 02/10/25 In Process 22:00 Hydrocodone-Acet PHA 02/10/25 In Process 5/325mg Tab ([place] 00:00 Ondansetron Hcl PHA 02/10/25 In Process (Zofran) 00:00 Condition: Stable MAI 10/21/25 In Process 00:00 Acetaminophen Tablet PHA 10/21/25 In Process (Tylenol Tablet) 00:00 Bedrest With Bathroom MAI 02/10/25 In Process Privileg 00:00 Blood Culture CARMEN 02/10/25 Uncollected 01:04 Clindamycin 600mg Iv PHA 02/10/25 In Process (Cleocin Iv) 09:00 Hydralazine Injection PHA 02/10/25 In Process (Apresoline Inject 01:15 Amlodipine Tablet PHA 02/10/25 In Process (Norvasc Tablet) 10:00 Aspirin Tablet PHA 02/10/25 In Process 10:00 Date of Service: Feb 09, 2025 Billing Provider: YOLI HALE Common Visit Codes: [id number] INP/OBS CARE (MOD) YOLI HALE Feb 10, 2025 01:33
[2025-02-10] MEDS ORDERED: DEXTROSE (50%) 50ML SYRG IV PRN ×2 (06:15→13:30)
[2025-02-10] MEDS: ACCU-CHEK COMFORT CURVE STRIP VI SCH ×2 (08:00→17:06)
[2025-02-10] MEDS: InsuLIN REG 1unit/0.01ml Soln (100units/ml) SC SCH ×2 (08:10→17:59)
[2025-02-10] MEDS: CLINDAMYCIN 600MG IV 50 ML IV SCH (09:05)
[2025-02-10] MEDS: hydrALAZINE HCL 20 MG/ML VL IV PRN (09:09)
[2025-02-10] MEDS ORDERED: METOPROLOL TARTRATE 25 MG TAB PO SCH (10:00)
[2025-02-10] MEDS: METOPROLOL TARTRATE 25 MG TAB PO SCH (11:10)
--- NOTE | 2025-02-10 11:42 | DVHPN2 ---
Subjective The patient seen and examined at bedside. Feel a little bit better. Reviewed: Care Plan, H&P, Labs, Medications, Previous Orders, Radiology Changes from previous H/P or p: No Changes Objective Vitals Vital Signs Date Time Temp Pulse Resp B/P (MAP) Pulse Ox O2 Delivery O2 Flow Rate FiO2 02/10/25 11:11 139/88 02/10/25 11:10 89 02/10/25 09:45 98.8 20 97 98.8 02/10/25 08:00 Room Air* 0 21 General Appearance: Alert, Oriented X3, Cooperative, No acute distress HEENT: Atraumatic, PERRLA, EOMI, Mucous membr. moist/pink Neck: Supple Lungs: Clear to auscultation, Normal air movement Cardiovascular: Regular rate, Normal S1, Normal S2, No murmurs, Gallops, Rubs Abdomen: Normal bowel sounds, Soft, No tenderness Neuro: Cranial nerves 3-12 NL Psych/Mental Status: Mental status NL Medications Current Medications Medications Dose Ordered Sig/Ibrahima Route Start Time Stop Time Status Last Admin Dose Admin Metoprolol Tartrate 25 mg BID PO 02/10/25 10:00 02/10/25 11:10 25 MG Atorvastatin Calcium 40 mg HS PO 02/10/25 22:00 Acetaminophen/ Hydrocodone Bitart 1 tab Q4HP PRN PO 02/10/25 00:00 02/10/25 11:12 1 TAB Ondansetron HCl 4 mg Q4HP PRN IV 02/10/25 00:00 Acetaminophen 650 mg Q6HP PRN PO 02/10/25 00:00 Clindamycin Phosphate 50 ml @ 50 mls/hr Q8H IV 02/10/25 09:00 02/10/25 09:05 50 MLS/HR Hydralazine HCl 10 mg Q6HP PRN IV 02/10/25 01:15 02/10/25 09:09 10 MG Amlodipine Besylate 10 mg DAILY PO 02/10/25 10:00 02/10/25 11:11 10 MG Aspirin 81 mg DAILY PO 02/10/25 10:00 02/10/25 11:10 81 MG Ceftriaxone Sodium 50 ml @ 100 mls/hr DAILY@2100 IV 02/10/25 21:00 Diagnostic Test (Pha) 1 strip Q6HR 02/10/25 07:10 02/10/25 08:00 1 STRIP Insulin Human Regular Q6HR SC 02/10/25 07:11 02/10/25 08:10 6 UNITS Dextrose 50 ml UD PRN IV 02/10/25 06:15 Laboratory Results Laboratory Tests 02/09/25 23:30 Chemistry Test 02/09/25 23:30 Calcium Level 9.4 mg/dL (8.7-10.4) Labs and/or images reviewed: Labs reviewed by me Assessment/Plan Assessment/Plan Uncontrolled diabetes mellitus Hypertensive crisis Chronic pain syndrome Right index finger cellulitis Continue current management. Will change SSI to high and aggressive scale. will add lantus 20 units sq qhs will continue Rocephin and clindamycin IV. will follow up closely with her infection. Plan discussed with: Patient Date of Service: Feb 10, 2025 Billing Provider: JESSICA ROWAN MD Common Visit Codes: [id number] INP/OBS CARE(HIGH) JESSICA ROWAN MD Feb 10, 2025 11:42
--- NOTE | 2025-02-10 14:00 | DVH ---
EXAM: XY R 2ND FINGER XRAY CLINICAL INDICATION: swollen index finger TECHNIQUE: XY R 2ND FINGER XRAY Comparison: None FINDINGS/IMPRESSION: Diffuse soft tissue swelling about the 2nd digit. 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 No definite fractu re.
--- NOTE | 2025-02-10 14:12 | DVH ---
Exam: US RIGHT UPPER EXT. Date: 02/10/2025 01:20 PM Clinical History: Blister Comparison: XY R SHOULDER 2+ VIEW XRAY on DOS: 02/09/25, XY R KNEE 3V XRAY on DOS: 02/09/25, XR ANKLE COMP RT on DOS: 09/03/24, US GUIDED VASCULAR ACCESS on DOS: 09/03/24, US BILAT LOW EXT ART DUPLEX on D OS: 01/05/24 Findings: Targeted sonographic evaluation of the soft tissues of the right 2nd digit was obtained utilizing gra yscale and color Doppler imaging. Diffuse soft tissue swelling with fluid and debris seen in the area of the blister extending about th e 2nd digit. This measures 2.7 x 1 x 2.4 cm. IMPRESSION: Diffuse soft tissue swelling with fluid and debris seen in the area of the blister extending about th e 2nd digit. This measures 2.7 x 1 x 2.4 cm. END IMPRESSION:
[2025-02-10] MEDS: OXYCODONE W/ ACETAMINOPHEN 5/325MG TABLET PO PRN (15:47)
[2025-02-10 21:14] LABS: Urine Protein, UAD TRACE (Negative)
[2025-02-10] MEDS ORDERED: ATORVASTATIN 20 MG TAB PO SCH (22:00)
[2025-02-10] MEDS: GABAPENTIN 300 MG CAP PO SCH (22:12)
[2025-02-10] MEDS: ATORVASTATIN 20 MG TAB PO SCH (22:12)
[2025-02-10] MEDS: INSULIN LANTUS (GLARGINE) 1 /0.01ml (100units/ml) SC SCH (23:16)
[2025-02-11] VITALS (7 sets, daily range): BP systolic 121–180; BP diastolic 75–101; PULSE 65–94; RESP 13–19; TEMP 96.9–98.7; O2SAT 92–98
[2025-02-11] MEDS: MELATONIN 5 MG TAB PO ONE (00:52)
[2025-02-11] MEDS: MELATONIN 5 MG TAB ONE (00:56)
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
--- NOTE | 2025-02-11 11:43 | MEDREC ---
DVH ASP Intervention Section I Assessment of apprpriate abx f: Skin & soft tissue infect (Patient shows no signs/symptoms of necrotizing faciitis or toxic shock syndrome. Please consider d/c clindamycin) [facility] Feb 11, 2025 11:43
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
--- NOTE | 2025-02-11 20:38 | DVHINCON2 ---
Consult Note Consult Consult Note Reason for Consultation: Right index finger erythema, swelling, and pain evaluation for abscess. History of Present Illness: Ross Turcios is an inpatient diabetic patient, clinically well-controlled during this admission. The patient presents with a four-day history of right index finger erythema, swelling, and pain. She does not recall any direct trauma or injury but reports that a small blister formed on the right index finger, which progressed overnight to cause swelling and pain. The patient denies any erythema, swelling, or pain involving the volar pad, palmar aspect, or dorsal aspect of the right hand outside the affected finger. X-ray of the right hand was reviewed no evidence of fracture, foreign body, or osteomyelitis. US revelas soft tissue swelling The case was discussed with Dr. Huff, who plans to perform incision and drainage (I&D) of the abscess. Past Medical History: Diabetes mellitus (well-controlled in hospital 142 random glucose) Physical Examination: General: Awake, alert, oriented 3, in mild distress due to finger pain. Right Hand / Index Finger: Erythema and swelling localized to the right index finger. Tenderness to palpation over distal and middle phalanx. Painful ROM with minimal flexion and extension due to swelling and pain No erythema or edema extending to volar pad, palmar aspect, or dorsal hand. No open wound or drainage observed. Capillary refill <2 seconds; intact distal sensation and motion. Other Extremities: No deformity, swelling, or tenderness. Palmar aspect of right hand with no erythema, lesions or swelling. Imaging: US RIGHT HAND Diffuse soft tissue swelling with fluid and debris seen in the area of the blister extending about the 2nd digit. This measures 2.7 x 1 x 2.4 cm. XRAY RIGHT HAND Diffuse soft tissue swelling about the 2nd digit. 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 No definite fracture. Assessment: Right index finger abscess. Diabetes mellitus, well controlled. Plan: 1. Surgical Management: Proceed with incision and drainage (I&D) of the right index finger abscess scheduled for tomorrow with Dr. Bustos on 02/12/2025 1300. 2. Preoperative Instructions: NPO after midnight. Consent obtained for procedure right hand indeax finger Incision and drainage. 3. Antibiotic Therapy: Continue broad-spectrum antibiotics as directed by the medical team until cultures are finalized. 4. Glycemic Control: Continue close glucose monitoring; maintain good diabetic control perioperatively. 5. Follow-up: Postoperative evaluation by orthopedic team after procedure. 6. Education: Discussed diagnosis, need for I&D, and postoperative care plan with patient. Discussed importance of diabetes control discussed at length Patient verbalized understanding and agreement with plan. Risks discussed in depth with patient. Risks include but not exclusive to bleeding infection nerve injury need for further surgery blood clots cardiac and pulmonary complications amputation and . Patient understands and wishes to proceed with surgery. Plan discussed with: Patient, Other (bedside nurse) Visit Coding Surgery Date of Service if different f: Feb 11, 2025 Billing Provider: BONNIE ZENDEJAS Surgery Visit Codes: [id number] - INP CONSULT <55 MIN BONNIE ZENDEJAS Feb 11, 2025 20:38 YENI BUSTOS MD Feb 12, 2025 10:37
[2025-02-11 21:44] LABS: INR 0.98 (0.9-1.15); Partial Thromboplastin Time 26.8 SEC (24.5-34.5); Prothrombin Time 10.4 sec (9.3-11.8)
--- NOTE | 2025-02-11 22:23 | DVH ---
CHEST RADIOGRAPH Indication: PRIOR TO PROCEDURE Technique: Single frontal view of the chest was obtained Comparison: XR CHEST 1 VIEW on DOS: 09/03/24, XY CHEST PORTABLE on DOS: 08/09/24, XY CHEST PORTABLE on DOS: 03/29/24 FINDINGS: Lines and Tubes: None Lungs: No focal consolidation. Pleura: No effusion. No pneumothorax. Cardiomediastinal contours: Unremarkable Bones: No acute osseous abnormality. IMPRESSION: 1. No acute cardiopulmonary disease.
[2025-02-12] VITALS (8 sets, daily range): BP systolic 110–159; BP diastolic 68–90; PULSE 83–111; RESP 17–69; TEMP 98–98.7; O2SAT 90–97
[2025-02-12 07:13] LABS: Hematocrit 37.1 % (36.0-46.0); Hemoglobin 12.7 g/dL (12.2-16.2); Mean Corpuscular Hemoglobin 28.9 pg (28.0-32.0); Mean Corpuscular Volume 84.1 fL (80.0-100.0); Nucleated Red Blood Cells % 0.1 %
[2025-02-12 07:22] LABS: Chloride 104 mmol/L (98-107); Sodium 138 mmol/L (136-145)
[2025-02-12 07:23] LABS: Anion Gap 9 (5-15); Carbon Dioxide 25 mmol/L (20-31)
[2025-02-12 07:28] LABS: BUN/Creatinine Ratio 21.7 (10.0-20.0); Blood Urea Nitrogen 15 mg/dL (9-23)
[2025-02-12 07:35] LABS: Calcium 8.3 mg/dL (8.7-10.4); Glucose 155 mg/dL (74-106); Potassium 3.5 mmol/L (3.5-5.1)
[2025-02-12] MEDS ORDERED: MIDAZOLAM HCL 2MG/2ML 2ml VIAL (1mg/ml) ONE (10:35)
[2025-02-12] MEDS ORDERED: fentaNYL CITRATE 100 MCG/2 ML VL ONE (10:35)
--- NOTE | 2025-02-12 10:44 | DVHOP2 ---
Operative Report - 2 Report Details Date: 02/12/25 Preop Diagnosis: Infected right index finger with volar and dorsal abscess Postop Diagnosis: Infected right index finger with volar and dorsal abscess, tenosynovitis Surgeon: Juan Diego Bustos MD Anesthesiologist: Alysha Morrow Anesthesia: Mac, Regional Consent: The patient was informed of the risks and benefits of the procedure. These include but are not limited to complications of anesthesia, postoperative infection, incomplete relief of symptoms, recurrence of symptoms, damage to blood vessels, nerves and tendons, deep venous thrombosis, pulmonary embolism and possible need for repeat surgery in the future. Estimated Blood Loss: 5 cc Name of Procedure Performed 1. Irrigation and debridement or right index finger 2. Right index finger A1 ranulfo release 3. Right index finger flexor synovectomy Procedure Details Procedure Details: After appropriate anesthesia and sterile preparation, attention was directed to the right index finger. Longitudinal incisions were made over both the volar and dorsal abscess sites. Purulent material was expressed and cultures obtained. All nonviable tissue was sharply debrided. The flexor tendon sheath was irrigated copiously with normal saline. We irrigated the finger with 3L of NS on low flow pulse. The A1 ranulfo was released to ensure complete decompression and drainage of the tendon sheath. The wounds were left partially open for continued drainage and dressed appropriately with iodoform/4x4/frank. Patient tolerated procedure well and was taken to recovery room. Specimen: culture of right index figner abscess Condition Fair Disposition Still a Patient JUAN DIEGO BUSTOS MD Feb 12, 2025 10:44
[2025-02-12] MEDS ORDERED: VANCOMYCIN PER PHARMACY 0 MG IV SCH (10:45)
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
[2025-02-12] MEDS: LIDOCAINE 1% HCL (LOCAL ANESTH.) INJ 20ML MDV ONE (10:50)
[2025-02-12] MEDS: BUPIVACAINE HCL 0.25% P/F 10 ML VIAL ONE (10:50)
[2025-02-12] MEDS ORDERED: PROPOFOL 10 MG/ML 20 ML IV ONE (10:55)
[2025-02-12] MEDS: ceFAZolin 2 GM/D5W50ml 50 ML IV ONE (11:17)
[2025-02-12] MEDS: VANCOMYCIN 750MG KIT 100 ML IV SCH (12:30)
[2025-02-13 00:57] VITALS: BP 157/93; PULSE 77; RESP 18; TEMP 97.9; O2SAT 94
[2025-02-13 05:00] VITALS: BP 132/78; PULSE 81; RESP 17; TEMP 98.6; O2SAT 97
[2025-02-13 07:44] LABS: Hematocrit 37.0 % (36.0-46.0); Hemoglobin 12.8 g/dL (12.2-16.2); Mean Corpuscular Hemoglobin 28.9 pg (28.0-32.0); Mean Corpuscular Volume 83.7 fL (80.0-100.0); Nucleated Red Blood Cells % 0.1 %
[2025-02-13 07:50] LABS: Anion Gap 10 (5-15); Carbon Dioxide 21 mmol/L (20-31); Chloride 102 mmol/L (98-107); Potassium 3.9 mmol/L (3.5-5.1)
[2025-02-13 07:51] LABS: Calcium 8.8 mg/dL (8.7-10.4)
[2025-02-13 07:56] LABS: Blood Urea Nitrogen 16 mg/dL (9-23); Glucose 246 mg/dL (74-106); Sodium 133 mmol/L (136-145)
[2025-02-13 07:59] LABS: BUN/Creatinine Ratio 23.9 (10.0-20.0)
[2025-02-13 09:00] VITALS: BP 138/82; PULSE 83; RESP 17; TEMP 97.7; O2SAT 96
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
[2025-02-13 13:00] VITALS: BP 143/87; PULSE 82; RESP 17; TEMP 97.8; O2SAT 96
[2025-02-13 17:00] VITALS: BP 147/78; PULSE 90; RESP 18; TEMP 98; O2SAT 97
[2025-02-13 21:00] VITALS: BP 141/86; PULSE 86; RESP 18; TEMP 98.7; O2SAT 96
[2025-02-13] MEDS: TEMAZEPAM 15 MG CAP PO PRN (22:51)
[2025-02-14 01:00] VITALS: BP 162/99; PULSE 86; RESP 17; TEMP 98.1; O2SAT 97
[2025-02-14 05:00] VITALS: BP 147/101; PULSE 85; RESP 17; TEMP 98.1; O2SAT 98
[2025-02-14 06:46] LABS: Hematocrit 37.6 % (36.0-46.0); Hemoglobin 12.7 g/dL (12.2-16.2); Mean Corpuscular Hemoglobin 28.7 pg (28.0-32.0); Mean Corpuscular Volume 84.7 fL (80.0-100.0); Nucleated Red Blood Cells % 0.1 %
[2025-02-14 07:04] LABS: Chloride 101 mmol/L (98-107); Potassium 4.1 mmol/L (3.5-5.1)
[2025-02-14 07:05] LABS: Anion Gap 10 (5-15); Carbon Dioxide 23 mmol/L (20-31)
[2025-02-14 07:10] LABS: BUN/Creatinine Ratio 21.8 (10.0-20.0); Blood Urea Nitrogen 17 mg/dL (9-23); Sodium 134 mmol/L (136-145)
[2025-02-14 07:11] LABS: Calcium 8.6 mg/dL (8.7-10.4); Glucose 321 mg/dL (74-106)
[2025-02-14 09:00] VITALS: BP 145/85; PULSE 74; RESP 20; TEMP 97.6; O2SAT 98
[2025-02-14 12:53] VITALS: BP 152/85; PULSE 83; RESP 20; TEMP 98; O2SAT 96
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
[2025-02-14 17:33] VITALS: BP 138/76; PULSE 73; RESP 20; TEMP 98.4; O2SAT 96
[2025-02-14 21:00] VITALS: BP 164/100; PULSE 97; RESP 18; TEMP 98.4; O2SAT 97
[2025-02-14] MEDS: INSULIN LANTUS (GLARGINE) 1 /0.01ml (100units/ml) SC SCH (21:38)
[2025-02-15] VITALS (7 sets, daily range): BP systolic 136–150; BP diastolic 76–89; PULSE 71–87; RESP 16–20; TEMP 97.6–98.7; O2SAT 94–97
[2025-02-15] MEDS: VANCOMYCIN 1GM/250ML KIT 250 ML IV SCH (00:31)
--- NOTE | 2025-02-15 08:12 | DVHPN2 ---
Progress Note Date Seen: Feb 15, 2025 Medical Necessity Reason Pt with a Central, PICC or Fol: No Subjective Patient reports: No new complaints Objective vital signs Vital Sign Date Time Temp Pulse Resp B/P (MAP) Pulse Ox O2 Delivery O2 Flow Rate FiO2 02/15/25 05:00 97.8 84 18 141/89 (106) 95 97.8 02/14/25 20:10 Room Air* 0 21 Total Intake and Output 02/14/25 02/14/25 02/15/25 15:00 23:00 07:00 Intake Total 450 ml 540 ml Balance 450 ml 540 ml medications Current Medications Medications Dose Ordered Sig/Ibrahima Route Start Time Stop Time Status Last Admin Dose Admin Metoprolol Tartrate 25 mg BID PO 02/10/25 10:00 02/14/25 21:37 25 MG Atorvastatin Calcium 40 mg HS PO 02/10/25 22:00 02/14/25 21:37 40 MG Acetaminophen/ Hydrocodone Bitart 1 tab Q4HP PRN PO 02/10/25 00:00 02/14/25 22:11 1 TAB Ondansetron HCl 4 mg Q4HP PRN IV 02/10/25 00:00 Acetaminophen 650 mg Q6HP PRN PO 02/10/25 00:00 Clindamycin Phosphate 50 ml @ 50 mls/hr Q8H IV 02/10/25 09:00 02/15/25 00:31 50 MLS/HR Hydralazine HCl 10 mg Q6HP PRN IV 02/10/25 01:15 02/11/25 00:23 10 MG Amlodipine Besylate 10 mg DAILY PO 02/10/25 10:00 02/14/25 09:37 10 MG Aspirin 81 mg DAILY PO 02/10/25 10:00 02/14/25 09:37 81 MG Ceftriaxone Sodium 50 ml @ 100 mls/hr DAILY@2100 IV 02/10/25 21:00 02/14/25 21:05 100 MLS/HR Oxycodone/ Acetaminophen 2 tab Q6HP PRN PO 02/10/25 12:45 02/15/25 00:30 2 TAB Gabapentin 600 mg BID PO 02/10/25 22:00 02/14/25 21:36 600 MG Diagnostic Test (Pha) 1 strip Q6HR 02/10/25 18:00 02/15/25 05:41 1 STRIP Insulin Human Regular Q6HR SC 02/10/25 18:00 02/15/25 00:28 8 UNITS Dextrose 50 ml UD PRN IV 02/10/25 13:30 Vancomycin HCl 0 ml @ 0 mls/hr PER PHARMACY IV 02/12/25 10:45 Temazepam 15 mg HS PRN PO 02/13/25 19:45 02/15/25 00:30 15 MG Insulin Glargine 25 units HS SC 02/14/25 22:00 02/14/25 21:38 25 UNITS Vancomycin HCl 250 ml @ 200 mls/hr Q16H IV 02/15/25 01:00 02/15/25 00:31 200 MLS/HR Examination: GENERAL:Normal, MSK:Abnormal laboratory and microbiology Laboratory Tests 02/14/25 05:46 Test 02/14/25 05:46 Range/Units Serum Glucose 321 H 74-106 mg/dL Microbiology Date/Time Source Procedure Growth Status 02/12/25 10:53 Finger Right Index Gram Stain - Final Resulted 02/12/25 10:53 Finger Right Index Anaerobic Culture - Preliminary Resulted 02/12/25 10:53 Finger Right Index Aerobic Culture - Preliminary Resulted Problem List/Assessment/Plan Problem List/Assessment/Plan 69 yo F sp I&D Right index finger 1. Warm soap soaks TID 2. Pain control 3. dressing changes 4. culture - gram + cocci 5. dc planning with wound care/ proper antibiotics 6. fu in [facility] ortho clinic in 1 week Plan discussed with: Patient My Orders My Orders Orders - YENI BUSTOS MD Procedure Category Date Status Time Vancomycin 1gm/250ml PHA 02/15/25 In Process Kit 01:00 Vancomycin,Trough LAB 02/17/25 Verified 00:00 Vancomycin Per MAI 02/14/25 In Process Pharmacy Protoc 15:03 Dietary Evaluation Review Comments: Nutrition Recommendation 1) Advance to [facility] 60gm + 2gm Na diet as medically feasible 2) Lamine 1 pk BID 3) Refer Director Surgical for diabetes education 4) Monitor PO intake, lab values, weight trend, and I/O Expected Outcomes/Goals: Intake to meet >75% estimated needs Wound to improve Lab values to improve Fu 3-5 days Interpretation of weight loss: >10% in 6 months Fluid Accumulation (N/A): N/A 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
[2025-02-15 10:15] LABS: Hematocrit 41.4 % (36.0-46.0); Hemoglobin 13.7 g/dL (12.2-16.2); Mean Corpuscular Hemoglobin 28.4 pg (28.0-32.0); Mean Corpuscular Volume 85.7 fL (80.0-100.0); Nucleated Red Blood Cells % 0.2 %
[2025-02-15 10:25] LABS: Chloride 104 mmol/L (98-107); Potassium 4.2 mmol/L (3.5-5.1); Sodium 137 mmol/L (136-145)
[2025-02-15 10:26] LABS: Anion Gap 8 (5-15); Calcium 9.0 mg/dL (8.7-10.4); Carbon Dioxide 25 mmol/L (20-31)
[2025-02-15 10:31] LABS: BUN/Creatinine Ratio 18.3 (10.0-20.0); Blood Urea Nitrogen 13 mg/dL (9-23); Glucose 205 mg/dL (74-106)
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
[2025-02-15] MEDS: INSULIN LANTUS (GLARGINE) 1 /0.01ml (100units/ml) SC SCH (21:56)
[2025-02-16 01:28] VITALS: BP 134/82; PULSE 86; RESP 16; TEMP 97.9; O2SAT 96
[2025-02-16 04:54] VITALS: BP 124/77; PULSE 74; RESP 18; TEMP 98.2; O2SAT 94
[2025-02-16 06:37] LABS: Hematocrit 38.8 % (36.0-46.0); Hemoglobin 12.9 g/dL (12.2-16.2); Mean Corpuscular Hemoglobin 28.8 pg (28.0-32.0); Mean Corpuscular Volume 86.5 fL (80.0-100.0); Nucleated Red Blood Cells % 0.1 %
[2025-02-16 06:53] LABS: Anion Gap 8 (5-15); Carbon Dioxide 24 mmol/L (20-31); Chloride 104 mmol/L (98-107); Potassium 4.2 mmol/L (3.5-5.1); Sodium 136 mmol/L (136-145)
[2025-02-16 06:54] LABS: Calcium 8.9 mg/dL (8.7-10.4)
[2025-02-16 06:59] LABS: BUN/Creatinine Ratio 19.4 (10.0-20.0); Blood Urea Nitrogen 14 mg/dL (9-23)
[2025-02-16 07:25] LABS: Glucose 124 mg/dL (74-106)
[2025-02-16 08:00] VITALS: PULSE 78
[2025-02-16 08:41] VITALS: BP 115/78; PULSE 78; RESP 16; TEMP 98.2; O2SAT 96
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
[2025-02-16] MEDS ORDERED: HYDR-4902 PO (10:23)
[2025-02-16] MEDS ORDERED: INSLANTI SC (10:23)
[2025-02-16] MEDS ORDERED: GABA-1250 PO (10:23)
[2025-02-16] MEDS ORDERED: CLIN150C PO (10:26)
[2025-02-16] MEDS ORDERED: LEVO500T91 PO (10:26)
[2025-02-16] MEDS ORDERED: INSU-567 XX (10:27)
[2025-02-16 16:41] VITALS: BP 115/78; PULSE 78; TEMP 36.8
== END 2025-02-16 17:03 | disposition home health service (06) | DRG 513 ==
LOC: EDBD 18:13 → EDUNIT# 18:13 → ER 18:13 → OVERFLOW 23:59 → CENTRAL 02-10 09:45
PROVIDERS: ADMIT Internal Medicine; ATTEND Internal Medicine
PROC: 0JBJ0ZZ Excision of Right Hand Subcutaneous Tissue and Fascia, Open Approach (ICD-10-PCS; principal; 2025-02-12 10:40)
DX: M65.841 Other synovitis and tenosynovitis, right hand (principal); I16.9 Hypertensive crisis, unspecified; L02.511 Cutaneous abscess of right hand; L03.011 Cellulitis of right finger; G89.4 Chronic pain syndrome; I10 Essential (primary) hypertension; F32.A Depression, unspecified; E11.40 Type 2 diabetes mellitus with diabetic neuropathy, unspecified; E66.01 Morbid (severe) obesity due to excess calories; Z96.651 Presence of right artificial knee joint; E11.9 Type 2 diabetes mellitus without complications; Z79.4 Long term (current) use of insulin; Z99.3 Dependence on wheelchair; Z68.32 Body mass index [BMI] 32.0-32.9, adult; Z79.899 Other long term (current) drug therapy
CPT/HCPCS: 36415; 71045; 73030; 73140; 73562; 76881; 80048; 80202; 81001; 82962; 85025; 85610; 85730; 86850; 86900; 86901; 87070; 87075; 87077; 87186; 87205; 96372; G0378; J0696; J1100; J1815; J2003; J2250; J2704; J3490